=== PATIENT | male | born 1940 | race Caucasian/White ===

== ENCOUNTER 2017-08-14 17:03 | Inpatient (IN) | payer OTHER, MEDICARE ==
[~2017-08-14] VITALS: Ht 180.3 cm; Wt 90.1 kg
[2017-08-14] VITALS (7 sets, daily range): BP systolic 109–128; BP diastolic 70–76; PULSE 85–120; RESP 16–18; TEMP 98.2; O2SAT 92–94
[~2017-08-14 17:03] MED LIST: ALLO100T PO; ALPR.5 PO; ASPI81TA11 PO; CARA1TAB6 PO; FURO1TAB62 PO; LEVO25TA4 PO; METF1000 PO; Morphine Pump; PANT40TA3 PO; PRAV40TA2 PO; REGL10TA5 PO; TERA2CAP3 PO
--- NOTE | 2017-08-14 17:34 | PD ---
HPI Chief Complaint: Respiratory Symptoms Time Seen by Provider: 17:15 Travel History International Travel<30 days: No Contact w/Intl Traveler<30days: No Traveled to known affect area: No History of Present Illness HPI 77 y/o male presents with difficulty breathing that has been going on for the past 3 days per his . She states he's also been congested and complaining of heartburn. He denies any fever. Patient's states when he is been like this before he was given Lasix and followed with the urologist. Patient states his antique finisher is Dr. Tripp and he maybe saw her about 4 months ago. Patient denies any other concurrent complaints and does not wear oxygen at home. History is supplemented from the but still poor historians as notes she was also recently in the hospital. PFS Past Medical History Narrative Medical by records Anxiety: Yes Cancer: No Cardiac Catheterization: Yes ( "50% blockage" ) Cardiovascular Problems: Yes High Cholesterol: Yes Diabetes: Yes Diminished Hearing: No Genitourinary: No Hepatitis: Yes (A) Hiatal Hernia: No Neurologic: Yes (altered mental status) Psychiatric: Yes Reproductive: No Respiratory: Yes (SLEEEP APNEA) Immunizations Current: No Sleep Apnea: Yes Thyroid Disease: No Past Surgical History Narrative Surgical by records Abdominal Surgery: Yes (LAP RYLIE) Body Medical Devices: MORPHINE PUMP RIGHT ABDOMEN Cholecystectomy: Yes Pacemaker: No Other Surgery: Yes (FINGERS AMPUTATED TO RIGHT HAND AND NOSE SURGERY) Social History Alcohol Use: No Tobacco Use: No Substance Use: No Allergies-Medications (Allergen,Severity, Reaction): Coded Allergies: MRI PRECAUTION (Verified Adverse Reaction, Severe, SPINAL STIMULATOR, ) DML 08/13/16, Reported Meds & Prescriptions Reported Meds & Active Scripts Active Reported Potassium Chloride ER (Potassium Chloride) 10 Meq Cap 10 Meq PO DAILY Hydrocodone-Acetaminophen 10-325 mg Tab 1 Tab PO Q6H PRN Dicyclomine (Dicyclomine HCl) 20 Mg Tab 20 Mg PO QID Trazodone (Trazodone HCl) 100 Mg Tablet 150 Mg PO HS Krill Oil 1,000 Mg Cap 1,000 Mg PO BID Vitamin D-1000 (Cholecalciferol) 1,000 Unit Tab 2,000 Units PO DAILY Magnesium Oxide 500 Mg Tab 500 Mg PO BID Carafate (Sucralfate) 1 Gm Tab 1 Gm PO TID On empty stomach [Morphine Pump] Terazosin (Terazosin HCl) 2 Mg Cap 2 Mg PO HS Xanax (Alprazolam) 0.5 Mg Tab 0.5 Mg PO PRN Lasix (Furosemide) 20 Mg Tab 20 Mg PO BID MOWEFR Pantoprazole (Pantoprazole Sodium) 40 Mg Tab 40 Mg PO DAILY Levothyroxine (Levothyroxine Sodium) 25 Mcg Tab 25 Mcg PO DAILY Allopurinol 100 Mg Tab 100 Mg PO DAILY Metformin (Metformin HCl) 1,000 Mg Tab 1,000 Mg PO BIDPC With meals Review of Systems ROS Limitations: Poor Historian Except as stated in HPI: all other systems reviewed are Neg Physical Exam Exam Limitations: Poor Historian Narrative GENERAL: Well-nourished, well-developed patient who appears ill, wearing oxygen. SKIN: Warm and dry. HEAD: Normocephalic and atraumatic. EYES: No injection or drainage. ENT: No nasal drainage noted. NECK: Supple, trachea midline. CARDIOVASCULAR: irregular rate and rhythm RESPIRATORY: Decreased aeration bilaterally. No accessory muscle use. tachypnea noted GASTROINTESTINAL: Abdomen soft, non-tender, nondistended. EXTREMITIES: 2+ pitting edema noted to knee bilaterally NEUROLOGICAL: Awake. Moves all extremities and sensory grossly within normal limits. Normal speech. Data Data Last Documented VS Orders Orders Electrocardiogram (08/14/17 17:15) Complete Blood Count With Diff (08/14/17 17:15) Comprehensive Metabolic Panel (08/14/17 17:15) Prothrombin Time / Inr (Pt) (08/14/17 17:15) Act Partial Throm Time (Ptt) (08/14/17 17:15) Lactic Acid Sepsis Protocol (08/14/17 17:15) Magnesium (Mg) (08/14/17 17:15) Phosphorus (Po4) (08/14/17 17:15) Ckmb (Isoenzyme) Profile (08/14/17 17:15) Troponin I (08/14/17 17:15) Urinalysis - C+S If Indicated (08/14/17 17:15) Influenzae A/B Antigen (08/14/17 17:15) Blood Culture (08/14/17 17:15) Chest, Single Ap (08/14/17 17:15) Ecg Monitoring (08/14/17 17:15) Iv Access Insert/Monitor (08/14/17 17:15) Oximetry (08/14/17 17:15) B-Type Natriuretic Peptide (08/14/17 17:24) Furosemide Inj (Lasix Inj) (08/14/17 18:00) CKMB (08/14/17 17:40) CKMB% (08/14/17 17:40) Vancomycin Inj (Vancomycin Inj) (08/14/17 18:30) Cefepime Inj (Maxipime Inj) (08/14/17 18:30) Aspirin (Aspirin) (08/14/17 18:30) Diet Npo (08/14/17 Dinner) Heparin Inj (Heparin Inj) (08/14/17 19:00) Heparin Inj (Heparin Inj) (08/15/17 01:00) Heparin Inj (Heparin Inj) (08/15/17 01:00) Heparin-D5w 25,000 U/250 Ml (Heparin-D5w (08/14/17 19:00) Act Partial Throm Time (Ptt) (08/15/17 01:52) Consult Cardiology (08/14/17 ) Admit Order (Ed Use Only) (08/14/17 19:03) Labs Laboratory Tests Test 08/14/17 17:40 08/14/17 18:53 White Blood Count 12.9 TH/MM3 Red Blood Count 4.07 MIL/MM3 Hemoglobin 11.5 GM/DL Hematocrit 35.6 % Mean Corpuscular Volume 87.4 FL Mean Corpuscular Hemoglobin 28.3 PG Mean Corpuscular Hemoglobin Concent 32.4 % Red Cell Distribution Width 14.5 % Platelet Count 230 TH/MM3 Mean Platelet Volume 7.6 FL Neutrophils (%) (Auto) 88.9 % Lymphocytes (%) (Auto) 4.4 % Monocytes (%) (Auto) 6.2 % Eosinophils (%) (Auto) 0.2 % Basophils (%) (Auto) 0.3 % Neutrophils # (Auto) 11.5 TH/MM3 Lymphocytes # (Auto) 0.6 TH/MM3 Monocytes # (Auto) 0.8 TH/MM3 Eosinophils # (Auto) 0.0 TH/MM3 Basophils # (Auto) 0.0 TH/MM3 CBC Comment DIFF FINAL Differential Comment Prothrombin Time 13.8 SEC Prothromb Time International Ratio 1.2 RATIO Activated Partial Thromboplast Time 27.5 SEC Blood Urea Nitrogen 17 MG/DL Creatinine 1.10 MG/DL Random Glucose 150 MG/DL Total Protein 6.9 GM/DL Albumin 3.6 GM/DL Calcium Level 8.4 MG/DL Phosphorus Level 3.3 MG/DL Magnesium Level 1.4 MG/DL Alkaline Phosphatase 61 U/L Aspartate Amino Transf (AST/SGOT) 67 U/L Alanine Aminotransferase (ALT/SGPT) 23 U/L Total Bilirubin 0.7 MG/DL Sodium Level 133 MEQ/L Potassium Level 4.9 MEQ/L Chloride Level 98 MEQ/L Carbon Dioxide Level 19.7 MEQ/L Anion Gap 15 MEQ/L Estimat Glomerular Filtration Rate 65 ML/MIN Lactic Acid Level 5.2 mmol/L Total Creatine Kinase 292 U/L Creatine Kinase MB 15.5 NG/ML Troponin I GREATER THAN 40.00 NG/ML B-Type Natriuretic Peptide 610 PG/ML Urine Color YELLOW Urine Turbidity CLEAR Urine pH 5.5 Urine Specific [place] 1.010 Urine Protein NEG mg/dL Urine Glucose (UA) NEG mg/dL Urine Ketones 15 mg/dL Urine Occult Blood NEG Urine Nitrite NEG Urine Bilirubin NEG Urine Leukocyte Esterase NEG Urine WBC 0-2 /hpf Urine Squamous Epithelial Cells 0-5 /hpf Microscopic Urinalysis Comment CULT NOT INDICATED MDM Medical Decision Making Medical Screen Exam Complete: Yes Emergency Medical Condition: Yes Medical Record Reviewed: Yes (pmh confirmed, prior ekg compared) Interpretation(s) EKG shows A. fib with RVR in the 120s with concern of left bundle branch block on prior was normal sinus rhythm with only IV conduction delay CBC & BMP Diagram 08/14/17 17:40 Total Protein 6.9, Albumin 3.6, Calcium Level 8.4 L, Phosphorus Level 3.3, Magnesium Level 1.4 L, Alkaline Phosphatase 61, Aspartate Amino Transf (AST/SGOT ) 67 H, Alanine Aminotransferase (ALT/SGPT) 23, Total Bilirubin 0.7 Last 24 hours Impressions Chest X-Ray 08/14/17 1715 Signed Impressions: Service Date/Time: Monday, August 14, 2017 17:27 - CONCLUSION: Spinal stimulator Moderate congestive failure. Esdras Bermeo MD FACR Troponin is greater than 40 BNP is 610 Lactate is in the 5 range which is likely related to cardiac event but will give cefepime and vancomycin to cover that he does not need IV fluids as he is an active CHF exacerbation Differential Diagnosis Sepsis, pneumonia, A. fib with RVR, anemia, renal failure, CHF, pneumonia, URI Narrative Course Will check blood work, lactic acid, influenza, chest x-ray and reevaluate Patient informed of chest x-ray and given Lasix and updated, given concern of ekg and symptoms cardiology paged, given aspirin, will elevated lactic acid will give cefepime and vancomycin to provide broad coverage as well Patient updated about results and agrees to admission and transfer. Heart rate and symptoms have improved with Lasix, hold nitroglycerin given blood pressure at current time. We will be placing on heparin drip and keeping nothing by mouth. Family at bedside and updated Critical Care Narrative Aggregate critical care time was 35 minutes. Time to perform other separately billable procedures was not included in the critical care time. My time did not include minutes spent treating any other patients simultaneously or on activities that did not directly contribute to the patient's treatment. The services I provided to this patient were to treat and/or prevent clinically significant deterioration that could result in: Dysrhythmia, failure, respiratory distress, I provided critical care services requiring my management, as noted below: Chart data review, documentation time, medication orders and management, vital sign assessments/reviewing monitor data, ordering and reviewing lab tests, ordering and interpreting/reviewing x-rays and diagnostic studies, care of the patient and discussion of the patient with the admitting physicians. Physician Communication Physician Communication multiple calls placed to antique finisher and then notified in procedure I discussed with dr santana by cell phone and states to keep npo, send to the main and agrees to heparin drip dr rodríguez agrees to admit with icu team at [facility] Diagnosis Primary Impression: Myocardial infarction Qualified Codes: I21.4 - Non-ST elevation (NSTEMI) myocardial infarction Additional Impressions: CHF (congestive heart failure) Qualified Codes: I50.9 - Heart failure, unspecified Lactic acidosis Leukocytosis Qualified Codes: D72.829 - Elevated white blood cell count, unspecified Atrial fibrillation with RVR Admitting Information Admitting Physician Requests: Admit Scripts Budesonide-Formoterol Inh (Symbicort Inh) 160-4.5 Mcg/Act Aero 1 PUFF INH Q12HR, #1 INHALER 0 Refills Prov: Darion Lambert MD 08/16/17 Aspirin (Aspirin Low Strength) 81 Mg Chew 81 MG PO DAILY for cad, #30 EA 0 Refills Prov: Darion Lambert MD 08/16/17 Carvedilol (Coreg) 3.125 Mg Tab 3.125 MG PO BID for cad, #60 TAB 0 Refills Prov: Darion Lambert MD 08/16/17 Atorvastatin (Atorvastatin) 80 Mg Tab 80 MG PO HS for cad, #30 TAB 0 Refills Prov: Darion Lambert MD 08/16/17 Serenity Mancini MD Aug 14, 2017 17:34
[2017-08-14 17:52] LABS: AUTOMATED NEUTROPHIL # 11.5 TH/MM3 (1.8-7.7); BASOPHIL % 0.3 % (0.0-2.0); EOSINOPHIL % 0.2 % (0.0-4.0); HEMATOCRIT 35.6 % (39.0-51.0); HEMOGLOBIN 11.5 GM/DL (13.0-17.0); LYMPH % 4.4 % (9.0-44.0); LYMPHOCYTE # 0.6 TH/MM3 (1.0-4.8); MEAN CELL VOLUME 87.4 FL (80.0-100.0); MEAN CORPUSCULAR HEMOGLOBIN 28.3 PG (27.0-34.0); MEAN CORPUSCULAR HGB CONC 32.4 % (32.0-36.0); MEAN PLATELET VOLUME 7.6 FL (7.0-11.0); MONO % 6.2 % (0.0-8.0); MONOCYTE # 0.8 TH/MM3 (0-0.9); NEUT % 88.9 % (16.0-70.0); PLATELET COUNT 230 TH/MM3 (150-450); RED BLOOD COUNT 4.07 MIL/MM3 (4.50-5.90); RED CELL DISTRIBUTION WIDTH 14.5 % (11.6-17.2); WHITE BLOOD COUNT 12.9 TH/MM3 (4.0-11.0)
[2017-08-14] MEDS ORDERED: DICY20TA10 PO ×2 (17:53)
[2017-08-14] MEDS ORDERED: METO25TA3 PO ×2 (17:53)
[2017-08-14] MEDS ORDERED: POTA10CA PO ×2 (17:53)
[2017-08-14] MEDS ORDERED: MAGN500T2 PO ×2 (17:53)
[2017-08-14] MEDS ORDERED: HYDR-3583 PO ×2 (17:53)
[2017-08-14] MEDS ORDERED: VITA1000 PO ×2 (17:53)
[2017-08-14] MEDS ORDERED: TRAZ100T6 PO ×2 (17:53)
[2017-08-14] MEDS ORDERED: KRIL1000 PO ×2 (17:53)
--- NOTE | 2017-08-14 17:53 | RADRPT ---
EXAM DATE/TIME: 08/14/2017 17:27 [place] COMPARISON: CHEST SINGLE AP, August 13, 2016, 13:43. INDICATIONS : Shortness of breath. MEDICAL HISTORY : Hypertension. SURGICAL HISTORY : Cardiac catheterization. Spinal chord stimulator. Pain pump. ENCOUNTER: Initial ACUITY: 1 day PAIN SCORE: 0/10 LOCATION: Bilateral chest FINDINGS: The heart is enlarged with mild interstitial edema. Spinal stimulator is noted. There is either con solidation, pleural effusion or pneumothorax. Degenerative changes are present about the left should er. CONCLUSION: Spinal stimulator Moderate congestive failure. Esdras Bermeo MD FACR on August 14, 2017 at 17:50 Board Certified Radiologist. This report was verified electronically.
[2017-08-14] MEDS ORDERED: FUROSEMIDE 40 MG/4 ML VIAL IV PUSH ONE ×2 (18:00)
[2017-08-14 18:01] LABS: CHLORIDE 98 MEQ/L (98-107); SODIUM (NA) 133 MEQ/L (136-145)
[2017-08-14 18:04] LABS: CALCIUM 8.4 MG/DL (8.5-10.1)
[2017-08-14 18:05] LABS: ALBUMIN 3.6 GM/DL (3.4-5.0); BICARBONATE 19.7 MEQ/L (21.0-32.0); BLOOD UREA NITROGEN 17 MG/DL (7-18); GLUCOSE,RANDOM 150 MG/DL (74-106); INTERNATIONAL NORMALIZED RATIO 1.2 RATIO; MAGNESIUM 1.4 MG/DL (1.5-2.5); PROTHROMBIN TIME - PATIENT 13.8 SEC (9.8-11.6)
[2017-08-14 18:08] LABS: ALT (GPT) 23 U/L (12-78); AST (GOT) 67 U/L (15-37); GLOMERULAR FILTRATION RATE 65 ML/MIN (>89); PHOSPHORUS 3.3 MG/DL (2.5-4.9)
[2017-08-14 18:09] LABS: TOTAL BILIRUBIN ADULT 0.7 MG/DL (0.2-1.0); TOTAL PROTEIN 6.9 GM/DL (6.4-8.2)
[2017-08-14 18:11] LABS: ALKALINE PHOSPHATASE 61 U/L (45-117)
[2017-08-14 18:20] LABS: LACTIC ACID SEPSIS PROTOCOL 5.2 mmol/L (0.4-2.0)
[2017-08-14] MEDS ORDERED: VANCOMYCIN INJ 1,000 MG in SODIUM CHLOR 0.9% 250 ML INJ 250 ML IV ONE ×4 (18:30)
[2017-08-14] MEDS ORDERED: CEFEPIME INJ 2,000 MG in SODIUM CHLORIDE 0.9% INJ 100 ML IV ONE ×4 (18:30)
[2017-08-14] MEDS ORDERED: ASPIRIN 325 MG TAB PO ONE ×2 (18:30)
[2017-08-14 18:44] LABS: TROPONIN I GREATER THAN 40.00 NG/ML (0.02-0.05)
[2017-08-14] MEDS ORDERED: HEPARIN-D5W 25,000 U/250 ML 250 ML IV PRN ×2 (19:00)
[2017-08-14] MEDS ORDERED: HEPARIN SODIUM - IV 10,000 UNITS/10 ML VIAL IV PUSH ONE ×2 (19:00)
[2017-08-14 19:04] LABS: BILIRUBIN, URINE NEG (NEG); BLOOD, URINE NEG (NEG); GLUCOSE,URINE NEG (NEG); KETONE, URINE 15 mg/dL (NEG); NITRITE,URINE NEG (NEG); PH, URINE 5.5 (5.0-8.5); URINE LEUKOCYTE ESTERASE NEG (NEG)
[2017-08-14 19:23] LABS: URINE COLOR YELLOW (YELLW/STRAW)
[2017-08-14 19:24] LABS: SQUAMOUS EPITHELIAL CELL URINE 0-5 /hpf (0-5); WBC, URINE 0-2 /hpf (0-5)
[2017-08-14] MEDS ORDERED: NITROGLYCERIN-D5W 50 MG/250 ML 250 ML IV PRN ×2 (20:00)
[2017-08-14] MEDS ORDERED: DILTIAZEM HCL 25 MG/5 ML VIAL IV ONE ×2 (20:00)
[2017-08-14] MEDS ORDERED: NITROGLYCERIN 2% OINT 1 GM PACKET TOPICAL ONE ×2 (20:15)
--- NOTE | 2017-08-14 20:20 | PD ---
Physical Exam Date Seen by Provider: Aug 14, 2017 Time Seen by Provider: 20:02 Narrative GENERAL: Well-developed well-nourished male in no acute distress no respiratory distress resting 30 semi fowlers SKIN: Warm and dry. HEAD: Normocephalic. EYES: No scleral icterus. No injection or drainage. NECK: Supple, trachea midline. No JVD or lymphadenopathy. CARDIOVASCULAR: Increased irregular irregular rate and rhythm without murmurs, gallops, or rubs. RESPIRATORY: Breath sounds equal bilaterally. No accessory muscle use. GASTROINTESTINAL: Abdomen soft, non-tender, nondistended. MUSCULOSKELETAL: No cyanosis, or edema. BACK: Nontender without obvious deformity. No CVA tenderness. Data Data Last Documented VS Vital Signs Date Time Temp Pulse Resp B/P (MAP) Pulse Ox O2 Delivery O2 Flow Rate FiO2 08/14/17 18:13 85 16 112/71 (85) 94 Nasal Cannula 2.00 08/14/17 17:05 98.2 Orders Orders Electrocardiogram (08/14/17 17:15) Complete Blood Count With Diff (08/14/17 17:15) Comprehensive Metabolic Panel (08/14/17 17:15) Prothrombin Time / Inr (Pt) (08/14/17 17:15) Act Partial Throm Time (Ptt) (08/14/17 17:15) Lactic Acid Sepsis Protocol (08/14/17 17:15) Magnesium (Mg) (08/14/17 17:15) Phosphorus (Po4) (08/14/17 17:15) Ckmb (Isoenzyme) Profile (08/14/17 17:15) Troponin I (08/14/17 17:15) Urinalysis - C+S If Indicated (08/14/17 17:15) Influenzae A/B Antigen (08/14/17 17:15) Blood Culture (08/14/17 17:15) Chest, Single Ap (08/14/17 17:15) Ecg Monitoring (08/14/17 17:15) Iv Access Insert/Monitor (08/14/17 17:15) Oximetry (08/14/17 17:15) B-Type Natriuretic Peptide (08/14/17 17:24) Furosemide Inj (Lasix Inj) (08/14/17 18:00) CKMB (08/14/17 17:40) CKMB% (08/14/17 17:40) Vancomycin Inj (Vancomycin Inj) (08/14/17 18:30) Cefepime Inj (Maxipime Inj) (08/14/17 18:30) Aspirin (Aspirin) (08/14/17 18:30) Diet Npo (08/14/17 Dinner) Heparin Inj (Heparin Inj) (08/14/17 19:00) Heparin Inj (Heparin Inj) (08/15/17 01:00) Heparin Inj (Heparin Inj) (08/15/17 01:00) Heparin-D5w 25,000 U/250 Ml (Heparin-D5w (08/14/17 19:00) Cbc No Diff, Includes Plts (08/17/17 06:00) Act Partial Throm Time (Ptt) (08/15/17 01:52) Occult Blood (Hemoccult) Stool (08/14/17 18:52) Consult Cardiology (08/14/17 ) Admit Order (Ed Use Only) (08/14/17 19:03) Labs Laboratory Tests Test 08/14/17 17:40 08/14/17 18:53 White Blood Count 12.9 TH/MM3 Red Blood Count 4.07 MIL/MM3 Hemoglobin 11.5 GM/DL Hematocrit 35.6 % Mean Corpuscular Volume 87.4 FL Mean Corpuscular Hemoglobin 28.3 PG Mean Corpuscular Hemoglobin Concent 32.4 % Red Cell Distribution Width 14.5 % Platelet Count 230 TH/MM3 Mean Platelet Volume 7.6 FL Neutrophils (%) (Auto) 88.9 % Lymphocytes (%) (Auto) 4.4 % Monocytes (%) (Auto) 6.2 % Eosinophils (%) (Auto) 0.2 % Basophils (%) (Auto) 0.3 % Neutrophils # (Auto) 11.5 TH/MM3 Lymphocytes # (Auto) 0.6 TH/MM3 Monocytes # (Auto) 0.8 TH/MM3 Eosinophils # (Auto) 0.0 TH/MM3 Basophils # (Auto) 0.0 TH/MM3 CBC Comment DIFF FINAL Differential Comment Prothrombin Time 13.8 SEC Prothromb Time International Ratio 1.2 RATIO Activated Partial Thromboplast Time 27.5 SEC Blood Urea Nitrogen 17 MG/DL Creatinine 1.10 MG/DL Random Glucose 150 MG/DL Total Protein 6.9 GM/DL Albumin 3.6 GM/DL Calcium Level 8.4 MG/DL Phosphorus Level 3.3 MG/DL Magnesium Level 1.4 MG/DL Alkaline Phosphatase 61 U/L Aspartate Amino Transf (AST/SGOT) 67 U/L Alanine Aminotransferase (ALT/SGPT) 23 U/L Total Bilirubin 0.7 MG/DL Sodium Level 133 MEQ/L Potassium Level 4.9 MEQ/L Chloride Level 98 MEQ/L Carbon Dioxide Level 19.7 MEQ/L Anion Gap 15 MEQ/L Estimat Glomerular Filtration Rate 65 ML/MIN Lactic Acid Level 5.2 mmol/L Total Creatine Kinase 292 U/L Creatine Kinase MB 15.5 NG/ML Troponin I GREATER THAN 40.00 NG/ML B-Type Natriuretic Peptide 610 PG/ML Urine Color YELLOW Urine Turbidity CLEAR Urine pH 5.5 Urine Specific [place] 1.010 Urine Protein NEG mg/dL Urine Glucose (UA) NEG mg/dL Urine Ketones 15 mg/dL Urine Occult Blood NEG Urine Nitrite NEG Urine Bilirubin NEG Urine Leukocyte Esterase NEG Urine WBC 0-2 /hpf Urine Squamous Epithelial Cells 0-5 /hpf Microscopic Urinalysis Comment CULT NOT INDICATED MDM Medical Record Reviewed: Yes Supervised Visit with JORDAN: No Interpretation(s) EKG #2 with chest pain atrial fibrillation with RVR rate 109-120 marked left axis deviation left bundle branch block SRT elevation persists v2-v4; unchanged from prior EKG performed at 1734 PM except for rate Differential Diagnosis acute [place], chf, afrvr, cardiogenic shock Narrative Course As to patient's bedside as patient is now complaining of 5/10 chest pain; EKG reordered to be performed shows atrial fibrillation with RVR rate 109-120, Cardizem 10 mg IV ordered along with nitroglycerin infusion Administered infusion pending therefore half inch Nitropaste applied to the chest wall; patient's pain has increased to 7/10 in intensity but is otherwise voicing no other concerns or complaints call placed to cardiology on-call @2019 p.m. [facility] @ 20:[address] Cordova --request patient transport as a STEMI alert at 20: 27; STEMI alert called laborer electroplating notified Dr Cordova reports he is already at [facility] @ 20:42 patient leaving EMS bay; metoprolol cancelled Physician Communication Physician Communication call placed to Dr Cordova [phone] Diagnosis Primary Impression: Myocardial infarction Additional Impressions: Atrial fibrillation with RVR CHF (congestive heart failure) Leukocytosis Lactic acidosis Admitting Information Admitting Physician Requests: Admit Hannah Alexander MD Aug 14, 2017 20:19
--- NOTE | 2017-08-14 20:20 | PD ---
Physical Exam Date Seen by Provider: Aug 14, 2017 Time Seen by Provider: 20:02 Narrative GENERAL: Well-developed well-nourished male in no acute distress no respiratory distress resting 30 semi fowlers SKIN: Warm and dry. HEAD: Normocephalic. EYES: No scleral icterus. No injection or drainage. NECK: Supple, trachea midline. No JVD or lymphadenopathy. CARDIOVASCULAR: Increased irregular irregular rate and rhythm without murmurs, gallops, or rubs. RESPIRATORY: Breath sounds equal bilaterally. No accessory muscle use. GASTROINTESTINAL: Abdomen soft, non-tender, nondistended. MUSCULOSKELETAL: No cyanosis, or edema. BACK: Nontender without obvious deformity. No CVA tenderness. Data Data Last Documented VS Vital Signs Date Time Temp Pulse Resp B/P (MAP) Pulse Ox O2 Delivery O2 Flow Rate FiO2 08/14/17 18:13 85 16 112/71 (85) 94 Nasal Cannula 2.00 08/14/17 17:05 98.2 Orders Orders Electrocardiogram (08/14/17 17:15) Complete Blood Count With Diff (08/14/17 17:15) Comprehensive Metabolic Panel (08/14/17 17:15) Prothrombin Time / Inr (Pt) (08/14/17 17:15) Act Partial Throm Time (Ptt) (08/14/17 17:15) Lactic Acid Sepsis Protocol (08/14/17 17:15) Magnesium (Mg) (08/14/17 17:15) Phosphorus (Po4) (08/14/17 17:15) Ckmb (Isoenzyme) Profile (08/14/17 17:15) Troponin I (08/14/17 17:15) Urinalysis - C+S If Indicated (08/14/17 17:15) Influenzae A/B Antigen (08/14/17 17:15) Blood Culture (08/14/17 17:15) Chest, Single Ap (08/14/17 17:15) Ecg Monitoring (08/14/17 17:15) Iv Access Insert/Monitor (08/14/17 17:15) Oximetry (08/14/17 17:15) B-Type Natriuretic Peptide (08/14/17 17:24) Furosemide Inj (Lasix Inj) (08/14/17 18:00) CKMB (08/14/17 17:40) CKMB% (08/14/17 17:40) Vancomycin Inj (Vancomycin Inj) (08/14/17 18:30) Cefepime Inj (Maxipime Inj) (08/14/17 18:30) Aspirin (Aspirin) (08/14/17 18:30) Diet Npo (08/14/17 Dinner) Heparin Inj (Heparin Inj) (08/14/17 19:00) Heparin Inj (Heparin Inj) (08/15/17 01:00) Heparin Inj (Heparin Inj) (08/15/17 01:00) Heparin-D5w 25,000 U/250 Ml (Heparin-D5w (08/14/17 19:00) Cbc No Diff, Includes Plts (08/17/17 06:00) Act Partial Throm Time (Ptt) (08/15/17 01:52) Occult Blood (Hemoccult) Stool (08/14/17 18:52) Consult Cardiology (08/14/17 ) Admit Order (Ed Use Only) (08/14/17 19:03) Labs Laboratory Tests Test 08/14/17 17:40 08/14/17 18:53 White Blood Count 12.9 TH/MM3 Red Blood Count 4.07 MIL/MM3 Hemoglobin 11.5 GM/DL Hematocrit 35.6 % Mean Corpuscular Volume 87.4 FL Mean Corpuscular Hemoglobin 28.3 PG Mean Corpuscular Hemoglobin Concent 32.4 % Red Cell Distribution Width 14.5 % Platelet Count 230 TH/MM3 Mean Platelet Volume 7.6 FL Neutrophils (%) (Auto) 88.9 % Lymphocytes (%) (Auto) 4.4 % Monocytes (%) (Auto) 6.2 % Eosinophils (%) (Auto) 0.2 % Basophils (%) (Auto) 0.3 % Neutrophils # (Auto) 11.5 TH/MM3 Lymphocytes # (Auto) 0.6 TH/MM3 Monocytes # (Auto) 0.8 TH/MM3 Eosinophils # (Auto) 0.0 TH/MM3 Basophils # (Auto) 0.0 TH/MM3 CBC Comment DIFF FINAL Differential Comment Prothrombin Time 13.8 SEC Prothromb Time International Ratio 1.2 RATIO Activated Partial Thromboplast Time 27.5 SEC Blood Urea Nitrogen 17 MG/DL Creatinine 1.10 MG/DL Random Glucose 150 MG/DL Total Protein 6.9 GM/DL Albumin 3.6 GM/DL Calcium Level 8.4 MG/DL Phosphorus Level 3.3 MG/DL Magnesium Level 1.4 MG/DL Alkaline Phosphatase 61 U/L Aspartate Amino Transf (AST/SGOT) 67 U/L Alanine Aminotransferase (ALT/SGPT) 23 U/L Total Bilirubin 0.7 MG/DL Sodium Level 133 MEQ/L Potassium Level 4.9 MEQ/L Chloride Level 98 MEQ/L Carbon Dioxide Level 19.7 MEQ/L Anion Gap 15 MEQ/L Estimat Glomerular Filtration Rate 65 ML/MIN Lactic Acid Level 5.2 mmol/L Total Creatine Kinase 292 U/L Creatine Kinase MB 15.5 NG/ML Troponin I GREATER THAN 40.00 NG/ML B-Type Natriuretic Peptide 610 PG/ML Urine Color YELLOW Urine Turbidity CLEAR Urine pH 5.5 Urine Specific [place] 1.010 Urine Protein NEG mg/dL Urine Glucose (UA) NEG mg/dL Urine Ketones 15 mg/dL Urine Occult Blood NEG Urine Nitrite NEG Urine Bilirubin NEG Urine Leukocyte Esterase NEG Urine WBC 0-2 /hpf Urine Squamous Epithelial Cells 0-5 /hpf Microscopic Urinalysis Comment CULT NOT INDICATED MDM Medical Record Reviewed: Yes Supervised Visit with JORDAN: No Interpretation(s) EKG #2 with chest pain atrial fibrillation with RVR rate 109-120 marked left axis deviation left bundle branch block SRT elevation persists v2-v4; unchanged from prior EKG performed at 1734 PM except for rate Differential Diagnosis acute [place], chf, afrvr, cardiogenic shock Narrative Course As to patient's bedside as patient is now complaining of 5/10 chest pain; EKG reordered to be performed shows atrial fibrillation with RVR rate 109-120, Cardizem 10 mg IV ordered along with nitroglycerin infusion Administered infusion pending therefore half inch Nitropaste applied to the chest wall; patient's pain has increased to 7/10 in intensity but is otherwise voicing no other concerns or complaints call placed to cardiology on-call @2019 p.m. [facility] @ 20:[address] Cordova --request patient transport as a STEMI alert at 20: 27; STEMI alert called builder's labourer notified Dr Cordova reports he is already at [facility] @ 20:42 patient leaving EMS bay; metoprolol cancelled Physician Communication Physician Communication call placed to Dr Cordova [phone] Diagnosis Primary Impression: Myocardial infarction Additional Impressions: Atrial fibrillation with RVR CHF (congestive heart failure) Leukocytosis Lactic acidosis Admitting Information Admitting Physician Requests: Admit Hannah Alexander MD Aug 14, 2017 20:19
--- NOTE | 2017-08-14 20:20 | PD ---
Physical Exam Date Seen by Provider: Aug 14, 2017 Time Seen by Provider: 20:02 Narrative GENERAL: Well-developed well-nourished male in no acute distress no respiratory distress resting 30 semi fowlers SKIN: Warm and dry. HEAD: Normocephalic. EYES: No scleral icterus. No injection or drainage. NECK: Supple, trachea midline. No JVD or lymphadenopathy. CARDIOVASCULAR: Increased irregular irregular rate and rhythm without murmurs, gallops, or rubs. RESPIRATORY: Breath sounds equal bilaterally. No accessory muscle use. GASTROINTESTINAL: Abdomen soft, non-tender, nondistended. MUSCULOSKELETAL: No cyanosis, or edema. BACK: Nontender without obvious deformity. No CVA tenderness. Data Data Last Documented VS Vital Signs Date Time Temp Pulse Resp B/P (MAP) Pulse Ox O2 Delivery O2 Flow Rate FiO2 08/14/17 18:13 85 16 112/71 (85) 94 Nasal Cannula 2.00 08/14/17 17:05 98.2 Orders Orders Electrocardiogram (08/14/17 17:15) Complete Blood Count With Diff (08/14/17 17:15) Comprehensive Metabolic Panel (08/14/17 17:15) Prothrombin Time / Inr (Pt) (08/14/17 17:15) Act Partial Throm Time (Ptt) (08/14/17 17:15) Lactic Acid Sepsis Protocol (08/14/17 17:15) Magnesium (Mg) (08/14/17 17:15) Phosphorus (Po4) (08/14/17 17:15) Ckmb (Isoenzyme) Profile (08/14/17 17:15) Troponin I (08/14/17 17:15) Urinalysis - C+S If Indicated (08/14/17 17:15) Influenzae A/B Antigen (08/14/17 17:15) Blood Culture (08/14/17 17:15) Chest, Single Ap (08/14/17 17:15) Ecg Monitoring (08/14/17 17:15) Iv Access Insert/Monitor (08/14/17 17:15) Oximetry (08/14/17 17:15) B-Type Natriuretic Peptide (08/14/17 17:24) Furosemide Inj (Lasix Inj) (08/14/17 18:00) CKMB (08/14/17 17:40) CKMB% (08/14/17 17:40) Vancomycin Inj (Vancomycin Inj) (08/14/17 18:30) Cefepime Inj (Maxipime Inj) (08/14/17 18:30) Aspirin (Aspirin) (08/14/17 18:30) Diet Npo (08/14/17 Dinner) Heparin Inj (Heparin Inj) (08/14/17 19:00) Heparin Inj (Heparin Inj) (08/15/17 01:00) Heparin Inj (Heparin Inj) (08/15/17 01:00) Heparin-D5w 25,000 U/250 Ml (Heparin-D5w (08/14/17 19:00) Cbc No Diff, Includes Plts (08/17/17 06:00) Act Partial Throm Time (Ptt) (08/15/17 01:52) Occult Blood (Hemoccult) Stool (08/14/17 18:52) Consult Cardiology (08/14/17 ) Admit Order (Ed Use Only) (08/14/17 19:03) Labs Laboratory Tests Test 08/14/17 17:40 08/14/17 18:53 White Blood Count 12.9 TH/MM3 Red Blood Count 4.07 MIL/MM3 Hemoglobin 11.5 GM/DL Hematocrit 35.6 % Mean Corpuscular Volume 87.4 FL Mean Corpuscular Hemoglobin 28.3 PG Mean Corpuscular Hemoglobin Concent 32.4 % Red Cell Distribution Width 14.5 % Platelet Count 230 TH/MM3 Mean Platelet Volume 7.6 FL Neutrophils (%) (Auto) 88.9 % Lymphocytes (%) (Auto) 4.4 % Monocytes (%) (Auto) 6.2 % Eosinophils (%) (Auto) 0.2 % Basophils (%) (Auto) 0.3 % Neutrophils # (Auto) 11.5 TH/MM3 Lymphocytes # (Auto) 0.6 TH/MM3 Monocytes # (Auto) 0.8 TH/MM3 Eosinophils # (Auto) 0.0 TH/MM3 Basophils # (Auto) 0.0 TH/MM3 CBC Comment DIFF FINAL Differential Comment Prothrombin Time 13.8 SEC Prothromb Time International Ratio 1.2 RATIO Activated Partial Thromboplast Time 27.5 SEC Blood Urea Nitrogen 17 MG/DL Creatinine 1.10 MG/DL Random Glucose 150 MG/DL Total Protein 6.9 GM/DL Albumin 3.6 GM/DL Calcium Level 8.4 MG/DL Phosphorus Level 3.3 MG/DL Magnesium Level 1.4 MG/DL Alkaline Phosphatase 61 U/L Aspartate Amino Transf (AST/SGOT) 67 U/L Alanine Aminotransferase (ALT/SGPT) 23 U/L Total Bilirubin 0.7 MG/DL Sodium Level 133 MEQ/L Potassium Level 4.9 MEQ/L Chloride Level 98 MEQ/L Carbon Dioxide Level 19.7 MEQ/L Anion Gap 15 MEQ/L Estimat Glomerular Filtration Rate 65 ML/MIN Lactic Acid Level 5.2 mmol/L Total Creatine Kinase 292 U/L Creatine Kinase MB 15.5 NG/ML Troponin I GREATER THAN 40.00 NG/ML B-Type Natriuretic Peptide 610 PG/ML Urine Color YELLOW Urine Turbidity CLEAR Urine pH 5.5 Urine Specific Kersey 1.010 Urine Protein NEG mg/dL Urine Glucose (UA) NEG mg/dL Urine Ketones 15 mg/dL Urine Occult Blood NEG Urine Nitrite NEG Urine Bilirubin NEG Urine Leukocyte Esterase NEG Urine WBC 0-2 /hpf Urine Squamous Epithelial Cells 0-5 /hpf Microscopic Urinalysis Comment CULT NOT INDICATED MDM Medical Record Reviewed: Yes Supervised Visit with JORDAN: No Interpretation(s) EKG #2 with chest pain atrial fibrillation with RVR rate 109-120 marked left axis deviation left bundle branch block SRT elevation persists v2-v4; unchanged from prior EKG performed at 1734 PM except for rate Differential Diagnosis acute IL, chf, afrvr, cardiogenic shock Narrative Course As to patient's bedside as patient is now complaining of 5/10 chest pain; EKG reordered to be performed shows atrial fibrillation with RVR rate 109-120, Cardizem 10 mg IV ordered along with nitroglycerin infusion Administered infusion pending therefore half inch Nitropaste applied to the chest wall; patient's pain has increased to 7/10 in intensity but is otherwise voicing no other concerns or complaints call placed to cardiology on-call @2019 p.m. [facility] [place] Cordova --request patient transport as a STEMI alert at 20: 27; STEMI alert called cathodic protection technician notified Dr Cordova reports he is already at [facility] @ 20:42 patient leaving EMS bay; metoprolol cancelled Physician Communication Physician Communication call placed to Dr Cordova [phone] Diagnosis Primary Impression: Myocardial infarction Additional Impressions: Atrial fibrillation with RVR CHF (congestive heart failure) Leukocytosis Lactic acidosis Admitting Information Admitting Physician Requests: Admit Hannah Alexander MD Aug 14, 2017 20:19
[2017-08-14] MEDS ORDERED: METOPROLOL TARTRATE 5 MG/5 ML VIAL IV PUSH ONE ×2 (20:45)
[2017-08-14] MEDS ORDERED: MIDAZOLAM HCL 2 MG/2 ML VIAL ONE ×2 (21:10)
[2017-08-14] MEDS ORDERED: HEPARIN-NS/PF INJ 1,000 ML ONE ×2 (21:10)
[2017-08-14] MEDS ORDERED: SODIUM CHLORID 0.9% 500 ML INJ 500 ML ONE ×2 (21:10)
[2017-08-14] MEDS ORDERED: HEPARIN SODIUM - IV 10,000 UNITS/10 ML VIAL ONE ×2 (21:10)
[2017-08-14] MEDS ORDERED: MIDAZOLAM HCL 2 MG/2 ML VIAL IV ONE ×2 (21:24)
[2017-08-14] MEDS ORDERED: HEPARIN SODIUM - IV 10,000 UNITS/10 ML VIAL IV ONE ×2 (21:32)
[2017-08-14] MEDS ORDERED: NITROGLYCERIN INJ 5 ML ONE ×2 (21:42)
[2017-08-14] MEDS ORDERED: CLOPIDOGREL 300 MG TAB ONE ×2 (21:52)
[2017-08-14] MEDS ORDERED: CLOPIDOGREL 300 MG TAB PO ONE ×4 (21:55→22:15)
--- NOTE | 2017-08-14 22:06 | CATHPROC ---
Phrazit HIS Report Study Information Study Number Scheduled Start Study Start [id number] 08/14/2017 Aug 14 2017 9:08PM Referring Institution Admit Source Facility Department 1 Emergency department [facility] - Regional Medical Director Physician and Clinical Staff Initial Nima Leonard Dray Driverrigoberto Dalal RN, Polly Solares RN Other cathlab, cathlab Recorder Aaron Singh RCIS(BS) Chandler Tellez RCIS(BS) Procedures Performed Procedure Location (Site) Vessel Name Coronary Angiograms LCA Left Coronary Coronary Angiograms RCA Right Coronary L Heart Cath LV Gram-hand inj. LV LV Ventricle PTCA LAD Mid Left Coronary Wire insertion Fem Art (right) Femoral Art Equipment Time Dockmaster Description Size Mfg Part Number Used/Scraped COPILOT VALVE, BLEEDBACK [id number] 21:33 [employer] Used CONTROL *[id number] PERCLOSE, PRO GLIDE CLOSER 21:54 [place]ICAL [place]ARE [place] 6 [id number] *[id number] Used DEVICE WIRE, BALANCE MIDDLEWEIGHT [id number] 21:35 [employer] 190CM Used 190CM (SAMANTHA) *[id number] TRANSDUCER, TRUWAVE [id number] 21:25 FONTAINE ROY * Used W/STOCKCOCK *[id number] INTRODUCER SET, 21:25 [employer] FR 5 [id number] *[id number] Used MICROPUNCTURE, STIFFENED [id number] *[id number] [id number] *[id number] 21:25 ISIS sentronics PACK, CCL CUSTOM * Used *[id number] 21:34 MEDTRONIC BALLOON, 2.0 X 12MM EUPHORA 12MM Used *[id number] 21:33 MEDTRONIC/AVE EBU 3.5 Z2 GUIDE CATHETER FR 6 Used *[id number] 21:34 Ebook Glue MEDICAL 30 ELMIRA INDEFLATOR Used *[id number] 21:25 Ebook Glue MEDICAL WIRE, 3MMJ .035 180CM 180CM Used *[id number] 21:25 NAMIC MANIFOLD, 4 PORT * Used *[id number] 21:25 NYCOMED OMNIPAQUE, 350 MG, 150ML 150ML [id number] Used [id number] 21:25 CRUZ MEDICAL BLANKET,WARM AIR CCL * Used *[id number] 21:25 TERUMO MEDICAL SHEATH, FR5 TERUMO (10CM) FR 5 Used *[id number] 21:25 TERUMO MEDICAL SHEATH, FR6 TERUMO (10CM) FR 6 Used *[id number] Equipment Model, Serial, Lot Number and Expiration Data Description Model Number Serial Number Lot Number Expiration Date BALLOON, 2.0 X 12MM EUPHORA [id number] 03-31-2019 PERCLOSE, PRO GLIDE CLOSER [id number] 02-12-2019 DEVICE History: Current Medications Medication Dosage/Unit Route Frequency Last Date/Time Taken Statins (any) Beta Corbin ASA History: Allergies Allergy Reaction MRI PRECAUTION SPINAL STIMULATOR History: Risk Factors Family History of Hypertension Dyslipidemia Previous AL Previous Heart Failure Premature CAD Yes Yes No No No Prior Valve Prior PCI Prior CABG Surgery No No No Cerebrovascular Peripheral Artery Chronic Lung On Dialysis Diabetes Diabetes Therapy Disease Disease Disease No No No Yes Yes Oral History: Symptoms/Diagnosis Selection Items Chest pain History: Stress Tests Stress or Imaging Studies Performed No History: Other Disease Selection Items HTN History: Other Current Smoker No Labs Hgb (g/dl) Hct (%) WBC (l/cumm) Platelets (thousands) 11.60-17.00 35.00-51.00 4.00-11.00 150.00-450.00 11.5 35.6 12.9 230 Glucose (mg/dl) BUN (mg/dl) Creatinine (mg/dl) BUN:Creatinine (1:x) 74.00-106.00 7.00-18.00 0.50-1.30 10.00-20.00 150 17 1.1 15.5 Na (meq/l) K (meq/l) 136.00-145.00 3.50-5.10 133 4.9 INR (PTT:PT) 0.90-1.10 1.2 Troponin I (ng/ml) CPK (u/l) CPK-MB (ng/ML) 0.02-0.05 26.00-308.00 0.50-3.60 40 292 15.5 Medication Medication Total Dose (Bolus/Oral) Medication Total Dosage/Unit 1% XYLOCAINE 20 mL FENTANYL 50 mcg HEPARIN 5000 units NTG (IC) 300 mcg PLAVIX 600 mg VERSED 1 mg Medications (Bolus/Oral) Medication Time Given Dosage/Unit Administered By Reason 1% XYLOCAINE 08/14/2017 9:22:40 PM 20 mL Nima Phan 20 mL 1% XYLOCAINE given in lab by Nima Phan in Right Groin via Subcutaneous. FENTANYL 08/14/2017 9:22:50 PM 50 mcg Reinaldo Dalal RN 50 mcg FENTANYL given in lab by Reinaldo Dalal RN in Right Antecubital via Peripheral IV. Ordered by Co Nima Balderas. VERSED 08/14/2017 9:23:13 PM 1 mg Reinaldo Dalal RN 1 mg VERSED given in lab by Reinaldo Dalal RN in Right Antecubital via Peripheral IV. Ordered by Nima Merida. HEPARIN 08/14/2017 9:32:37 PM 5000 units Polly Haines 5000 units HEPARIN given in lab by Polly Haines RN in Right Antecubital via Peripheral IV. Ordere d by Nima Phan. NTG (IC) 08/14/2017 9:41:51 PM 100 mcg Tasha-Nia Nima 100 mcg NTG (IC) given in lab by Nima Phan via Intra-coronary. NTG (IC) 08/14/2017 9:42:00 PM 100 mcg Tasha-Nia Nima 100 mcg NTG (IC) given in lab by Nima Phan via Intra-coronary. NTG (IC) 08/14/2017 9:46:09 PM 100 mcg Tasha-Nia Nima 100 mcg NTG (IC) given in lab by Nima Phan via Intra-coronary. Ordered by Nima Phan. PLAVIX 08/14/2017 9:55:02 PM 600 mg Reinaldo Dalal RN 600 mg PLAVIX given in lab by Reinaldo Dalal RN via Oral. Ordered by Nima Phan. Medication (Drip) Medication Time Given Dosage/Unit Concentration/Unit Diluent (ml) Solution IV Solutions 08/14/2017 9:08:23 PM 0 mL (IV) 500 NaCl .9 Patient arrived on IV Solutions given by [email or web address] in Right Antecubital via Peripheral IV. Pum p/Drip Flow = 20 ml/hr using NaCl .9. Ordered by Nima Phan. Initial Case Assessment Cardiovascular HR Rhythm NIBP Chest Pain 101 afib 118/77 5 Edema Present Skin color Skin None Normal Warm Dry Circulatory - Right Pulses Posterior Tibial Femoral 1 2 Scale (0,1,2,3,4,d) Circulatory - Left Pulses Posterior Tibial Femoral 1 2 Scale (0,1,2,3,4,d) Neurological State Oriented to time-place- Alert Moves all extremities person Respiration - General Respiration Rate SpO2 (%) (B/min) 15 97 Final Case Assessment Cardiovascular HR Rhythm NIBP Chest Pain 101 afib 120/84 0 Edema Present Skin color Skin None Normal Warm Dry Circulatory - Right Pulses Posterior Tibial Femoral 1 2 Scale (0,1,2,3,4,d) Circulatory - Left Pulses Posterior Tibial Femoral 1 2 Scale (0,1,2,3,4,d) Neurological State Oriented to time-place- Alert Moves all extremities person Respiration - General Respiration Rate SpO2 (%) (B/min) 15 95 Chronological Log Time Study Chronological Log 21:08:11 Patient arrived via Bed. Heparin drip DCed per md upon patient arrival. 21:08:11 Patient Name, D.O.B, / Armband Verified By R.N. 21:08:12 Consent signed by the physician and the patient and verified by the Regional Medical Director staff. 21:08:15 Pre-op and post- op instructions given; patient acknowledges understanding of instructions . 21:08:15 Verbal Stimulation=2 Physical Stimulation=2 Airway=2 Respiration=2 TOTAL=8. (0=absent, 1=l imited, 2=present) 21:08:16 Presedation assessment performed by Regional Medical Director RN. 21:08:17 Immediate Presedation assesment performed by physician. 21:08:17 Patient has been NPO for More than 6Hrs. 21:08:18 Skin Breakdown- rash left groin 21:08:20 Patient Warmer Placed on the Table. 21:08:21 Disposable Defibrillator Pads Placed On Patient. 21:08:21 Lavelle Prominences Protected 21:08:22 A # 20 IV was noted in the Antecubital (right). Grade = 0 21:08:22 A # 20 IV was noted in the Forearm (right). Grade = 0 Patient arrived on IV Solutions given by cathlab, cathlab in Right Antecubital via Peripheral IV. Pump/Drip Flow = 20 21:08:23 ml/hr using NaCl .9. Ordered by Nima Phan. 21:08:25 History and physical on the chart or being dictated. Vitals capture started with the following parameters, Patient=Adult, Interval=2 min, Initial Pr hinouc=701 mmHg, 21:12:50 Deflation Rate=5 mmHg, Cuff placed on Left Arm 21:13:29 EL=658 bpm, RVFZ=692/77 mmhg, SpO2=97.0 %, Resp=15 B/min, Pain=0, Messi=10, Mcclendon=2 Assessment: Initial Case, PB=083 BPM, Rhythm=afib, AIXM=385/77 mmhg, Chest Pain=5, Edema=None, Color=Normal, Skin = Warm, Dry Right Pulses: Post Tib=1, Femoral=2 21:14:54 Left Pulses: Post Tib=1, Femoral=2 Neurological: State=Alert, Ox3, CULLEN Respiration: Resp=15 B/min, SpO2=97 % 21:15:22 DU=865 bpm, NGUE=315/89 mmhg, SpO2=97.0 %, Resp=16 B/min, Pain=0, Messi=10, Mcclendon=2 21:16:46 Bilateral groins prepped with 2% chlorhexidine, and draped after a 3 minute waiting time. 21:17:22 EK=581 bpm, DWED=755/88 mmhg, SpO2=96.0 %, Resp=19 B/min, Pain=4, Messi=10, Mcclendon=2 21:19:23 DU=266 bpm, PNLX=891/84 mmhg, SpO2=96.0 %, Resp=16 B/min, Pain=4, Messi=10, Mcclendon=2 21:21:01 Pressure channel 1 zeroed. 21:21:22 NW=324 bpm, AFSI=242/86 mmhg, SpO2=97.0 %, Resp=15 B/min, Pain=4, Messi=10, Mcclendon=2 21:21:47 MD arrived. ::55 Contrast Scanned ::56 Immediate Presedation assesment performed by physician. Time Out. Correct patient, correct procedure, correct physician, power injector loaded, or not loaded with contrast with ::56 surgical team present. Time Out Concurred by MD and individual staff in procedure. :57 Case Start :: Verbal Stimulation=2 Physical Stimulation=2 Airway=2 Respiration=1 TOTAL=8. (0=absent, 1=li mited, 2=present) 21:22:40 20 mL 1% XYLOCAINE given in lab by Nima Phan in Right Groin via Subcutaneous. 21::50 50 mcg FENTANYL given in lab by Reinaldo Dalal RN in Right Antecubital via Peripheral IV. Ord ered by Nima Phan. 21:23:13 1 mg VERSED given in lab by Reinaldo Dalal RN in Right Antecubital via Peripheral IV. Ordered by Nima Phan. 21::23 PG=334 bpm, QMLW=347/81 mmhg, SpO2=98.0 %, Resp=25 B/min, Pain=4, Messi=10, Mcclendon=2 21:24:36 Access site was Right Femoral Artery. A INTRODUCER SET, MICROPUNCTURE, STIFFENED FR 5 was advanced into the Fem Art (right) using the :40 Percutaneous technique. A SHEATH, FR6 TERUMO (10CM) FR 6 was exchanged in the Fem Art (right). This was necessary in or nessa to :25:02 accomodate a larger catheter. 21:25:24 TH=300 bpm, DFJL=621/77 mmhg, SpO2=96.0 %, Resp=15 B/min, Pain=4, Messi=10, Mcclendon=2 A JR 4.0 INFINITI CATHETER FR 5 was advanced over a wire. OMNIPAQUE, 350 MG, 150ML 150ML was us ed for :25:38 injections. 21:26:09 Reference ECG taken Recorded Pressure: LV, HR=99, Condition=Condition 1 21:27:09 (Left Ventricle) LV 154/85/90 21:27:23 EQ=615 bpm, GQXO=580/81 mmhg, SpO2=96.0 %, Resp=16 B/min, Pain=4, Messi=10, Mcclendon=2 21:27:47 The LV was manually injected with 10 cc's and visualized. OMNIPAQUE, 350 MG, 150ML 150ML us ed. Recorded Pressure: LV, Ao, HR=97, Condition=Condition 1 21:28:01 (Left Ventricle) LV 99/18/24, (Aorta) Ao 108/73/90 21:28:39 The RCA was injected and visualized at various angles. OMNIPAQUE, 350 MG, 150ML 150ML used . :29:23 AC=325 bpm, ACFC=501/75 mmhg, SpO2=96.0 %, Resp=16 B/min, Pain=0, Messi=10, Mcclendon=2 After removing the current catheter a JL 4.0 INFINITI CATHETER FR 5 was advanced over a WIRE, 3 MMJ .035 180CM :29:23 180CM. 21:31:11 The LCA was injected and visualized at various angles. OMNIPAQUE, 350 MG, 150ML 150ML used . 21:31:26 QO=886 bpm, EMBZ=339/70 mmhg, SpO2=96.0 %, Resp=16 B/min, Pain=0, Messi=10, Mcclendon=2 21:31:41 Catheter was removed 5000 units HEPARIN given in lab by Polly Haines RN in Right Antecubital via Peripheral IV. Ordered by Emilie, 21:32:37 Nima. 21:33:25 IV=327 bpm, JMJI=561/67 mmhg, SpO2=96.0 %, Resp=16 B/min, Pain=4, Messi=10, Mcclendon=2 21:35:26 WS=471 bpm, EUIY=838/79 mmhg, SpO2=96.0 %, Resp=16 B/min, Pain=4, Messi=10, Mcclendon=2 21:35:30 A WIRE, BALANCE MIDDLEWEIGHT 190CM (SAMANTHA) 190CM was inserted via Fem Art (right). 21:36:52 Interventional wire has crossed the lesion A BALLOON, 2.0 X 12MM EUPHORA 12MM was inserted over WIRE, BALANCE MIDDLEWEIGHT 190CM (SAMANTHA) 19 0CM 21:36:57 via the LAD Mid. 21:37:27 HR=97 bpm, BEAU=667/74 mmhg, SpO2=96.0 %, Resp=19 B/min, Pain=0, Messi=10, Mcclendon=2 A BALLOON, 2.0 X 12MM EUPHORA 12MM over a WIRE, BALANCE MIDDLEWEIGHT 190CM (SAMANTHA) 190CM in the LAD 21:38:40 Mid was inflated using a 30 ELMIRA INDEFLATOR at 10 elmira for 10 sec. A BALLOON, 2.0 X 12MM EUPHORA 12MM over a WIRE, BALANCE MIDDLEWEIGHT 190CM (SAMANTHA) 190CM in the LAD 21:39:14 Mid was inflated using a 30 ELMIRA INDEFLATOR at 10 elmira for 15 sec. 21:39:21 BQ=518 bpm, SWCI=559/80 mmhg, SpO2=97.0 %, Resp=15 B/min, Pain=0, Messi=10, Mcclendon=2 21:40:22 Balloon Removed. 21:41:26 TA=699 bpm, CGXC=109/78 mmhg, SpO2=97.0 %, Resp=15 B/min, Pain=4, Messi=10, Mcclendon=2 21:41:51 100 mcg NTG (IC) given in lab by Nima Phan via Intra-coronary. 21:42:00 100 mcg NTG (IC) given in lab by Nima Phan via Intra-coronary. 21:43:27 MD=963 bpm, QUBV=453/69 mmhg, SpO2=97.0 %, Resp=15 B/min, Pain=0, Messi=10, Mcclendon=2 A BALLOON, 2.0 X 12MM EUPHORA 12MM over a WIRE, BALANCE MIDDLEWEIGHT 190CM (SAMANTHA) 190CM in the LAD 21:43:37 Mid was inflated using a 30 ELMIRA INDEFLATOR at 12 elmira for 10 sec. A BALLOON, 2.0 X 12MM EUPHORA 12MM over a WIRE, BALANCE MIDDLEWEIGHT 190CM (SAMANTHA) 190CM in the LAD 21:43:51 Mid was inflated using a 30 ELMIRA INDEFLATOR at 12 elmira for 10 sec. A BALLOON, 2.0 X 12MM EUPHORA 12MM over a WIRE, BALANCE MIDDLEWEIGHT 190CM (SAMANTHA) 190CM in the LAD 21:44:10 Mid was inflated using a 30 ELMIRA INDEFLATOR at 10 elmira for 10 sec. A BALLOON, 2.0 X 12MM EUPHORA 12MM over a WIRE, BALANCE MIDDLEWEIGHT 190CM (SAMANTHA) 190CM in the LAD 21:44:13 Mid was inflated using a 30 ELMIRA INDEFLATOR at 10 elmira for 10 sec. A BALLOON, 2.0 X 12MM EUPHORA 12MM over a WIRE, BALANCE MIDDLEWEIGHT 190CM (SAMANTHA) 190CM in the LAD 21:44:21 Mid was inflated using a 30 ELMIRA INDEFLATOR at 10 elmira for 10 sec. 21:45:26 EU=573 bpm, SRZA=268/62 mmhg, SpO2=95.0 %, Resp=23 B/min, Pain=0, Messi=10, Mcclendon=2 A BALLOON, 2.0 X 12MM EUPHORA 12MM over a WIRE, BALANCE MIDDLEWEIGHT 190CM (SAMANTHA) 190CM in the LAD 21:45:42 Mid was inflated using a 30 ELMIRA INDEFLATOR at 12 elmira for 15 sec. 21:46:09 100 mcg NTG (IC) given in lab by Nima Phan via Intra-coronary. Ordered by Nima Wilkins. 21:47:25 DW=139 bpm, QXGB=534/71 mmhg, SpO2=95.0 %, Resp=16 B/min, Pain=0, Messi=10, Mcclendon=2 21:49:26 HR=98 bpm, MRVX=033/68 mmhg, SpO2=96.0 %, Resp=12 B/min, Pain=4, Messi=10, Mcclendon=2 21:49:59 Balloon Removed. 21:50:01 Wire removed 21:51:26 IR=408 bpm, WHMT=966/75 mmhg, SpO2=97.0 %, Resp=16 B/min, Pain=4, Messi=10, Mcclendon=2 21:52:32 Catheter was removed 21:53:10 An injection in the Fem Art (right) was made through the SHEATH, FR6 TERUMO (10CM) FR 6. 21:53:29 IL=116 bpm, XLXU=124/72 mmhg, SpO2=97.0 %, Resp=16 B/min, Pain=0, Messi=10, Mcclendon=2 21:54:26 PERCLOSE, PRO GLIDE CLOSER DEVICE FR 6 placement in the Fem Art (right) 21:55:02 600 mg PLAVIX given in lab by Reinaldo Dalal RN via Oral. Ordered by Nima Phan. 21:55:26 IJ=363 bpm, PPDI=335/84 mmhg, SpO2=96.0 %, Resp=15 B/min, Pain=0, Messi=10, Mcclendon=2 Assessment: Final Case, IJ=615 BPM, Rhythm=afib, UHOZ=644/84 mmhg, Chest Pain=0, Edema=None, Color=Normal, Skin = Warm, Dry Right Pulses: Post Tib=1, Femoral=2 21:55:37 Left Pulses: Post Tib=1, Femoral=2 Neurological: State=Alert, Ox3, CULLEN Respiration: Resp=15 B/min, SpO2=95 % 21:56:06 Case End 21:56:10 No case complications noted. 21:56:10 Cine recording checked. 21:56:13 Bedside Report will be given. 21:56:16 Contrast Scanned 21:56:17 Verbal Stimulation=2 Physical Stimulation=2 Airway=2 Respiration=2 TOTAL=8. (0=absent, 1=l imited, 2=present) 21:56:26 A Left Heart Cath was performed. 21:57:27 FP=247 bpm, CKSA=424/83 mmhg, SpO2=96.0 %, Resp=16 B/min, Pain=0, Messi=10, Mcclendon=2 21:59:28 PE=748 bpm, ZNPT=755/83 mmhg, SpO2=99.0 %, Resp=22 B/min, Pain=0, Messi=10, Mcclendon=2 22:00:15 Sterile dressing applied to site 22:01:27 PG=291 bpm, SZFE=080/84 mmhg, SpO2=99.0 %, Resp=19 B/min, Pain=0, Messi=10, Mcclendon=2 22:03:18 Patient moved to stretcher 22:03:29 EE=913 bpm, VYHA=320/80 mmhg, SpO2=98.0 %, Resp=15 B/min, Pain=0, Messi=10, Mcclendon=2 22:04:02 Vitals capture stopped. End Study - Contrast Media Used In Study Contrast Total Opened (mL) Total Used (mL) Total Wasted (mL) Omnipaque 130 130 0 End Study - Maximum Contrast Load Max Contrast Load (mL) 386.4 End Study - Radiation Exposure Fluoro Time (minutes) 11.1 End Study - Patient Disposition Complications Transferred To Interventional Outcome No Telemetry Bed successful
--- NOTE | 2017-08-14 22:06 | CATHPROC ---
[employer] HIS Report Study Information Study Number Scheduled Start Study Start [id number] 08/14/2017 Aug 14 2017 9:08PM Referring Institution Admit Source Facility Department 1 Emergency department [facility] - Fight Manager Physician and Clinical Staff Initial Nima Leonard Wheel Molderrigoberto Dalal RN, Polly Solares RN Other cathlab, cathlab Recorder Aaron Singh RCIS(BS) Chandler Tellez RCIS(BS) Procedures Performed Procedure Location (Site) Vessel Name Coronary Angiograms LCA Left Coronary Coronary Angiograms RCA Right Coronary L Heart Cath LV Gram-hand inj. LV LV Ventricle PTCA LAD Mid Left Coronary Wire insertion Fem Art (right) Femoral Art Equipment Time Under Water Assistant Description Size Mfg Part Number Used/Scraped COPILOT VALVE, BLEEDBACK [id number] 21:33 [employer] Used CONTROL *[id number] PERCLOSE, PRO GLIDE CLOSER 21:54 [place] [place] FR 6 [id number] *[id number] Used DEVICE WIRE, BALANCE MIDDLEWEIGHT [id number] 21:35 [employer] 190CM Used 190CM (SAMANTHA) *[id number] TRANSDUCER, TRUWAVE [id number] 21:25 FONTAINE ROY * Used W/STOCKCOCK *[id number] INTRODUCER SET, 21:25 [employer] FR 5 [id number] *[id number] Used MICROPUNCTURE, STIFFENED [id number] *[id number] 534-521T *[id number] 21:25 [employer] PACK, CCL CUSTOM * Used *[id number] 21:34 [employer] BALLOON, 2.0 X 12MM EUPHORA 12MM Used *[id number] 21:33 [employer]/AVE EBU 3.5 Z2 GUIDE CATHETER FR 6 Used *[id number] 21:34 [employer] MEDICAL 30 [place]A INDEFLATOR Used *[id number] 21:25 [employer] MEDICAL WIRE, 3MMJ .035 180CM 180CM Used *[id number] 21:25 NAMIC MANIFOLD, 4 PORT * Used *[id number] 21:25 NYCOMED OMNIPAQUE, 350 MG, 150ML 150ML [id number] Used [id number] 21:25 [employer] BLANKET,WARM AIR CCL * Used *[id number] 21:25 TERUMO MEDICAL SHEATH, FR5 TERUMO (10CM) FR 5 Used *[id number] 21:25 [employer] MEDICAL SHEATH, FR6 TERUMO (10CM) FR 6 Used *[id number] Equipment Model, Serial, Lot Number and Expiration Data Description Model Number Serial Number Lot Number Expiration Date BALLOON, 2.0 X 12MM EUPHORA [id number] 03-31-2019 PERCLOSE, PRO GLIDE CLOSER [id number] 02-12-2019 DEVICE History: Current Medications Medication Dosage/Unit Route Frequency Last Date/Time Taken Statins (any) Beta Corbin ASA History: Allergies Allergy Reaction MRI PRECAUTION SPINAL STIMULATOR History: Risk Factors Family History of Hypertension Dyslipidemia Previous GA Previous Heart Failure Premature CAD Yes Yes No No No Prior Valve Prior PCI Prior CABG Surgery No No No Cerebrovascular Peripheral Artery Chronic Lung On Dialysis Diabetes Diabetes Therapy Disease Disease Disease No No No Yes Yes Oral History: Symptoms/Diagnosis Selection Items Chest pain History: Stress Tests Stress or Imaging Studies Performed No History: Other Disease Selection Items HTN History: Other Current Smoker No Labs Hgb (g/dl) Hct (%) WBC (l/cumm) Platelets (thousands) 11.60-17.00 35.00-51.00 4.00-11.00 150.00-450.00 11.5 35.6 12.9 230 Glucose (mg/dl) BUN (mg/dl) Creatinine (mg/dl) BUN:Creatinine (1:x) 74.00-106.00 7.00-18.00 0.50-1.30 10.00-20.00 150 17 1.1 15.5 Na (meq/l) K (meq/l) 136.00-145.00 3.50-5.10 133 4.9 INR (PTT:PT) 0.90-1.10 1.2 Troponin I (ng/ml) CPK (u/l) CPK-MB (ng/ML) 0.02-0.05 26.00-308.00 0.50-3.60 40 292 15.5 Medication Medication Total Dose (Bolus/Oral) Medication Total Dosage/Unit 1% XYLOCAINE 20 mL FENTANYL 50 mcg HEPARIN 5000 units NTG (IC) 300 mcg PLAVIX 600 mg VERSED 1 mg Medications (Bolus/Oral) Medication Time Given Dosage/Unit Administered By Reason 1% XYLOCAINE 08/14/2017 9:22:40 PM 20 mL Nima Phan 20 mL 1% XYLOCAINE given in lab by Nima Phan in Right Groin via Subcutaneous. FENTANYL 08/14/2017 9:22:50 PM 50 mcg Reinaldo Dalal RN 50 mcg FENTANYL given in lab by Reinaldo Dalal RN in Right Antecubital via Peripheral IV. Ordered by Co Nima Balderas. VERSED 08/14/2017 9:23:13 PM 1 mg Reinaldo Dalal RN 1 mg VERSED given in lab by Reinaldo Dalal RN in Right Antecubital via Peripheral IV. Ordered by Nima Merida. HEPARIN 08/14/2017 9:32:37 PM 5000 units Polly Haines 5000 units HEPARIN given in lab by Polly Haines RN in Right Antecubital via Peripheral IV. Ordere d by Nima Phan. NTG (IC) 08/14/2017 9:41:51 PM 100 mcg Tasha-Nia Nima 100 mcg NTG (IC) given in lab by Nima Phan via Intra-coronary. NTG (IC) 08/14/2017 9:42:00 PM 100 mcg Tasha-Nia Nima 100 mcg NTG (IC) given in lab by Nima Phan via Intra-coronary. NTG (IC) 08/14/2017 9:46:09 PM 100 mcg Tasha-Nia Nima 100 mcg NTG (IC) given in lab by Nima Phan via Intra-coronary. Ordered by Nima Phan. PLAVIX 08/14/2017 9:55:02 PM 600 mg Reinaldo Dalal RN 600 mg PLAVIX given in lab by Reinaldo Dalal RN via Oral. Ordered by Nima Phan. Medication (Drip) Medication Time Given Dosage/Unit Concentration/Unit Diluent (ml) Solution IV Solutions 08/14/2017 9:08:23 PM 0 mL (IV) 500 NaCl .9 Patient arrived on IV Solutions given by [email or web address] in Right Antecubital via Peripheral IV. Pum p/Drip Flow = 20 ml/hr using NaCl .9. Ordered by Nima Phan. Initial Case Assessment Cardiovascular HR Rhythm NIBP Chest Pain 101 afib 118/77 5 Edema Present Skin color Skin None Normal Warm Dry Circulatory - Right Pulses Posterior Tibial Femoral 1 2 Scale (0,1,2,3,4,d) Circulatory - Left Pulses Posterior Tibial Femoral 1 2 Scale (0,1,2,3,4,d) Neurological State Oriented to time-place- Alert Moves all extremities person Respiration - General Respiration Rate SpO2 (%) (B/min) 15 97 Final Case Assessment Cardiovascular HR Rhythm NIBP Chest Pain 101 afib 120/84 0 Edema Present Skin color Skin None Normal Warm Dry Circulatory - Right Pulses Posterior Tibial Femoral 1 2 Scale (0,1,2,3,4,d) Circulatory - Left Pulses Posterior Tibial Femoral 1 2 Scale (0,1,2,3,4,d) Neurological State Oriented to time-place- Alert Moves all extremities person Respiration - General Respiration Rate SpO2 (%) (B/min) 15 95 Chronological Log Time Study Chronological Log 21:08:11 Patient arrived via Bed. Heparin drip DCed per md upon patient arrival. 21:08:11 Patient Name, D.O.B, / Armband Verified By R.N. 21:08:12 Consent signed by the physician and the patient and verified by the Fight [employer] staff. 21:08:15 Pre-op and post- op instructions given; patient acknowledges understanding of instructions . 21:08:15 Verbal Stimulation=2 Physical Stimulation=2 Airway=2 Respiration=2 TOTAL=8. (0=absent, 1=l imited, 2=present) 21:08:16 Presedation assessment performed by Fight Manager RN. 21:08:17 Immediate Presedation assesment performed by physician. 21:08:17 Patient has been NPO for More than 6Hrs. 21:08:18 Skin Breakdown- rash left groin 21:08:20 Patient Warmer Placed on the Table. 21:08:21 Disposable Defibrillator Pads Placed On Patient. 21:08:21 Lavelle Prominences Protected 21:08:22 A # 20 IV was noted in the Antecubital (right). Grade = 0 21:08:22 A # 20 IV was noted in the Forearm (right). Grade = 0 Patient arrived on IV Solutions given by cathlab, cathlab in Right Antecubital via Peripheral IV. Pump/Drip Flow = 20 21:08:23 ml/hr using NaCl .9. Ordered by Nima Phan. 21:08:25 History and physical on the chart or being dictated. Vitals capture started with the following parameters, Patient=Adult, Interval=2 min, Initial Pr lzcmyr=591 mmHg, 21:12:50 Deflation Rate=5 mmHg, Cuff placed on Left Arm 21:13:29 AU=142 bpm, NOHN=696/77 mmhg, SpO2=97.0 %, Resp=15 B/min, Pain=0, Messi=10, Mcclnedon=2 Assessment: Initial Case, CC=276 BPM, Rhythm=afib, HCZP=406/77 mmhg, Chest Pain=5, Edema=None, Color=Normal, Skin = Warm, Dry Right Pulses: Post Tib=1, Femoral=2 21:14:54 Left Pulses: Post Tib=1, Femoral=2 Neurological: State=Alert, Ox3, CULLEN Respiration: Resp=15 B/min, SpO2=97 % 21:15:22 LF=150 bpm, QGZG=371/89 mmhg, SpO2=97.0 %, Resp=16 B/min, Pain=0, Messi=10, Mcclendon=2 21:16:46 Bilateral groins prepped with 2% chlorhexidine, and draped after a 3 minute waiting time. 21:17:22 DN=189 bpm, FAVC=561/88 mmhg, SpO2=96.0 %, Resp=19 B/min, Pain=4, Messi=10, Mcclendon=2 21:19:23 JX=309 bpm, UUCR=598/84 mmhg, SpO2=96.0 %, Resp=16 B/min, Pain=4, Messi=10, Mcclendon=2 21:21:01 Pressure channel 1 zeroed. 21:21:22 BX=521 bpm, BWZR=986/86 mmhg, SpO2=97.0 %, Resp=15 B/min, Pain=4, Messi=10, Mcclendon=2 21:21:47 MD arrived. ::55 Contrast Scanned ::56 Immediate Presedation assesment performed by physician. Time Out. Correct patient, correct procedure, correct physician, power injector loaded, or not loaded with contrast with ::56 surgical team present. Time Out Concurred by MD and individual staff in procedure. :57 Case Start :: Verbal Stimulation=2 Physical Stimulation=2 Airway=2 Respiration=1 TOTAL=8. (0=absent, 1=li mited, 2=present) 21:22:40 20 mL 1% XYLOCAINE given in lab by Nima Phan in Right Groin via Subcutaneous. 21::50 50 mcg FENTANYL given in lab by Reinaldo Dalal RN in Right Antecubital via Peripheral IV. Ord ered by Nima Phan. 21:23:13 1 mg VERSED given in lab by Reinaldo Dalal RN in Right Antecubital via Peripheral IV. Ordered by Nima Phan. 21::23 EF=126 bpm, YFFQ=665/81 mmhg, SpO2=98.0 %, Resp=25 B/min, Pain=4, Messi=10, Mcclendon=2 21:24:36 Access site was Right Femoral Artery. A INTRODUCER SET, MICROPUNCTURE, STIFFENED FR 5 was advanced into the Fem Art (right) using the :40 Percutaneous technique. A SHEATH, FR6 TERUMO (10CM) FR 6 was exchanged in the Fem Art (right). This was necessary in or nessa to :25:02 accomodate a larger catheter. 21:25:24 RQ=460 bpm, ODRB=755/77 mmhg, SpO2=96.0 %, Resp=15 B/min, Pain=4, Messi=10, Mcclendon=2 A JR 4.0 INFINITI CATHETER FR 5 was advanced over a wire. OMNIPAQUE, 350 MG, 150ML 150ML was us ed for :25:38 injections. 21:26:09 Reference ECG taken Recorded Pressure: LV, HR=99, Condition=Condition 1 21:27:09 (Left Ventricle) LV 154/85/90 21:27:23 MU=097 bpm, RJHE=053/81 mmhg, SpO2=96.0 %, Resp=16 B/min, Pain=4, Messi=10, Mcclendon=2 21:27:47 The LV was manually injected with 10 cc's and visualized. OMNIPAQUE, 350 MG, 150ML 150ML us ed. Recorded Pressure: LV, Ao, HR=97, Condition=Condition 1 21:28:01 (Left Ventricle) LV 99/18/24, (Aorta) Ao 108/73/90 21:28:39 The RCA was injected and visualized at various angles. OMNIPAQUE, 350 MG, 150ML 150ML used . :29:23 JQ=829 bpm, HRUK=085/75 mmhg, SpO2=96.0 %, Resp=16 B/min, Pain=0, Messi=10, Mcclendon=2 After removing the current catheter a JL 4.0 INFINITI CATHETER FR 5 was advanced over a WIRE, 3 MMJ .035 180CM :29:23 180CM. 21:31:11 The LCA was injected and visualized at various angles. OMNIPAQUE, 350 MG, 150ML 150ML used . 21:31:26 QN=236 bpm, WBQL=908/70 mmhg, SpO2=96.0 %, Resp=16 B/min, Pain=0, Messi=10, Mcclendon=2 21:31:41 Catheter was removed 5000 units HEPARIN given in lab by Polly Haines RN in Right Antecubital via Peripheral IV. Ordered by Emilie, 21:32:37 Nima. 21:33:25 CM=140 bpm, TCOH=548/67 mmhg, SpO2=96.0 %, Resp=16 B/min, Pain=4, Messi=10, Mcclendon=2 21:35:26 XL=372 bpm, HRQV=509/79 mmhg, SpO2=96.0 %, Resp=16 B/min, Pain=4, Messi=10, Mcclendon=2 21:35:30 A WIRE, BALANCE MIDDLEWEIGHT 190CM (SAMANTHA) 190CM was inserted via Fem Art (right). 21:36:52 Interventional wire has crossed the lesion A BALLOON, 2.0 X 12MM EUPHORA 12MM was inserted over WIRE, BALANCE MIDDLEWEIGHT 190CM (SAMANTHA) 19 0CM 21:36:57 via the LAD Mid. 21:37:27 HR=97 bpm, QPSN=488/74 mmhg, SpO2=96.0 %, Resp=19 B/min, Pain=0, Messi=10, Mcclendon=2 A BALLOON, 2.0 X 12MM EUPHORA 12MM over a WIRE, BALANCE MIDDLEWEIGHT 190CM (SAMANTHA) 190CM in the LAD 21:38:40 Mid was inflated using a 30 ELMIRA INDEFLATOR at 10 elmira for 10 sec. A BALLOON, 2.0 X 12MM EUPHORA 12MM over a WIRE, BALANCE MIDDLEWEIGHT 190CM (SAMANTHA) 190CM in the LAD 21:39:14 Mid was inflated using a 30 ELMIRA INDEFLATOR at 10 elmira for 15 sec. 21:39:21 UP=924 bpm, ERFX=184/80 mmhg, SpO2=97.0 %, Resp=15 B/min, Pain=0, Messi=10, Mcclendon=2 21:40:22 Balloon Removed. 21:41:26 TU=241 bpm, OSOV=549/78 mmhg, SpO2=97.0 %, Resp=15 B/min, Pain=4, Messi=10, Mcclendon=2 21:41:51 100 mcg NTG (IC) given in lab by Nima Phan via Intra-coronary. 21:42:00 100 mcg NTG (IC) given in lab by Nima Phan via Intra-coronary. 21:43:27 RU=045 bpm, JPSK=980/69 mmhg, SpO2=97.0 %, Resp=15 B/min, Pain=0, Messi=10, Mcclendon=2 A BALLOON, 2.0 X 12MM EUPHORA 12MM over a WIRE, BALANCE MIDDLEWEIGHT 190CM (SAMNATHA) 190CM in the LAD 21:43:37 Mid was inflated using a 30 ELMIRA INDEFLATOR at 12 elmira for 10 sec. A BALLOON, 2.0 X 12MM EUPHORA 12MM over a WIRE, BALANCE MIDDLEWEIGHT 190CM (SAMANTHA) 190CM in the LAD 21:43:51 Mid was inflated using a 30 ELMIRA INDEFLATOR at 12 elmira for 10 sec. A BALLOON, 2.0 X 12MM EUPHORA 12MM over a WIRE, BALANCE MIDDLEWEIGHT 190CM (SAMANTHA) 190CM in the LAD 21:44:10 Mid was inflated using a 30 ELMIRA INDEFLATOR at 10 elmira for 10 sec. A BALLOON, 2.0 X 12MM EUPHORA 12MM over a WIRE, BALANCE MIDDLEWEIGHT 190CM (SAMANTHA) 190CM in the LAD 21:44:13 Mid was inflated using a 30 EL[place]IRA INDEFLATOR at 10 elmira for 10 sec. A BALLOON, 2.0 X 12MM EUPHORA 12MM over a WIRE, BALANCE MIDDLEWEIGHT 190CM (SAMANTHA) 190CM in the LAD 21:44:21 Mid was inflated using a 30 ELMIRA INDEFLATOR at 10 elmira for 10 sec. 21:45:26 SG=548 bpm, JNWU=027/62 mmhg, SpO2=95.0 %, Resp=23 B/min, Pain=0, Messi=10, Mcclendon=2 A BALLOON, 2.0 X 12MM EUPHORA 12MM over a WIRE, BALANCE MIDDLEWEIGHT 190CM (SAMANTHA) 190CM in the LAD 21:45:42 Mid was inflated using a 30 ELMIRA INDEFLATOR at 12 elmira for 15 sec. 21:46:09 100 mcg NTG (IC) given in lab by Nima Phan via Intra-coronary. Ordered by Nima Wilkins. 21:47:25 GU=320 bpm, PYYT=348/71 mmhg, SpO2=95.0 %, Resp=16 B/min, Pain=0, Messi=10, Mcclendon=2 21:49:26 HR=98 bpm, DRHA=522/68 mmhg, SpO2=96.0 %, Resp=12 B/min, Pain=4, Messi=10, Mcclendon=2 21:49:59 Balloon Removed. 21:50:01 Wire removed 21:51:26 YM=730 bpm, KLJW=827/75 mmhg, SpO2=97.0 %, Resp=16 B/min, Pain=4, Messi=10, Mcclendon=2 21:52:32 Catheter was removed 21:53:10 An injection in the Fem Art (right) was made through the SHEATH, FR6 TERUMO (10CM) FR 6. 21:53:29 YU=344 bpm, SIDI=736/72 mmhg, SpO2=97.0 %, Resp=16 B/min, Pain=0, Messi=10, Mcclendon=2 21:54:26 PERCLOSE, PRO GLIDE CLOSER DEVICE FR 6 placement in the Fem Art (right) 21:55:02 600 mg PLAVIX given in lab by Reinaldo Dalal RN via Oral. Ordered by Nima Phan. 21:55:26 VI=028 bpm, PWPS=172/84 mmhg, SpO2=96.0 %, Resp=15 B/min, Pain=0, Messi=10, Mcclendon=2 Assessment: Final Case, GK=052 BPM, Rhythm=afib, XWZC=432/84 mmhg, Chest Pain=0, Edema=None, Color=Normal, Skin = Warm, Dry Right Pulses: Post Tib=1, Femoral=2 21:55:37 Left Pulses: Post Tib=1, Femoral=2 Neurological: State=Alert, Ox3, CULLEN Respiration: Resp=15 B/min, SpO2=95 % 21:56:06 Case End 21:56:10 No case complications noted. 21:56:10 Cine recording checked. 21:56:13 Bedside Report will be given. 21:56:16 Contrast Scanned 21:56:17 Verbal Stimulation=2 Physical Stimulation=2 Airway=2 Respiration=2 TOTAL=8. (0=absent, 1=l imited, 2=present) 21:56:26 A Left Heart Cath was performed. 21:57:27 MC=914 bpm, EGGQ=642/83 mmhg, SpO2=96.0 %, Resp=16 B/min, Pain=0, Messi=10, Mcclendon=2 21:59:28 IB=052 bpm, MJTP=887/83 mmhg, SpO2=99.0 %, Resp=22 B/min, Pain=0, Messi=10, Mcclendon=2 22:00:15 Sterile dressing applied to site 22:01:27 PK=511 bpm, WXAQ=705/84 mmhg, SpO2=99.0 %, Resp=19 B/min, Pain=0, Messi=10, Mcclendon=2 22:03:18 Patient moved to stretcher 22:03:29 RZ=456 bpm, VHEC=385/80 mmhg, SpO2=98.0 %, Resp=15 B/min, Pain=0, Messi=10, Mcclendon=2 22:04:02 Vitals capture stopped. End Study - Contrast Media Used In Study Contrast Total Opened (mL) Total Used (mL) Total Wasted (mL) Omnipaque 130 130 0 End Study - Maximum Contrast Load Max Contrast Load (mL) 386.4 End Study - Radiation Exposure Fluoro Time (minutes) 11.1 End Study - Patient Disposition Complications Transferred To Interventional Outcome No Telemetry Bed successful
--- NOTE | 2017-08-14 22:06 | CATHPROC ---
[facility] HIS Report Study Information Study Number Scheduled Start Study Start [id number] 08/14/2017 Aug 14 2017 9:08PM Referring Institution Admit Source Facility Department 1 Emergency department [facility] [address] - [employer] Consultant Physician and Clinical Staff Initial Nima Leonard Chicken Buyerrigoberto Dalal RN, Polly Solares RN Other cathlab, cathlab Recorder Aaron Singh RCIS(BS) Chandler Tellez RCIS(BS) Procedures Performed Procedure Location (Site) Vessel Name Coronary Angiograms LCA Left Coronary Coronary Angiograms RCA Right Coronary L Heart Cath LV Gram-hand inj. LV LV Ventricle PTCA LAD Mid Left Coronary Wire insertion Fem Art (right) Femoral Art Equipment Time Cmm Programmer Description Size Mfg Part Number Used/Scraped COPILOT VALVE, BLEEDBACK [id number] 21:33 [employer] Used CONTROL *[id number] PERCLOSE, PRO GLIDE CLOSER 21:54 [employer]TIZ CRITICAL CARE FR 6 [id number] *[id number] Used DEVICE WIRE, BALANCE MIDDLEWEIGHT [id number] 21:35 [employer] 190CM Used 190CM (SAMANTHA) *[id number] TRANSDUCER, TRUWAVE [id number] 21:25 FONTAINE ROY * Used W/STOCKCOCK *[id number] INTRODUCER SET, 21:25 [employer] FR 5 [id number] *[id number] Used MICROPUNCTURE, STIFFENED [id number] *[id number] [id number] *[id number] 21:25 [employer] PACK, CCL CUSTOM * Used *[id number] 21:34 MEDTRONIC BALLOON, 2.0 X 12MM EUPHORA 12MM Used *[id number] 21:33 MEDTRONIC/AVE EBU 3.5 Z2 GUIDE CATHETER FR 6 Used *[id number] 21:34 [employer] MEDICAL 30 ELMIRA INDEFLATOR Used *[id number] 21:25 [employer] MEDICAL WIRE, 3MMJ .035 180CM 180CM Used *[id number] 21:25 NAMIC MANIFOLD, 4 PORT * Used *[id number] 21:25 NYCOMED OMNIPAQUE, 350 MG, 150ML 150ML [id number] Used [id number] 21:25 CRUZ MEDICAL BLANKET,WARM AIR CCL * Used *[id number] 21:25 TERUMO MEDICAL SHEATH, FR5 TERUMO (10CM) FR 5 Used *[id number] 21:25 TERUMO MEDICAL SHEATH, FR6 TERUMO (10CM) FR 6 Used *[id number] Equipment Model, Serial, Lot Number and Expiration Data Description Model Number Serial Number Lot Number Expiration Date BALLOON, 2.0 X 12MM EUPHORA [id number] 03-31-2019 PERCLOSE, PRO GLIDE CLOSER [id number] 02-12-2019 DEVICE History: Current Medications Medication Dosage/Unit Route Frequency Last Date/Time Taken Statins (any) Beta Corbin ASA History: Allergies Allergy Reaction MRI PRECAUTION SPINAL STIMULATOR History: Risk Factors Family History of Hypertension Dyslipidemia Previous NC Previous Heart Failure Premature CAD Yes Yes No No No Prior Valve Prior PCI Prior CABG Surgery No No No Cerebrovascular Peripheral Artery Chronic Lung On Dialysis Diabetes Diabetes Therapy Disease Disease Disease No No No Yes Yes Oral History: Symptoms/Diagnosis Selection Items Chest pain History: Stress Tests Stress or Imaging Studies Performed No History: Other Disease Selection Items HTN History: Other Current Smoker No Labs Hgb (g/dl) Hct (%) WBC (l/cumm) Platelets (thousands) 11.60-17.00 35.00-51.00 4.00-11.00 150.00-450.00 11.5 35.6 12.9 230 Glucose (mg/dl) BUN (mg/dl) Creatinine (mg/dl) BUN:Creatinine (1:x) 74.00-106.00 7.00-18.00 0.50-1.30 10.00-20.00 150 17 1.1 15.5 Na (meq/l) K (meq/l) 136.00-145.00 3.50-5.10 133 4.9 INR (PTT:PT) 0.90-1.10 1.2 Troponin I (ng/ml) CPK (u/l) CPK-MB (ng/ML) 0.02-0.05 26.00-308.00 0.50-3.60 40 292 15.5 Medication Medication Total Dose (Bolus/Oral) Medication Total Dosage/Unit 1% XYLOCAINE 20 mL FENTANYL 50 mcg HEPARIN 5000 units NTG (IC) 300 mcg PLAVIX 600 mg VERSED 1 mg Medications (Bolus/Oral) Medication Time Given Dosage/Unit Administered By Reason 1% XYLOCAINE 08/14/2017 9:22:40 PM 20 mL Nima Phan 20 mL 1% XYLOCAINE given in lab by Nima Phan in Right Groin via Subcutaneous. FENTANYL 08/14/2017 9:22:50 PM 50 mcg Reinaldo Dalal RN 50 mcg FENTANYL given in lab by Reinaldo Dalal RN in Right Antecubital via Peripheral IV. Ordered by Co Nima Balderas. VERSED 08/14/2017 9:23:13 PM 1 mg Reinaldo Dalal RN 1 mg VERSED given in lab by Reinaldo Dalal RN in Right Antecubital via Peripheral IV. Ordered by Nima Merida. HEPARIN 08/14/2017 9:32:37 PM 5000 units Polly Haines 5000 units HEPARIN given in lab by Polly Haines RN in Right Antecubital via Peripheral IV. Ordere d by Nima Phan. NTG (IC) 08/14/2017 9:41:51 PM 100 mcg Tasha-Nia Nima 100 mcg NTG (IC) given in lab by Nima Phan via Intra-coronary. NTG (IC) 08/14/2017 9:42:00 PM 100 mcg Tasha-Nia Nima 100 mcg NTG (IC) given in lab by Nima Phan via Intra-coronary. NTG (IC) 08/14/2017 9:46:09 PM 100 mcg Tasha-Nia Nima 100 mcg NTG (IC) given in lab by Nima Phan via Intra-coronary. Ordered by Nima Phan. PLAVIX 08/14/2017 9:55:02 PM 600 mg Reinaldo Dalal RN 600 mg PLAVIX given in lab by Reinaldo Dalal RN via Oral. Ordered by Nima Phan. Medication (Drip) Medication Time Given Dosage/Unit Concentration/Unit Diluent (ml) Solution IV Solutions 08/14/2017 9:08:23 PM 0 mL (IV) 500 NaCl .9 Patient arrived on IV Solutions given by [email or web address] in Right Antecubital via Peripheral IV. Pum p/Drip Flow = 20 ml/hr using NaCl .9. Ordered by Nima Phan. Initial Case Assessment Cardiovascular HR Rhythm NIBP Chest Pain 101 afib 118/77 5 Edema Present Skin color Skin None Normal Warm Dry Circulatory - Right Pulses Posterior Tibial Femoral 1 2 Scale (0,1,2,3,4,d) Circulatory - Left Pulses Posterior Tibial Femoral 1 2 Scale (0,1,2,3,4,d) Neurological State Oriented to time-place- Alert Moves all extremities person Respiration - General Respiration Rate SpO2 (%) (B/min) 15 97 Final Case Assessment Cardiovascular HR Rhythm NIBP Chest Pain 101 afib 120/84 0 Edema Present Skin color Skin None Normal Warm Dry Circulatory - Right Pulses Posterior Tibial Femoral 1 2 Scale (0,1,2,3,4,d) Circulatory - Left Pulses Posterior Tibial Femoral 1 2 Scale (0,1,2,3,4,d) Neurological State Oriented to time-place- Alert Moves all extremities person Respiration - General Respiration Rate SpO2 (%) (B/min) 15 95 Chronological Log Time Study Chronological Log 21:08:11 Patient arrived via Bed. Heparin drip DCed per md upon patient arrival. 21:08:11 Patient Name, D.O.B, / Armband Verified By R.N. 21:08:12 Consent signed by the physician and the patient and verified by the [employer] Consultant staff. 21:08:15 Pre-op and post- op instructions given; patient acknowledges understanding of instructions . 21:08:15 Verbal Stimulation=2 Physical Stimulation=2 Airway=2 Respiration=2 TOTAL=8. (0=absent, 1=l imited, 2=present) 21:08:16 Presedation assessment performed by [employer] Consultant RN. 21:08:17 Immediate Presedation assesment performed by physician. 21:08:17 Patient has been NPO for More than 6Hrs. 21:08:18 Skin Breakdown- rash left groin 21:08:20 Patient Warmer Placed on the Table. 21:08:21 Disposable Defibrillator Pads Placed On Patient. 21:08:21 Lavelle Prominences Protected 21:08:22 A # 20 IV was noted in the Antecubital (right). Grade = 0 21:08:22 A # 20 IV was noted in the Forearm (right). Grade = 0 Patient arrived on IV Solutions given by cathlab, cathlab in Right Antecubital via Peripheral IV. Pump/Drip Flow = 20 21:08:23 ml/hr using NaCl .9. Ordered by Nima Phan. 21:08:25 History and physical on the chart or being dictated. Vitals capture started with the following parameters, Patient=Adult, Interval=2 min, Initial Pr zmesnx=003 mmHg, 21:12:50 Deflation Rate=5 mmHg, Cuff placed on Left Arm 21:13:29 YE=533 bpm, WFGX=642/77 mmhg, SpO2=97.0 %, Resp=15 B/min, Pain=0, Messi=10, Mcclendon=2 Assessment: Initial Case, YQ=433 BPM, Rhythm=afib, IBJF=455/77 mmhg, Chest Pain=5, Edema=None, Color=Normal, Skin = Warm, Dry Right Pulses: Post Tib=1, Femoral=2 21:14:54 Left Pulses: Post Tib=1, Femoral=2 Neurological: State=Alert, Ox3, CULLEN Respiration: Resp=15 B/min, SpO2=97 % 21:15:22 DP=407 bpm, RCLA=325/89 mmhg, SpO2=97.0 %, Resp=16 B/min, Pain=0, Messi=10, Mcclendon=2 21:16:46 Bilateral groins prepped with 2% chlorhexidine, and draped after a 3 minute waiting time. 21:17:22 DS=103 bpm, GSNU=113/88 mmhg, SpO2=96.0 %, Resp=19 B/min, Pain=4, Messi=10, Mcclendon=2 21:19:23 ZQ=067 bpm, RAHC=302/84 mmhg, SpO2=96.0 %, Resp=16 B/min, Pain=4, Messi=10, Mcclendon=2 21:21:01 Pressure channel 1 zeroed. 21:21:22 MP=002 bpm, CVCS=391/86 mmhg, SpO2=97.0 %, Resp=15 B/min, Pain=4, Messi=10, Mcclendon=2 21:21:47 MD arrived. ::55 Contrast Scanned ::56 Immediate Presedation assesment performed by physician. Time Out. Correct patient, correct procedure, correct physician, power injector loaded, or not loaded with contrast with ::56 surgical team present. Time Out Concurred by MD and individual staff in procedure. :57 Case Start :: Verbal Stimulation=2 Physical Stimulation=2 Airway=2 Respiration=1 TOTAL=8. (0=absent, 1=li mited, 2=present) 21:22:40 20 mL 1% XYLOCAINE given in lab by Nima Phan in Right Groin via Subcutaneous. 21::50 50 mcg FENTANYL given in lab by Reinaldo Dalal RN in Right Antecubital via Peripheral IV. Ord ered by Nima Phan. 21:23:13 1 mg VERSED given in lab by Reinaldo Dalal RN in Right Antecubital via Peripheral IV. Ordered by Nima Phan. 21::23 QE=038 bpm, AESI=196/81 mmhg, SpO2=98.0 %, Resp=25 B/min, Pain=4, Messi=10, Mcclendon=2 21:24:36 Access site was Right Femoral Artery. A INTRODUCER SET, MICROPUNCTURE, STIFFENED FR 5 was advanced into the Fem Art (right) using the :40 Percutaneous technique. A SHEATH, FR6 TERUMO (10CM) FR 6 was exchanged in the Fem Art (right). This was necessary in or nessa to :25:02 accomodate a larger catheter. 21:25:24 BX=343 bpm, LDVS=591/77 mmhg, SpO2=96.0 %, Resp=15 B/min, Pain=4, Messi=10, Mcclendon=2 A JR 4.0 INFINITI CATHETER FR 5 was advanced over a wire. OMNIPAQUE, 350 MG, 150ML 150ML was us ed for :25:38 injections. 21:26:09 Reference ECG taken Recorded Pressure: LV, HR=99, Condition=Condition 1 21:27:09 (Left Ventricle) LV 154/85/90 21:27:23 GQ=034 bpm, NTHM=029/81 mmhg, SpO2=96.0 %, Resp=16 B/min, Pain=4, Messi=10, Mcclendon=2 21:27:47 The LV was manually injected with 10 cc's and visualized. OMNIPAQUE, 350 MG, 150ML 150ML us ed. Recorded Pressure: LV, Ao, HR=97, Condition=Condition 1 21:28:01 (Left Ventricle) LV 99/18/24, (Aorta) Ao 108/73/90 21:28:39 The RCA was injected and visualized at various angles. OMNIPAQUE, 350 MG, 150ML 150ML used . :29:23 EF=931 bpm, NKWY=492/75 mmhg, SpO2=96.0 %, Resp=16 B/min, Pain=0, Messi=10, Mcclendon=2 After removing the current catheter a JL 4.0 INFINITI CATHETER FR 5 was advanced over a WIRE, 3 MMJ .035 180CM :29:23 180CM. 21:31:11 The LCA was injected and visualized at various angles. OMNIPAQUE, 350 MG, 150ML 150ML used . 21:31:26 TW=052 bpm, ACVS=676/70 mmhg, SpO2=96.0 %, Resp=16 B/min, Pain=0, Messi=10, Mcclendon=2 21:31:41 Catheter was removed 5000 units HEPARIN given in lab by Polly Haines RN in Right Antecubital via Peripheral IV. Ordered by Emilie, 21:32:37 Nima. 21:33:25 GX=154 bpm, MQKF=228/67 mmhg, SpO2=96.0 %, Resp=16 B/min, Pain=4, Messi=10, Mcclendon=2 21:35:26 HD=853 bpm, LVCH=975/79 mmhg, SpO2=96.0 %, Resp=16 B/min, Pain=4, Messi=10, Mcclendon=2 21:35:30 A WIRE, BALANCE MIDDLEWEIGHT 190CM (SAMANTHA) 190CM was inserted via Fem Art (right). 21:36:52 Interventional wire has crossed the lesion A BALLOON, 2.0 X 12MM EUPHORA 12MM was inserted over WIRE, BALANCE MIDDLEWEIGHT 190CM (SAMANTHA) 19 0CM 21:36:57 via the LAD Mid. 21:37:27 HR=97 bpm, XCNM=098/74 mmhg, SpO2=96.0 %, Resp=19 B/min, Pain=0, Messi=10, Mcclendon=2 A BALLOON, 2.0 X 12MM EUPHORA 12MM over a WIRE, BALANCE MIDDLEWEIGHT 190CM (SAMANTHA) 190CM in the LAD 21:38:40 Mid was inflated using a 30 ELMIRA INDEFLATOR at 10 elmira for 10 sec. A BALLOON, 2.0 X 12MM EUPHORA 12MM over a WIRE, BALANCE MIDDLEWEIGHT 190CM (SAMANTHA) 190CM in the LAD 21:39:14 Mid was inflated using a 30 ELMIRA INDEFLATOR at 10 elmira for 15 sec. 21:39:21 NM=017 bpm, EAVX=845/80 mmhg, SpO2=97.0 %, Resp=15 B/min, Pain=0, Messi=10, Mcclendon=2 21:40:22 Balloon Removed. 21:41:26 QM=172 bpm, RAWC=335/78 mmhg, SpO2=97.0 %, Resp=15 B/min, Pain=4, Messi=10, Mcclendon=2 21:41:51 100 mcg NTG (IC) given in lab by Nima Phan via Intra-coronary. 21:42:00 100 mcg NTG (IC) given in lab by Nima Phan via Intra-coronary. 21:43:27 TQ=362 bpm, ICTZ=549/69 mmhg, SpO2=97.0 %, Resp=15 B/min, Pain=0, Messi=10, Mcclendon=2 A BALLOON, 2.0 X 12MM EUPHORA 12MM over a WIRE, BALANCE MIDDLEWEIGHT 190CM (SAMANTHA) 190CM in the LAD 21:43:37 Mid was inflated using a 30 ELMIRA INDEFLATOR at 12 elmira for 10 sec. A BALLOON, 2.0 X 12MM EUPHORA 12MM over a WIRE, BALANCE MIDDLEWEIGHT 190CM (SAMANTHA) 190CM in the LAD 21:43:51 Mid was inflated using a 30 ELMIRA INDEFLATOR at 12 elmira for 10 sec. A BALLOON, 2.0 X 12MM EUPHORA 12MM over a WIRE, BALANCE MIDDLEWEIGHT 190CM (SAMANTHA) 190CM in the LAD 21:44:10 Mid was inflated using a 30 ELMIRA INDEFLATOR at 10 elmira for 10 sec. A BALLOON, 2.0 X 12MM EUPHORA 12MM over a WIRE, BALANCE MIDDLEWEIGHT 190CM (SAMANTHA) 190CM in the LAD 21:44:13 Mid was inflated using a 30 ELMIRA INDEFLATOR at 10 elmira for 10 sec. A BALLOON, 2.0 X 12MM EUPHORA 12MM over a WIRE, BALANCE MIDDLEWEIGHT 190CM (SAMANTHA) 190CM in the LAD 21:44:21 Mid was inflated using a 30 ELMIRA INDEFLATOR at 10 elmira for 10 sec. 21:45:26 PU=742 bpm, MYMJ=195/62 mmhg, SpO2=95.0 %, Resp=23 B/min, Pain=0, Messi=10, Mcclendon=2 A BALLOON, 2.0 X 12MM EUPHORA 12MM over a WIRE, BALANCE MIDDLEWEIGHT 190CM (SAMANTHA) 190CM in the LAD 21:45:42 Mid was inflated using a 30 ELMIRA INDEFLATOR at 12 elmira for 15 sec. 21:46:09 100 mcg NTG (IC) given in lab by Nima Phan via Intra-coronary. Ordered by Nima Wilkins. 21:47:25 YO=219 bpm, LWPN=941/71 mmhg, SpO2=95.0 %, Resp=16 B/min, Pain=0, Messi=10, Mcclendon=2 21:49:26 HR=98 bpm, AZBQ=735/68 mmhg, SpO2=96.0 %, Resp=12 B/min, Pain=4, Messi=10, Mcclendon=2 21:49:59 Balloon Removed. 21:50:01 Wire removed 21:51:26 RV=751 bpm, QCFW=884/75 mmhg, SpO2=97.0 %, Resp=16 B/min, Pain=4, Messi=10, Mcclendon=2 21:52:32 Catheter was removed 21:53:10 An injection in the Fem Art (right) was made through the SHEATH, FR6 TERUMO (10CM) FR 6. 21:53:29 ZJ=980 bpm, DFFT=053/72 mmhg, SpO2=97.0 %, Resp=16 B/min, Pain=0, Messi=10, Mcclendon=2 21:54:26 PERCLOSE, PRO GLIDE CLOSER DEVICE FR 6 placement in the Fem Art (right) 21:55:02 600 mg PLAVIX given in lab by Reinaldo Dalal RN via Oral. Ordered by Nima Phan. 21:55:26 RL=229 bpm, PCPK=960/84 mmhg, SpO2=96.0 %, Resp=15 B/min, Pain=0, Messi=10, Mcclendon=2 Assessment: Final Case, PV=592 BPM, Rhythm=afib, WTTM=090/84 mmhg, Chest Pain=0, Edema=None, Color=Normal, Skin = Warm, Dry Right Pulses: Post Tib=1, Femoral=2 21:55:37 Left Pulses: Post Tib=1, Femoral=2 Neurological: State=Alert, Ox3, CULLEN Respiration: Resp=15 B/min, SpO2=95 % 21:56:06 Case End 21:56:10 No case complications noted. 21:56:10 Cine recording checked. 21:56:13 Bedside Report will be given. 21:56:16 Contrast Scanned 21:56:17 Verbal Stimulation=2 Physical Stimulation=2 Airway=2 Respiration=2 TOTAL=8. (0=absent, 1=l imited, 2=present) 21:56:26 A Left Heart Cath was performed. 21:57:27 PS=932 bpm, XXMW=150/83 mmhg, SpO2=96.0 %, Resp=16 B/min, Pain=0, Messi=10, Mcclendon=2 21:59:28 VI=545 bpm, YQNL=419/83 mmhg, SpO2=99.0 %, Resp=22 B/min, Pain=0, Messi=10, Mcclendon=2 22:00:15 Sterile dressing applied to site 22:01:27 PJ=834 bpm, OYPW=787/84 mmhg, SpO2=99.0 %, Resp=19 B/min, Pain=0, Messi=10, Mcclendon=2 22:03:18 Patient moved to stretcher 22:03:29 TA=998 bpm, TCCE=561/80 mmhg, SpO2=98.0 %, Resp=15 B/min, Pain=0, Messi=10, Mcclendon=2 22:04:02 Vitals capture stopped. End Study - Contrast Media Used In Study Contrast Total Opened (mL) Total Used (mL) Total Wasted (mL) Omnipaque 130 130 0 End Study - Maximum Contrast Load Max Contrast Load (mL) 386.4 End Study - Radiation Exposure Fluoro Time (minutes) 11.1 End Study - Patient Disposition Complications Transferred To Interventional Outcome No Telemetry Bed successful
[2017-08-14] MEDS ORDERED: SODIUM CHLOR 0.9% 1000 ML INJ 1,000 ML IV SCH ×2 (22:09)
[2017-08-14] MEDS ORDERED: ONDANSETRON HCL 4 MG/2 ML VIAL IV PUSH PRN ×2 (22:15)
[2017-08-14] MEDS ORDERED: ACETAMINOPHEN/HYDROcodone 325 MG/10 MG TAB PO PRN ×2 (22:15)
[2017-08-14] MEDS ORDERED: ACETAMINOPHEN 325 MG TAB PO PRN ×2 (22:15)
[2017-08-14] MEDS ORDERED: SODIUM CHLORIDE 0.9% FLUSH 10 ML FLUSH IV FLUSH PRN ×2 (22:15)
[2017-08-14] MEDS ORDERED: MISC INFORMATION XX ONE ×2 (22:15)
[2017-08-14] MEDS ORDERED: ATROPINE SULFATE 1 MG/ML VIAL IV PUSH PRN ×2 (22:15)
[2017-08-14] MEDS ORDERED: LACTULOSE SYRUP 20 GM/30 ML CUP PO PRN ×2 (22:45)
[2017-08-14] MEDS ORDERED: CHLORHEXIDINE GLUCONATE 2 % 1 PACK (2 CLOTHS) TOP PRN ×2 (22:45)
[2017-08-14] MEDS ORDERED: BISACODYL 10 MG SUPP RECTAL PRN ×2 (22:45)
[2017-08-14] MEDS ORDERED: SENNOSIDES 8.6 MG TAB PO PRN ×2 (22:45)
[2017-08-14] MEDS ORDERED: RESP: ALBUTEROL 2.5 MG/IPRATROPIUM 0.5 MG NEB (PRN) INH ×2 (22:45)
[2017-08-14] MEDS ORDERED: MAGNESIUM HYDROXIDE SUSP 30 ML CUP PO PRN ×2 (22:45)
[2017-08-14] MEDS ORDERED: MISCELLANEOUS NURSING INFORMATION XX SCH ×2 (22:45)
[2017-08-14] MEDS ORDERED: DEXTROSE 50% IN WATER 50 ML VIAL(D50) IV PUSH PRN (23:00)
[2017-08-14] MEDS ORDERED: GLUCAGON 1 MG/ML VIAL OTHER PRN ×2 (23:00)
[2017-08-14] MEDS ORDERED: HEPARIN SODIUM - SQ 10,000 UNITS/ML VIAL SQ SCH ×2 (23:00)
[2017-08-14] MEDS: INSULIN NovoLIN REGULAR SUPPLEMENTAL SCALE SQ SCH ×2 (23:00)
[2017-08-15] VITALS (22 sets, daily range): BP systolic 88–118; BP diastolic 61–84; PULSE 88–120; RESP 16–22; TEMP 96.9–98.4; O2SAT 93–96
[2017-08-15] MEDS ORDERED: HEPARIN SODIUM - IV 10,000 UNITS/10 ML VIAL IV PUSH PRN ×4 (01:00)
[2017-08-15] MEDS ORDERED: CARVEDILOL 3.125 MG TAB PO SCH ×6 (01:15→09:00)
[2017-08-15] MEDS: INSULIN NovoLIN REGULAR SUPPLEMENTAL SCALE SQ SCH ×12 (03:26→23:00)
[2017-08-15] MEDS: CHLORHEXIDINE GLUCONATE 2 % 1 PACK (2 CLOTHS) TOP SCH ×2 (03:37)
[2017-08-15 05:52] LABS: ALBUMIN 3.4 GM/DL (3.4-5.0); AST (GOT) 51 U/L (15-37); BICARBONATE 21.2 MEQ/L (21.0-32.0); BLOOD UREA NITROGEN 16 MG/DL (7-18); CALCIUM 8.2 MG/DL (8.5-10.1); CHLORIDE 98 MEQ/L (98-107); CREATININE 0.97 MG/DL (0.60-1.30); GLOMERULAR FILTRATION RATE 75 ML/MIN (>89); GLUCOSE,RANDOM 133 MG/DL (74-106); MAGNESIUM 1.4 MG/DL (1.5-2.5); SODIUM (NA) 130 MEQ/L (136-145)
[2017-08-15 05:53] LABS: ALT (GPT) 22 U/L (12-78)
[2017-08-15] MEDS: LEVOTHYROXINE SODIUM 25 MCG TAB PO SCH ×2 (05:56)
[2017-08-15 06:03] LABS: ALKALINE PHOSPHATASE 52 U/L (45-117); TOTAL PROTEIN 6.4 GM/DL (6.4-8.2)
[2017-08-15 06:09] LABS: AUTOMATED NEUTROPHIL # 6.3 TH/MM3 (1.8-7.7); BASOPHIL % 0.2 % (0.0-2.0); EOSINOPHIL % 0.1 % (0.0-4.0); HEMATOCRIT 32.7 % (39.0-51.0); HEMOGLOBIN 11.3 GM/DL (13.0-17.0); MEAN CELL VOLUME 87.8 FL (80.0-100.0); MEAN CORPUSCULAR HEMOGLOBIN 30.3 PG (27.0-34.0); MEAN CORPUSCULAR HGB CONC 34.5 % (32.0-36.0); MEAN PLATELET VOLUME 7.7 FL (7.0-11.0); MONO % 10.9 % (0.0-8.0); MONOCYTE # 0.9 TH/MM3 (0-0.9); NEUT % 76.8 % (16.0-70.0); PLATELET COUNT 182 TH/MM3 (150-450); RED BLOOD COUNT 3.73 MIL/MM3 (4.50-5.90); RED CELL DISTRIBUTION WIDTH 15.4 % (11.6-17.2); WHITE BLOOD COUNT 8.2 TH/MM3 (4.0-11.0)
--- NOTE | 2017-08-15 08:00 | MH ---
cc: SHABANA THOMAS M.D. DATE OF ADMISSION: 08/14/2017 DATE OF 1940 HISTORY OF PRESENT ILLNESS The patient is a 77-year-old male with a past medical history of hypertension, diabetes mellitus, hyperlipidemia, thyroid disease, cardiomyopathy with EF of 20-25%. The patient initially presented to the [facility] [place] ED was with a three-day history of shortness of breath and was complaining of heartburn. The patient is a poor historian and most of the history was obtained from the patient's . On arrival to the ER the patient was tachycardic and his EKG showed atrial fibrillation with rapid ventricular response. His initial laboratory data showed troponin greater than 40, lactic acid of 5.2 and BNP of 610. Chest x-ray in the ER showed moderate congestive failure. Other abnormal labs showed mild leukocytosis with a WBC of 12.9. In the ED he was given aspirin, Lasix, vancomycin and cefepime and placed on heparin drip. Dr. Cordova was notified by the ED and requested to transfer the patient as a STEMI Alert at 20:27. The patient was taken to the mechanical laboratory technician where he underwent angioplasty for a distal LAD occlusion. He was transferred to CPCU per mechanical laboratory technician. When seen the patient is awake, alert, lying in bed in no acute respiratory distress. He is on room air oxygen. He denies any nausea, vomiting, abdominal pain. No history of any constitutional symptoms. PAST MEDICAL HISTORY Significant for - 1. Hypertension. 2. Dyslipidemia . 3. Diabetes mellitus. 4. Chronic back pain. 5. Hypothyroidism. 6. CHF. 7. Cardiomyopathy with EF of 20-25%. PAST SURGICAL HISTORY 1. Previous morphine pump insertion. 2. Previous cholecystectomy. 3. Previous back surgery. 4. 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 ALLERGIES MRI PRECAUTIONS. FAMILY HISTORY Noncontributory. SOCIAL HISTORY Nonsmoker, nondrinker. MEDICATIONS REPORTED 1. Pravastatin. 2. Aspirin. 3. Lopressor. 4. Trazodone. 5. Xanax p.r.n. 6. Lasix. 7. Carafate. 8. Metformin. 9. Allopurinol. REVIEW OF SYSTEMS As per HPI. REVIEW OF SYSTEMS Unremarkable. PHYSICAL EXAMINATION GENERAL: A 77-year-old male lying in bed in no acute respiratory distress. VITAL SIGNS: Afebrile. Pulse of 101, blood pressure 128/71, saturation 93% on room air. HEENT: Atraumatic, normocephalic. Pupils equal, round, reactive to light and accommodation. Extraocular muscles intact. Conjunctivae pink. Nonicteric sclerae. Oral mucosa within normal. NECK: Supple. No JVD, adenopathy or thyromegaly. Trachea in the midline. CARDIOVASCULAR EXAMINATION: Tachycardiac, irregularly irregular. Normal S1-S2. No murmurs, rubs or gallops noted. PULMONARY EXAM: Bilateral air entry with a few coarse breath sounds. ABDOMEN: Soft, nontender, no distension. Positive bowel sounds. EXTREMITIES: No cyanosis, clubbing or edema. NEURO: No focal sensory deficit. LABORATORY DATA WBC 12.9, hemoglobin 11.5, hematocrit 35, platelet count of 230. Sodium of 133, potassium 4.9, chloride 98, CO2 19.7, BUN 17, creatinine 1.1, glucose 150. Lactic acid 5.2, on repeat 4.5. AST 67, ALT 23, total bilirubin 0.7. Troponin greater than 40. CK 292, CK-MB 15.5, BNP 610, albumin 3.6, INR 1.2, PT 13.8. Urinalysis negative for nitrite, leukocyte esterase. CHEST X-RAY Moderate congestive failure. EKG Atrial fibrillation with rapid ventricular response. IMPRESSION 1. Acute myocardial infarction. 2. Atrial fibrillation with rapid ventricle response. 3. CHF. 4. Cardiomyopathy with EF of 20-25% from the echo from last year. 5. Lactic acidemia. 6. Diabetes mellitus. 7. Hyperlipidemia. 8. Hypothyroidism. RECOMMENDATIONS 1. Monitor neuro status and avoid any sedatives. 2. Oxygen p.r.n. to maintain sats above 92%. 3. Bronchodilators on a p.r.n. basis q. 4 hours. 4. Status post cardiac catheterization status post cardiac cath, angioplasty performed for distal LAD occlusion, no stent placed. 5. Continue with Lipitor 10 mg q.h.s. 6. Aspirin 81 mg daily. 7. Coreg 3.125 mg b.i.d. 8. Plavix 75 mg daily. 9. Lasix 20 mg b.i.d. 10. Serial lactic acid monitoring. 11. Monitor renal function, I's and O's and electrolyte replacement as needed. 12. Heart healthy diet as ordered. 13. We will hold off on antibiotics at this time and monitor for signs of infections which include fever and WBC. Follow up on blood cultures which was performed in the ER. His nasal aspirate is negative for influenza. 14. Monitor CBC. 15. Place on sliding scale insulin with Accu-Cheks for glycemic control. 16. Continue with Synthroid 25 mcg daily. Will check a baseline TSH level. 17. No indications for GI prophylaxis. 18. DVT prophylaxis with SCDs and heparin subcu. Further recommendations will be based on his hospital course. MD CAROLINA Kevin/DAI /10:56 PM /7:31 AM
--- NOTE | 2017-08-15 08:11 | MB ---
cc: HANNAH HORTON DATE OF 1940 DATE OF CONSULTATION 08/14/2017 REASON FOR CONSULTATION Chest pain. Elevated troponin. HISTORY OF PRESENT ILLNESS 77-year-old male with history of coronary artery disease, severe LV systolic dysfunction, atrial fibrillation, followed by Dr. Tripp who presented to the emergency department in [place] with three days of worsening chest pain , burning sensation, non-radiating. In the emergency department he was found to have be in atrial fibrillation with RVR and left bundle branch block and nonspecific ST changes. The patient was admitted for rate control and to rule out ACS. Elevated cardiac markers showed negative cardiac markers x2. However, a third set of cardiac enzymes showed a troponin of 40, thus Cardiology has been consulted for further management and evaluation. The patient was going to be transferred to the [facility]; however, he started complaining of worsening chest pain for which he was transferred to the dairy lab technician of the [facility] for emergent PCI. REVIEW OF SYSTEMS Negative except for that mentioned in the HPI. PAST MEDICAL HISTORY 1. LV systolic dysfunction. 2. Atrial fibrillation. 3. CAD. 4. Gastroesophageal reflux disease. ALLERGIES No known drug allergies. PAST SURGICAL HISTORY Has a spinal stimulator. SOCIAL HISTORY Denies smoking, alcohol or substance abuse. PHYSICAL EXAMINATION VITAL SIGNS: Temperature 97, respiratory rate 101, blood pressure 125/89, O2 sat 97% room air. GENERAL: Alert and oriented x3, in no acute distress. He is hard of hearing. NECK: No JVD, no carotid bruit. HEART: Irregularly irregular. No murmurs, rubs or gallops. LUNGS: Clear to auscultation bilaterally. No wheezes or rhonchi or rales. ABDOMEN: Soft, nontender, nondistended. Positive bowel sounds. EXTREMITIES: No clubbing, cyanosis or edema. Pulses throughout. LABORATORY DATA Troponin more than 40. CBC and creatinine stable. EKG Unchanged from previous EKG shows atrial fibrillation with left bundle branch block, rapid ventricular response, nonspecific ST changes. The patient has an echocardiogram from 2016 showing depressed LV systolic function with estimated ejection fraction of 20%. No records of ischemia workup. ASSESSMENT AND PLAN 77-year-old male with known CAD, LV systolic dysfunction, who presented with a [id number] HI, troponin of 40 with ongoing chest pain. Given the patient' s ongoing chest discomfort and elevated troponins, I think it is reasonable to take him to the Cardiac Catheterization Laboratory for primary PCI. The risks, benefits and alternatives of left heart cath/PCI including but not limited to neurovascular trauma, infection, bleeding, acute kidney injury, stroke, emergent bypass surgery and have been explained to the patient. The patient understands the risks and is willing to proceed. PLAN NPO emergent for left heart cath now. Further management to be determined. Thank you. MD LEA Gomez/DAI /9:13 PM /7:57 AM LOYD
--- NOTE | 2017-08-15 08:11 | MB ---
cc: HANNAH HORTON DATE OF 1940 DATE OF CONSULTATION 08/14/2017 REASON FOR CONSULTATION Chest pain. Elevated troponin. HISTORY OF PRESENT ILLNESS 77-year-old male with history of coronary artery disease, severe LV systolic dysfunction, atrial fibrillation, followed by Dr. Tripp who presented to the emergency department in [place] with three days of worsening chest pain , burning sensation, non-radiating. In the emergency department he was found to have be in atrial fibrillation with RVR and left bundle branch block and nonspecific ST changes. The patient was admitted for rate control and to rule out ACS. Elevated cardiac markers showed negative cardiac markers x2. However, a third set of cardiac enzymes showed a troponin of 40, thus Cardiology has been consulted for further management and evaluation. The patient was going to be transferred to the [facility]; however, he started complaining of worsening chest pain for which he was transferred to the microbiology lab technician of the [facility] for emergent PCI. REVIEW OF SYSTEMS Negative except for that mentioned in the HPI. PAST MEDICAL HISTORY 1. LV systolic dysfunction. 2. Atrial fibrillation. 3. CAD. 4. Gastroesophageal reflux disease. ALLERGIES No known drug allergies. PAST SURGICAL HISTORY Has a spinal stimulator. SOCIAL HISTORY Denies smoking, alcohol or substance abuse. PHYSICAL EXAMINATION VITAL SIGNS: Temperature 97, respiratory rate 101, blood pressure 125/89, O2 sat 97% room air. GENERAL: Alert and oriented x3, in no acute distress. He is hard of hearing. NECK: No JVD, no carotid bruit. HEART: Irregularly irregular. No murmurs, rubs or gallops. LUNGS: Clear to auscultation bilaterally. No wheezes or rhonchi or rales. ABDOMEN: Soft, nontender, nondistended. Positive bowel sounds. EXTREMITIES: No clubbing, cyanosis or edema. Pulses throughout. LABORATORY DATA Troponin more than 40. CBC and creatinine stable. EKG Unchanged from previous EKG shows atrial fibrillation with left bundle branch block, rapid ventricular response, nonspecific ST changes. The patient has an echocardiogram from 2016 showing depressed LV systolic function with estimated ejection fraction of 20%. No records of ischemia workup. ASSESSMENT AND PLAN 77-year-old male with known CAD, LV systolic dysfunction, who presented with a [id number] CA, troponin of 40 with ongoing chest pain. Given the patient' s ongoing chest discomfort and elevated troponins, I think it is reasonable to take him to the Cardiac Catheterization Laboratory for primary PCI. The risks, benefits and alternatives of left heart cath/PCI including but not limited to neurovascular trauma, infection, bleeding, acute kidney injury, stroke, emergent bypass surgery and have been explained to the patient. The patient understands the risks and is willing to proceed. PLAN NPO emergent for left heart cath now. Further management to be determined. Thank you. MD LEA Gomez/DAI /9:13 PM /7:57 AM LOYD
--- NOTE | 2017-08-15 08:11 | MB ---
cc: HANNAH HORTON DATE OF 1940 DATE OF CONSULTATION 08/14/2017 REASON FOR CONSULTATION Chest pain. Elevated troponin. HISTORY OF PRESENT ILLNESS 77-year-old male with history of coronary artery disease, severe LV systolic dysfunction, atrial fibrillation, followed by Dr. Tripp who presented to the emergency department in [place] with three days of worsening chest pain , burning sensation, non-radiating. In the emergency department he was found to have be in atrial fibrillation with RVR and left bundle branch block and nonspecific ST changes. The patient was admitted for rate control and to rule out ACS. Elevated cardiac markers showed negative cardiac markers x2. However, a third set of cardiac enzymes showed a troponin of 40, thus Cardiology has been consulted for further management and evaluation. The patient was going to be transferred to the [facility]; however, he started complaining of worsening chest pain for which he was transferred to the labor relations teacher of the [facility] for emergent PCI. REVIEW OF SYSTEMS Negative except for that mentioned in the HPI. PAST MEDICAL HISTORY 1. LV systolic dysfunction. 2. Atrial fibrillation. 3. CAD. 4. Gastroesophageal reflux disease. ALLERGIES No known drug allergies. PAST SURGICAL HISTORY Has a spinal stimulator. SOCIAL HISTORY Denies smoking, alcohol or substance abuse. PHYSICAL EXAMINATION VITAL SIGNS: Temperature 97, respiratory rate 101, blood pressure 125/89, O2 sat 97% room air. GENERAL: Alert and oriented x3, in no acute distress. He is hard of hearing. NECK: No JVD, no carotid bruit. HEART: Irregularly irregular. No murmurs, rubs or gallops. LUNGS: Clear to auscultation bilaterally. No wheezes or rhonchi or rales. ABDOMEN: Soft, nontender, nondistended. Positive bowel sounds. EXTREMITIES: No clubbing, cyanosis or edema. Pulses throughout. LABORATORY DATA Troponin more than 40. CBC and creatinine stable. EKG Unchanged from previous EKG shows atrial fibrillation with left bundle branch block, rapid ventricular response, nonspecific ST changes. The patient has an echocardiogram from 2016 showing depressed LV systolic function with estimated ejection fraction of 20%. No records of ischemia workup. ASSESSMENT AND PLAN 77-year-old male with known CAD, LV systolic dysfunction, who presented with a [id number] NH, troponin of 40 with ongoing chest pain. Given the patient' s ongoing chest discomfort and elevated troponins, I think it is reasonable to take him to the Cardiac Catheterization Laboratory for primary PCI. The risks, benefits and alternatives of left heart cath/PCI including but not limited to neurovascular trauma, infection, bleeding, acute kidney injury, stroke, emergent bypass surgery and have been explained to the patient. The patient understands the risks and is willing to proceed. PLAN NPO emergent for left heart cath now. Further management to be determined. Thank you. MD LEA Gomez/DAI /9:13 PM /7:57 AM LOYD
[2017-08-15 08:14] LABS: CHOLESTEROL/ HDL RATIO 1.96 RATIO; HDL CHOLESTEROL 52.3 MG/DL (40.0-60.0)
--- NOTE | 2017-08-15 08:28 | MA ---
cc: SOLHANNAH DATE 08/14/2017 DATE OF 06/29/1942 PROCEDURE PERFORMED 1. Left heart catheterization 2. Selective right and left coronary angiography 3. Left ventriculogram 4. Successful POBA to the distal LAD. 5. Right common femoral artery angiography PREPROCEDURE DIAGNOSIS [id number] [place] with active chest pain. APPROACH Right femoral PROCEDURE DESCRIPTION Consent signed. The patient was brought into the cardiac supervisor laboratory animal facility in a fasting state in an emergent state. The right groin was prepped and draped in a sterile fashion. Using 1% lidocaine for local anesthesia and a micropuncture kit, a 6-[place] sheath was inserted into the right common femoral artery. Versed and Fentanyl was given for moderate sedation. Then the right coronary angiography was performed to confirm position of the sheath, then selective right and left coronary angiography was performed with a JR-4 and JL-4 diagnostic catheters. The JR-4 diagnostic catheter was introduced into the left ventricle over a wire and it was followed by pressure recordings left ventricular and pullback. I identified a culprit lesion of the non-STEMI which was in the distal LAD. The vessels was small measuring less than 2mm and not amendable for PCI, thus we POBA. The left main was engaged with an EBU 3.5 guide, IV heparin was given for anticoagulation and the LAD was wired with a BMW wire which was anchored distally in the LAD. This was followed by POBA to the distal LAD with a 2.0 x 15 balloon to nominal atmospheres. Final angiographic views revealed good perfusion of the vessel, with RYAN 3. lntracoronary nitroglycerin given and the vessel size remained small. Final angiographic views revealed RYAN-III flow. No signs of dissection or perforation. The patient is chest pain-free. The procedure was concluded. The right groin access site was closed with a Perclose device. LEFT VENTRICULOGRAPHY LEFT VENTRICLE The left ventricular pressure was 99/80 with an LVEDP of 24.The aortic pressure was 108/73 with a mean of 98. There was no gradient upon pullback the left ventricle to the aorta. Left ventriculogram revealed an ejection fraction of 20% with globalhypokinesis which is known. The patient has a history of a nonischemic cardiomyopathy. ANGIOGRAPHY RIGHT CORONARY ARTERY: The right coronary artery is a dominant vessel giving off the PDA. It has minimal luminal irregularities throughout. It has an ostial 40% lesion and mild calcification. It also has a 30% lesion on its mid body and a 10% lesion distally. LEFT MAIN: The left main is patent with RYAN-III flow, nonobstructive coronary artery disease and the left main is giving a circumflex artery, A small ramus vessel and the LAD. LAD: The LAD is a transapical vessel giving off a big first diagonal vessel which is patent and bifurcates and has RYAN-III flow. The LAD is 100% occluded distally after the third septal vessel. LEFT CIRCUMFLEX: The left circumflex artery is patent with minimal luminal irregularities throughout, however, no significant obstruction is giving up to OM vessels which are patent with RYAN-III flow and nonobstructive coronary artery disease. The ramus vessel is small and patent. CONCLUSION 1. Successful POBA to the distal LAD. No stents were placed giving a small- caliber vessel. 2. Elevated LVEDP 3. Severe LV systolic dysfunction with estimated ejection fraction of 20-25%. The patient has a known history of nonischemic cardiomyopathy. RECOMMENDATIONS - Admit to Coronary Step Down Unit - Continue aggressive medical management for secondary prevention of CAD. - Start aspirin and Plavix, as well as optimization of medical therapy for systolic heart failure. The patient should be on Coreg, JUAN inhibitor, statin and long-acting nitrates. - LifeVest upon discharge. MD LEA Gomez/BHAVANA /10:02 PM /8:12 AM LOYD
--- NOTE | 2017-08-15 08:28 | MA ---
cc: SOLHANNAH DATE 08/14/2017 DATE OF 06/29/1942 PROCEDURE PERFORMED 1. Left heart catheterization 2. Selective right and left coronary angiography 3. Left ventriculogram 4. Successful POBA to the distal LAD. 5. Right common femoral artery angiography PREPROCEDURE DIAGNOSIS [id number] [place] with active chest pain. APPROACH Right femoral PROCEDURE DESCRIPTION Consent signed. The patient was brought into the cardiac laborer beam house in a fasting state in an emergent state. The right groin was prepped and draped in a sterile fashion. Using 1% lidocaine for local anesthesia and a micropuncture kit, a 6-[place]altese sheath was inserted into the right common femoral artery. Versed and Fentanyl was given for moderate sedation. Then the right coronary angiography was performed to confirm position of the sheath, then selective right and left coronary angiography was performed with a JR-4 and JL-4 diagnostic catheters. The JR-4 diagnostic catheter was introduced into the left ventricle over a wire and it was followed by pressure recordings left ventricular and pullback. I identified a culprit lesion of the non-STEMI which was in the distal LAD. The vessels was small measuring less than 2mm and not amendable for PCI, thus we POBA. The left main was engaged with an EBU 3.5 guide, IV heparin was given for anticoagulation and the LAD was wired with a BMW wire which was anchored distally in the LAD. This was followed by POBA to the distal LAD with a 2.0 x 15 balloon to nominal atmospheres. Final angiographic views revealed good perfusion of the vessel, with RYAN 3. lntracoronary nitroglycerin given and the vessel size remained small. Final angiographic views revealed RYAN-III flow. No signs of dissection or perforation. The patient is chest pain-free. The procedure was concluded. The right groin access site was closed with a Perclose device. LEFT VENTRICULOGRAPHY LEFT VENTRICLE The left ventricular pressure was 99/80 with an LVEDP of 24.The aortic pressure was 108/73 with a mean of 98. There was no gradient upon pullback the left ventricle to the aorta. Left ventriculogram revealed an ejection fraction of 20% with globalhypokinesis which is known. The patient has a history of a nonischemic cardiomyopathy. ANGIOGRAPHY RIGHT CORONARY ARTERY: The right coronary artery is a dominant vessel giving off the PDA. It has minimal luminal irregularities throughout. It has an ostial 40% lesion and mild calcification. It also has a 30% lesion on its mid body and a 10% lesion distally. LEFT MAIN: The left main is patent with RYAN-III flow, nonobstructive coronary artery disease and the left main is giving a circumflex artery, A small ramus vessel and the LAD. LAD: The LAD is a transapical vessel giving off a big first diagonal vessel which is patent and bifurcates and has RYAN-III flow. The LAD is 100% occluded distally after the third septal vessel. LEFT CIRCUMFLEX: The left circumflex artery is patent with minimal luminal irregularities throughout, however, no significant obstruction is giving up to OM vessels which are patent with RYAN-III flow and nonobstructive coronary artery disease. The ramus vessel is small and patent. CONCLUSION 1. Successful POBA to the distal LAD. No stents were placed giving a small- caliber vessel. 2. Elevated LVEDP 3. Severe LV systolic dysfunction with estimated ejection fraction of 20-25%. The patient has a known history of nonischemic cardiomyopathy. RECOMMENDATIONS - Admit to Coronary Step Down Unit - Continue aggressive medical management for secondary prevention of CAD. - Start aspirin and Plavix, as well as optimization of medical therapy for systolic heart failure. The patient should be on Coreg, JUAN inhibitor, statin and long-acting nitrates. - LifeVest upon discharge. MD LEA Gomez/BHAVANA /10:02 PM /8:12 AM LOYD
--- NOTE | 2017-08-15 08:28 | MA ---
cc: SOLHANNAH DATE 08/14/2017 DATE OF 06/29/1942 PROCEDURE PERFORMED 1. Left heart catheterization 2. Selective right and left coronary angiography 3. Left ventriculogram 4. Successful POBA to the distal LAD. 5. Right common femoral artery angiography PREPROCEDURE DIAGNOSIS [id number] [place] with active chest pain. APPROACH Right femoral PROCEDURE DESCRIPTION Consent signed. The patient was brought into the cardiac paint laboratory technician in a fasting state in an emergent state. The right groin was prepped and draped in a sterile fashion. Using 1% lidocaine for local anesthesia and a micropuncture kit, a 6-[place] sheath was inserted into the right common femoral artery. Versed and Fentanyl was given for moderate sedation. Then the right coronary angiography was performed to confirm position of the sheath, then selective right and left coronary angiography was performed with a JR-4 and JL-4 diagnostic catheters. The JR-4 diagnostic catheter was introduced into the left ventricle over a wire and it was followed by pressure recordings left ventricular and pullback. I identified a culprit lesion of the non-STEMI which was in the distal LAD. The vessels was small measuring less than 2mm and not amendable for PCI, thus we POBA. The left main was engaged with an EBU 3.5 guide, IV heparin was given for anticoagulation and the LAD was wired with a BMW wire which was anchored distally in the LAD. This was followed by POBA to the distal LAD with a 2.0 x 15 balloon to nominal atmospheres. Final angiographic views revealed good perfusion of the vessel, with RYAN 3. lntracoronary nitroglycerin given and the vessel size remained small. Final angiographic views revealed RYAN-III flow. No signs of dissection or perforation. The patient is chest pain-free. The procedure was concluded. The right groin access site was closed with a Perclose device. LEFT VENTRICULOGRAPHY LEFT VENTRICLE The left ventricular pressure was 99/80 with an LVEDP of 24.The aortic pressure was 108/73 with a mean of 98. There was no gradient upon pullback the left ventricle to the aorta. Left ventriculogram revealed an ejection fraction of 20% with globalhypokinesis which is known. The patient has a history of a nonischemic cardiomyopathy. ANGIOGRAPHY RIGHT CORONARY ARTERY: The right coronary artery is a dominant vessel giving off the PDA. It has minimal luminal irregularities throughout. It has an ostial 40% lesion and mild calcification. It also has a 30% lesion on its mid body and a 10% lesion distally. LEFT MAIN: The left main is patent with RYAN-III flow, nonobstructive coronary artery disease and the left main is giving a circumflex artery, A small ramus vessel and the LAD. LAD: The LAD is a transapical vessel giving off a big first diagonal vessel which is patent and bifurcates and has RYAN-III flow. The LAD is 100% occluded distally after the third septal vessel. LEFT CIRCUMFLEX: The left circumflex artery is patent with minimal luminal irregularities throughout, however, no significant obstruction is giving up to OM vessels which are patent with RYAN-III flow and nonobstructive coronary artery disease. The ramus vessel is small and patent. CONCLUSION 1. Successful POBA to the distal LAD. No stents were placed giving a small- caliber vessel. 2. Elevated LVEDP 3. Severe LV systolic dysfunction with estimated ejection fraction of 20-25%. The patient has a known history of nonischemic cardiomyopathy. RECOMMENDATIONS - Admit to Coronary Step Down Unit - Continue aggressive medical management for secondary prevention of CAD. - Start aspirin and Plavix, as well as optimization of medical therapy for systolic heart failure. The patient should be on Coreg, JUAN inhibitor, statin and long-acting nitrates. - LifeVest upon discharge. MD LEA Gomez/BHAVANA /10:02 PM /8:12 AM LOYD
[2017-08-15] MEDS: DICYCLOMINE HCL 20 MG TAB PO SCH ×8 (08:35→22:45)
[2017-08-15] MEDS: SUCRALFATE 1 GM TAB PO SCH ×6 (08:35→18:47)
[2017-08-15] MEDS: ASPIRIN 81 MG CHEW TAB PO SCH ×2 (08:36)
[2017-08-15] MEDS: CLOPIDOGREL 75 MG TAB PO SCH ×2 (08:36)
[2017-08-15] MEDS: DOCUSATE SODIUM 50 MG/SENNA 8.6 MG TAB PO SCH ×4 (08:36→21:12)
[2017-08-15] MEDS: MAGNESIUM OXIDE 400 MG TAB PO SCH ×4 (08:37→21:12)
[2017-08-15] MEDS: FUROSEMIDE 20 MG TAB PO SCH ×4 (08:37→21:13)
[2017-08-15] MEDS: POTASSIUM CHLORIDE 10 MEQ CAP PO SCH ×2 (08:38)
[2017-08-15] MEDS: CHOLECALCIFEROL (VIT D3) 1000 UNIT TAB PO SCH ×2 (08:38)
[2017-08-15] MEDS: PANTOPRAZOLE SOD 40 MG DELAYED RELEASE TAB PO SCH ×2 (08:39)
[2017-08-15] MEDS ORDERED: IOHEXOL 350 MG/ML 100 ML BTL (for Cath Lab) OTHER ONE ×2 (08:43)
[2017-08-15] MEDS ORDERED: IOHEXOL 350 MG/ML 50 ML BTL (for Cath Lab) OTHER ONE ×2 (08:43)
[2017-08-15] MEDS: HEPARIN SODIUM - SQ 10,000 UNITS/ML VIAL SQ SCH ×4 (08:52→21:14)
[2017-08-15] MEDS ORDERED: SODIUM CHLORIDE 0.9% FLUSH 10 ML FLUSH IV FLUSH SCH ×2 (09:00)
[2017-08-15] MEDS ORDERED: METOPROLOL TARTRATE 25 MG TAB PO SCH ×2 (09:00)
[2017-08-15] MEDS ORDERED: NON-FORMULARY DRUG (Krill Oil 1,000 MG) PO SCH ×2 (09:00)
--- NOTE | 2017-08-15 09:00 | PD.CARD.PN ---
Subjective Subjective Remarks no complaints no overnight events s/p POBA to distal LAD Mandaeism (No blood transfusions) Objective Medications Current Medications Medications (Trade) Dose Ordered Sig/Sukhjinder Route Start Time Stop Time Status Last Admin Nitroglycerin/ Dextrose 250 ml @ 1.5 mls/hr TITRATE PRN IV 08/14/17 20:00 08/14/17 20:26 (NS Flush) 2 ml UNSCH PRN IV FLUSH 08/14/17 22:15 (Tylenol) 325 mg Q4H PRN PO 08/14/17 22:15 (Aspirin Chew) 81 mg DAILY PO 08/15/17 09:00 08/15/17 08:36 (Plavix) 75 mg DAILY PO 08/15/17 09:00 08/15/17 08:36 (Atropine Inj) 0.5 mg UNSCH PRN IV PUSH 08/14/17 22:15 (Zofran Inj) 4 mg Q4H PRN IV PUSH 08/14/17 22:15 (Lipitor) 10 mg HS PO 08/15/17 21:00 (Vitamin D3) 2,000 units DAILY PO 08/15/17 09:00 08/15/17 08:38 (Bentyl) 20 mg QID PO 08/15/17 09:00 08/15/17 08:35 (Lasix) 20 mg BID PO 08/15/17 09:00 08/15/17 08:37 ([place] 10-325 Mg) 1 tab Q6H PRN PO 08/14/17 22:15 08/15/17 01:38 (Synthroid) 25 mcg DAILY@0600 PO 08/15/17 06:00 08/15/17 05:56 (Protonix) 40 mg DAILY PO 08/15/17 09:00 08/15/17 08:39 (KCl) 10 meq DAILY PO 08/15/17 09:00 08/15/17 08:38 (Pravachol) 40 mg HS PO 08/15/17 21:00 (Carafate) 1 gm TID PO 08/15/17 09:00 08/15/17 08:35 (Hytrin) 2 mg HS PO 08/15/17 21:00 (Mag-Ox) 400 mg BID PO 08/15/17 09:00 08/15/17 08:37 (Desyrel) 150 mg HS PO 08/15/17 21:00 (Duoneb Neb) 1 ampule Q4HR NEB PRN INH 08/14/17 22:45 Miscellaneous Information 1 Q361D XX 08/14/17 22:45 (Chlorhexidine 2% Cloth) 3 pack Taper DAILY@04 TOP 08/15/17 04:00 08/11/18 03:59 (Chlorhexidine 2% Cloth) 3 pack UNSCH PRN TOP 08/14/17 22:45 (Katie-Colace) 1 tab BID PO 08/15/17 09:00 08/15/17 08:36 (Milk Of Magnesia Liq) 30 ml Q12H PRN PO 08/14/17 22:45 (Senokot) 17.2 mg Q12H PRN PO 08/14/17 22:45 (Dulcolax Supp) 10 mg DAILY PRN RECTAL 08/14/17 22:45 (Lactulose Liq) 30 ml DAILY PRN PO 08/14/17 22:45 (D50w (Vial) Inj) 50 ml UNSCH PRN IV PUSH 08/14/17 23:00 (Glucagon Inj) 1 mg UNSCH PRN OTHER 08/14/17 23:00 (NovoLIN R SUPPLEMENTAL SCALE) 1 Q4H SQ 08/14/17 23:00 08/15/17 03:26 (Heparin Inj) 5,000 units Q12H SQ 08/15/17 08:00 08/15/17 08:52 (Coreg) 3.125 mg BID PO 08/15/17 09:00 08/15/17 01:39 Vital Signs / I&O Vital Signs Date Time Temp Pulse Resp B/P (MAP) Pulse Ox O2 Delivery O2 Flow Rate FiO2 08/15/17 06:17 104 08/15/17 05:13 101 08/15/17 04:05 98 08/15/17 03:13 97.7 107 16 118/84 (95) 96 08/15/17 02:37 18 08/14/17 23:00 99 08/14/17 22:30 98.2 116 16 128/71 (90) 93 08/14/17 20:49 08/14/17 20:26 101 109/70 08/14/17 20:17 118 18 109/70 (83) 94 Nasal Cannula 2.00 08/14/17 19:57 120 18 118/76 (90) 93 Nasal Cannula 2.00 08/14/17 19:57 120 93 Nasal Cannula 2.00 08/14/17 18:13 85 16 112/71 (85) 94 Nasal Cannula 2.00 08/14/17 17:33 16 94 Nasal Cannula 2.00 08/14/17 17:31 16 94 Nasal Cannula 2.00 08/14/17 17:05 98.2 120 16 121/73 (89) 92 I/O 08/14/17 08/14/17 08/14/17 08/15/17 08/15/17 08/15/17 07:00 15:00 23:00 07:00 15:00 23:00 Intake Total 1250 ml 480 ml Output Total 400 ml 525 ml Balance 850 ml -45 ml Intake Oral 480 ml IV Total 1250 ml Output Urine Total 400 ml 525 ml Physical Exam GENERAL: Well-nourished, well-developed patient. SKIN: Warm and dry. HEAD: Normocephalic. EYES: No scleral icterus. No injection or drainage. NECK: Supple, trachea midline. No JVD or lymphadenopathy. CARDIOVASCULAR: Regular rate and rhythm without murmurs, gallops, or rubs. RESPIRATORY: Breath sounds equal bilaterally. No accessory muscle use. GASTROINTESTINAL: Abdomen soft, non-tender, nondistended. EXTREMITIES: No cyanosis, or edema. NEUROLOGICAL: Awake, alert, and oriented x 3. Non-focal. Laboratory Laboratory Tests Test 08/14/17 17:40 08/14/17 18:53 08/14/17 20:03 08/14/17 23:18 White Blood Count 12.9 TH/MM3 Red Blood Count 4.07 MIL/MM3 Hemoglobin 11.5 GM/DL Hematocrit 35.6 % Mean Corpuscular Volume 87.4 FL Mean Corpuscular Hemoglobin 28.3 PG Mean Corpuscular Hemoglobin Concent 32.4 % Red Cell Distribution Width 14.5 % Platelet Count 230 TH/MM3 Mean Platelet Volume 7.6 FL Neutrophils (%) (Auto) 88.9 % Lymphocytes (%) (Auto) 4.4 % Monocytes (%) (Auto) 6.2 % Eosinophils (%) (Auto) 0.2 % Basophils (%) (Auto) 0.3 % Neutrophils # (Auto) 11.5 TH/MM3 Lymphocytes # (Auto) 0.6 TH/MM3 Monocytes # (Auto) 0.8 TH/MM3 Eosinophils # (Auto) 0.0 TH/MM3 Basophils # (Auto) 0.0 TH/MM3 CBC Comment DIFF FINAL Differential Comment Prothrombin Time 13.8 SEC Prothromb Time International Ratio 1.2 RATIO Activated Partial Thromboplast Time 27.5 SEC Blood Urea Nitrogen 17 MG/DL Creatinine 1.10 MG/DL Random Glucose 150 MG/DL Total Protein 6.9 GM/DL Albumin 3.6 GM/DL Calcium Level 8.4 MG/DL Phosphorus Level 3.3 MG/DL Magnesium Level 1.4 MG/DL Alkaline Phosphatase 61 U/L Aspartate Amino Transf (AST/SGOT) 67 U/L Alanine Aminotransferase (ALT/SGPT) 23 U/L Total Bilirubin 0.7 MG/DL Sodium Level 133 MEQ/L Potassium Level 4.9 MEQ/L Chloride Level 98 MEQ/L Carbon Dioxide Level 19.7 MEQ/L Anion Gap 15 MEQ/L Estimat Glomerular Filtration Rate 65 ML/MIN Lactic Acid Level 5.2 mmol/L 4.5 mmol/L 3.4 mmol/L Total Creatine Kinase 292 U/L Creatine Kinase MB 15.5 NG/ML Troponin I GREATER THAN 40.00 NG/ML B-Type Natriuretic Peptide 610 PG/ML Urine Color YELLOW Urine Turbidity CLEAR Urine pH 5.5 Urine Specific [place] 1.010 Urine Protein NEG mg/dL Urine Glucose (UA) NEG mg/dL Urine Ketones 15 mg/dL Urine Occult Blood NEG Urine Nitrite NEG Urine Bilirubin NEG Urine Leukocyte Esterase NEG Urine WBC 0-2 /hpf Urine Squamous Epithelial Cells 0-5 /hpf Microscopic Urinalysis Comment CULT NOT INDICATED Test 08/15/17 05:08 08/15/17 08:20 White Blood Count 8.2 TH/MM3 Red Blood Count 3.73 MIL/MM3 Hemoglobin 11.3 GM/DL Hematocrit 32.7 % Mean Corpuscular Volume 87.8 FL Mean Corpuscular Hemoglobin 30.3 PG Mean Corpuscular Hemoglobin Concent 34.5 % Red Cell Distribution Width 15.4 % Platelet Count 182 TH/MM3 Mean Platelet Volume 7.7 FL Neutrophils (%) (Auto) 76.8 % Lymphocytes (%) (Auto) 12.0 % Monocytes (%) (Auto) 10.9 % Eosinophils (%) (Auto) 0.1 % Basophils (%) (Auto) 0.2 % Neutrophils # (Auto) 6.3 TH/MM3 Lymphocytes # (Auto) 1.0 TH/MM3 Monocytes # (Auto) 0.9 TH/MM3 Eosinophils # (Auto) 0.0 TH/MM3 Basophils # (Auto) 0.0 TH/MM3 CBC Comment DIFF FINAL Differential Comment Blood Urea Nitrogen 16 MG/DL Creatinine 0.97 MG/DL Random Glucose 133 MG/DL Total Protein 6.4 GM/DL Albumin 3.4 GM/DL Calcium Level 8.2 MG/DL Phosphorus Level 4.0 MG/DL Magnesium Level 1.4 MG/DL Alkaline Phosphatase 52 U/L Aspartate Amino Transf (AST/SGOT) 51 U/L Alanine Aminotransferase (ALT/SGPT) 22 U/L Total Bilirubin 1.0 MG/DL Sodium Level 130 MEQ/L Potassium Level 4.6 MEQ/L Chloride Level 98 MEQ/L Carbon Dioxide Level 21.2 MEQ/L Anion Gap 11 MEQ/L Estimat Glomerular Filtration Rate 75 ML/MIN Lactic Acid Level 2.9 mmol/L Triglycerides Level 57 MG/DL Cholesterol Level 103 MG/DL LDL Cholesterol 39 MG/DL HDL Cholesterol 52.3 MG/DL Cholesterol/HDL Ratio 1.96 RATIO Thyroid Stimulating Hormone 3rd Gen 1.540 uIU/ML Imaging Last 24 hours Impressions Chest X-Ray 08/14/17 1715 Signed Impressions: Service Date/Time: Monday, August 14, 2017 17:27 - CONCLUSION: Spinal stimulator Moderate congestive failure. Esdras Bermeo MD FACR Assessment and Plan Problem List: (1) Myocardial infarction ICD Codes: I21.9 - Acute myocardial infarction, unspecified Status: Acute Plan: s/p POBA to distal LAD Hx of Nonischemic CMP with EF ~25% Cont ASA, Plavix, Coreg, ACEi, Statin, Imdur PT Cardiac rehab LifeVest upon d/c F/u with Dr. Tripp upon discharge (2) CHF (congestive heart failure) ICD Codes: I50.9 - Heart failure, unspecified Status: Acute (3) Atrial fibrillation with RVR ICD Codes: I48.91 - Unspecified atrial fibrillation Status: Acute Cordova-Nima Kramer MD Aug 15, 2017 09:00
[2017-08-15] MEDS: CARVEDILOL 3.125 MG TAB PO SCH ×4 (10:00→21:13)
--- NOTE | 2017-08-15 11:09 | HHI.PR ---
Subjective Remarks This is a pleasant 77 y/o male with Hypertension, DM II, Hyperlipidemia, thyroid disease, Cardiomyopathy with EF 20-25% who consulted at [place] [facility] wit Shortness of breath, BNP 610, Chest x-ray in the ER showed moderate congestive failure, with Diagnosis of STEMI was transferred to Cardiac Cath. The patient was already seen by instructional technology specialist for today, bu I was asked to continue his management for discharge once he is ready from transfer specialist standpoint the patient has shortness of breath, seen in his bedroom in the presence of nurse and his Relative, recommended to get LiveVest and Cardiac Rehab on Discharge. my last communication with the floor was at 16:13 and he doesn't has the LiveVest also the patient complaint he is been feeling Short of breath I explained his Ejection Fraction os low there's no signs of acute decompensation, will follow after Life Vest in place for discharge. Objective Vital Signs Date Time Temp Pulse Resp B/P (MAP) Pulse Ox O2 Delivery O2 Flow Rate FiO2 08/15/17 07:15 97.5 98 16 100/68 (79) 96 08/15/17 06:17 104 08/15/17 05:13 101 08/15/17 04:05 98 08/15/17 03:13 97.7 107 16 118/84 (95) 96 08/15/17 02:37 18 08/14/17 23:00 99 08/14/17 22:30 98.2 116 16 128/71 (90) 93 08/14/17 20:49 08/14/17 20:26 101 109/70 08/14/17 20:17 118 18 109/70 (83) 94 Nasal Cannula 2.00 08/14/17 19:57 120 18 118/76 (90) 93 Nasal Cannula 2.00 08/14/17 19:57 120 93 Nasal Cannula 2.00 08/14/17 18:13 85 16 112/71 (85) 94 Nasal Cannula 2.00 08/14/17 17:33 16 94 Nasal Cannula 2.00 08/14/17 17:31 16 94 Nasal Cannula 2.00 08/14/17 17:05 98.2 120 16 121/73 (89) 92 I/O 08/14/17 08/14/17 08/14/17 08/15/17 08/15/17 08/15/17 07:00 15:00 23:00 07:00 15:00 23:00 Intake Total 1250 ml 480 ml Output Total 400 ml 525 ml Balance 850 ml -45 ml Intake Oral 480 ml IV Total 1250 ml Output Urine Total 400 ml 525 ml Result Diagram: 08/15/17 0508 08/15/17 0508 Imaging Last Impressions Chest X-Ray 08/14/17 1715 Signed Impressions: Service Date/Time: Monday, August 14, 2017 17:27 - CONCLUSION: Spinal stimulator Moderate congestive failure. Esdras Bermeo MD FACR Procedures Cardiac Catheterization Other Results Laboratory Tests Test 08/14/17 17:40 08/14/17 18:53 08/15/17 05:08 08/15/17 08:20 Prothrombin Time 13.8 SEC Prothromb Time International Ratio 1.2 RATIO Total Creatine Kinase 292 U/L Creatine Kinase MB 15.5 NG/ML Troponin I GREATER THAN 40.00 NG/ML B-Type Natriuretic Peptide 610 PG/ML Urine Color YELLOW Urine Turbidity CLEAR Urine pH 5.5 Urine Specific [place] 1.010 Urine Protein NEG mg/dL Urine Glucose (UA) NEG mg/dL Urine Ketones 15 mg/dL Urine Occult Blood NEG Urine Nitrite NEG Urine Bilirubin NEG Urine Leukocyte Esterase NEG Urine WBC 0-2 /hpf Urine Squamous Epithelial Cells 0-5 /hpf Microscopic Urinalysis Comment CULT NOT INDICATED White Blood Count 8.2 TH/MM3 Red Blood Count 3.73 MIL/MM3 Hemoglobin 11.3 GM/DL Hematocrit 32.7 % Mean Corpuscular Volume 87.8 FL Mean Corpuscular Hemoglobin 30.3 PG Mean Corpuscular Hemoglobin Concent 34.5 % Red Cell Distribution Width 15.4 % Platelet Count 182 TH/MM3 Mean Platelet Volume 7.7 FL Neutrophils (%) (Auto) 76.8 % Lymphocytes (%) (Auto) 12.0 % Monocytes (%) (Auto) 10.9 % Eosinophils (%) (Auto) 0.1 % Basophils (%) (Auto) 0.2 % Neutrophils # (Auto) 6.3 TH/MM3 Lymphocytes # (Auto) 1.0 TH/MM3 Monocytes # (Auto) 0.9 TH/MM3 Eosinophils # (Auto) 0.0 TH/MM3 Basophils # (Auto) 0.0 TH/MM3 CBC Comment DIFF FINAL Differential Comment Blood Urea Nitrogen 16 MG/DL Creatinine 0.97 MG/DL Random Glucose 133 MG/DL Total Protein 6.4 GM/DL Albumin 3.4 GM/DL Calcium Level 8.2 MG/DL Phosphorus Level 4.0 MG/DL Magnesium Level 1.4 MG/DL Alkaline Phosphatase 52 U/L Aspartate Amino Transf (AST/SGOT) 51 U/L Alanine Aminotransferase (ALT/SGPT) 22 U/L Total Bilirubin 1.0 MG/DL Sodium Level 130 MEQ/L Potassium Level 4.6 MEQ/L Chloride Level 98 MEQ/L Carbon Dioxide Level 21.2 MEQ/L Anion Gap 11 MEQ/L Estimat Glomerular Filtration Rate 75 ML/MIN Lactic Acid Level 2.9 mmol/L Triglycerides Level 57 MG/DL Cholesterol Level 103 MG/DL LDL Cholesterol 39 MG/DL HDL Cholesterol 52.3 MG/DL Cholesterol/HDL Ratio 1.96 RATIO Thyroid Stimulating Hormone 3rd Gen 1.540 uIU/ML Activated Partial Thromboplast Time 31.0 SEC Objective Remarks GENERAL: Mild to Moderate Respiratory distress. HEENT: Atraumatic, normocephalic. NECK: Supple. No JVD, adenopathy or thyromegaly. Trachea in the midline. CARDIOVASCULAR EXAMINATION: Irregular rate and rhythm. PULMONARY EXAM: Decreased breath sounds but no wheezing or crackles. ABDOMEN: Soft, nontender, no distension. Positive bowel sounds. EXTREMITIES: No cyanosis, clubbing or edema. NEURO: No focal sensory deficit. Medications and IVs Current Medications Medications (Trade) Dose Ordered Sig/Sukhjinder Route Start Time Stop Time Status Last Admin (NS Flush) 2 ml UNSCH PRN IV FLUSH 08/14/17 22:15 (Tylenol) 325 mg Q4H PRN PO 08/14/17 22:15 (Aspirin Chew) 81 mg DAILY PO 08/15/17 09:00 08/15/17 08:36 (Plavix) 75 mg DAILY PO 08/15/17 09:00 08/15/17 08:36 (Atropine Inj) 0.5 mg UNSCH PRN IV PUSH 08/14/17 22:15 (Zofran Inj) 4 mg Q4H PRN IV PUSH 08/14/17 22:15 (Lipitor) 10 mg HS PO 08/15/17 21:00 (Vitamin D3) 2,000 units DAILY PO 08/15/17 09:00 08/15/17 08:38 (Bentyl) 20 mg QID PO 10/31/17 09:00 08/15/17 08:35 (Lasix) 20 mg BID PO 08/15/17 09:00 08/15/17 08:37 ([place] 10-325 Mg) 1 tab Q6H PRN PO 08/14/17 22:15 08/15/17 01:38 (Synthroid) 25 mcg DAILY@0600 PO 08/15/17 06:00 08/15/17 05:56 (Protonix) 40 mg DAILY PO 08/15/17 09:00 08/15/17 08:39 (KCl) 10 meq DAILY PO 08/15/17 09:00 08/15/17 08:38 (Pravachol) 40 mg HS PO 08/15/17 21:00 (Carafate) 1 gm TID PO 08/15/17 09:00 08/15/17 08:35 (Hytrin) 2 mg HS PO 08/15/17 21:00 (Mag-Ox) 400 mg BID PO 08/15/17 09:00 08/15/17 08:37 (Desyrel) 150 mg HS PO 08/15/17 21:00 (Duoneb Neb) 1 ampule Q4HR NEB PRN INH 08/14/17 22:45 Miscellaneous Information 1 Q361D XX 08/14/17 22:45 (Chlorhexidine 2% Cloth) 3 pack Taper DAILY@04 TOP 08/15/17 04:00 08/11/18 03:59 (Chlorhexidine 2% Cloth) 3 pack UNSCH PRN TOP 08/14/17 22:45 (Katie-Colace) 1 tab BID PO 08/15/17 09:00 08/15/17 08:36 (Milk Of Magnesia Liq) 30 ml Q12H PRN PO 08/14/17 22:45 (Senokot) 17.2 mg Q12H PRN PO 08/14/17 22:45 (Dulcolax Supp) 10 mg DAILY PRN RECTAL 08/14/17 22:45 (Lactulose Liq) 30 ml DAILY PRN PO 08/14/17 22:45 (D50w (Vial) Inj) 50 ml UNSCH PRN IV PUSH 08/14/17 23:00 (Glucagon Inj) 1 mg UNSCH PRN OTHER 08/14/17 23:00 (NovoLIN R SUPPLEMENTAL SCALE) 1 Q4H SQ 08/14/17 23:00 08/15/17 03:26 (Heparin Inj) 5,000 units Q12H SQ 08/15/17 08:00 08/15/17 08:52 Magnesium Sulfate/ Dextrose 100 ml @ 100 mls/hr Q1H IV 08/15/17 11:00 08/15/17 12:59 (Coreg) 3.125 mg BID PO 08/15/17 10:00 08/15/17 10:00 A/P Assessment and Plan 1. Acute Myocardial Infarction, status post Cardiac Catheterization status post POBA to Distal LAD 2. Atrial Fibrillation with RVR continue medical management. 3. Hypothyroidism 4. CHF/Cardiomyopathy EF 25% recommended to continue Aspirin, Plavix, JUAN inhibitors, Statins, and Imdur, LifeVest at discharge follow up with Doctor Tripp. 5. DM II continue sliding scale. 6. Hyperlipidemia on Statins needs high intensity statins Atorvastatin 80 mg or Rosuvastatin 40 mg daily. Discussed with patient and his relative in the room , also with Mr. Holly nurse he was transferred to second floor to [facility]. Continue present care awaiting for LiveVest and set for Cardiac Rehab for discharge Discharge Planning if not possible later today in am tomorrow Darion Lambert MD Aug 15, 2017 11:09
[2017-08-15] MEDS: MAGNESIUM SULFATE 1 GM PREMIX 100 ML IV SCH ×4 (11:16→12:47)
--- NOTE | 2017-08-15 14:34 | HHI.CCPN ---
Subjective Remarks/Hospital Course 08/15: patient doing well. ambulating on my exam this morning around 9am. denies chest pain. denies other complaints. tolerated breakfast. voiding. back on home meds for CHF. slightly tachycardic at 103 but receiving daily carvedilol during my assessment. states he feels good and possibly ready for discharge home. Objective Vital Signs Date Time Temp Pulse Resp B/P (MAP) Pulse Ox O2 Delivery O2 Flow Rate FiO2 08/15/17 13:00 102 08/15/17 11:45 98.1 20 109/61 (77) 94 08/14/17 20:17 Nasal Cannula 2.00 Intake and Output 08/15/17 08/15/17 08/16/17 08:00 16:00 00:00 Intake Total 480 ml 100 ml Output Total 525 ml Balance -45 ml 100 ml Result Diagram: 08/15/17 0508 08/15/17 0508 Other Results Microbiology Date/Time Source Procedure Growth Status 08/14/17 17:41 Nasal Aspirate Influenza Types A,B Antigen ([place]) - Final NEGATIVE FOR FLU A AND B ANTIGEN.... Complete Objective Remarks gen: elderly male, standing up on my evaluation using a walker. heent: perrl. mucous membranes moist. neck: trachea midline. no jvd. chest: unlabored. equal chest rise. cv: slightly tachycardic rate at 103, regular rhythm. abd: soft, nontender, nondistended. extr: no peripheral edema. neuro: GCS 15. RASS 0. awake and alert. A/P Assessment and Plan Assessment: 77yM with nonischemic cardiomyopathy, EF 25% who presented with STEMI from very small distal LAD lesion which was balloon angioplastied with successful angiographic result. Per Dr. Cordova, the patient can be safely discharged home on his home regimen to follow up with Dr. Tripp as an outpatient. Patient will need LifeVest given low EF and risk of sudden cardiac . If patient feels safe going home and continues to tolerate diet, he may be discharged home. STEMI Nonischemic Cardiomyopathy, EF 25% s/p balloon angioplasty to distal LAD - heart healthy diet - LifeVest - may d/c home if continues to tolerate diet - home meds Discussed care with Dr. Cordova who agrees. Will transfer to hospitalist service if unable to d/c home today. Arnulfo Guillory MD Aug 15, 2017 14:34
[2017-08-15] MEDS: ALPRAZolam 0.5 MG TAB PO PRN ×4 (15:01→22:45)
--- NOTE | 2017-08-15 20:55 | EKG ---
Date Performed: 08/14/2017 Time Performed: 17:34:08 PTAGE: 77 years EKG: ATRIAL FIBRILLATION WITH RAPID VENTRICULAR RESPONSE MARKED LEFT AXIS DEVIATION POSSIBLE RIG HT VENTRICULAR CONDUCTION DELAY LEFT BUNDLE BRANCH BLOCK COMPARED TO PRIOR EKG PATIENT IS NOW IN ATRI AL FIBRILLATION AND HAS LEFT BUNDLE BRANCH BLOCK. ABNORMAL ECG PREVIOUS TRACING : 08/13/2016 13.19 DOCTOR: Angela Tripp Interpretating Date/Time 08/15/2017 20:53:34
--- NOTE | 2017-08-15 20:55 | EKG ---
Date Performed: 08/15/2017 Time Performed: 05:38:44 PTAGE: 77 years EKG: Atrial fibrillation Left axis deviation IV conduction defect Possible anteroseptal infarct - age undetermined Lateral T wave changes may be due to myocardial ischemia Low QRS voltages in preco rdial leads Compared to prior tracing no significant change Abnormal ECG PREVIOUS TRACING : 08/14/2017 20.10 DOCTOR: Angela Tripp Interpretating Date/Time 08/15/2017 20:54:03
--- NOTE | 2017-08-15 20:55 | EKG ---
Date Performed: 08/14/2017 Time Performed: 20:10:32 PTAGE: 77 years EKG: ATRIAL FIBRILLATION WITH RAPID VENTRICULAR RESPONSE WITH ABERRANT CONDUCTION OR VENTRICULAR PREMATURE COMPLEXES MARKED LEFT AXIS DEVIATION LEFT BUNDLE BRANCH BLOCK Compared to prior tracing no significant change ABNORMAL ECG PREVIOUS TRACING : 08/14/2017 17.34 DOCTOR: Angela Tripp Interpretating Date/Time 08/15/2017 20:53:52
[2017-08-15] MEDS ORDERED: PRAVASTATIN SOD 40 MG TAB PO SCH ×2 (21:00)
[2017-08-15] MEDS ORDERED: ATORVASTATIN 10 MG TAB PO SCH ×2 (21:00)
[2017-08-15] MEDS ORDERED: TERAZOSIN HCL 1 MG CAP PO SCH ×2 (21:00)
[2017-08-15] MEDS ORDERED: traZODone HCL 50 MG TAB PO SCH ×2 (21:00)
[2017-08-15] MEDS ORDERED: ATORVASTATIN 80 MG TAB PO SCH ×2 (21:00)
[2017-08-16] VITALS (17 sets, daily range): BP systolic 90–96; BP diastolic 62–75; PULSE 76–98; RESP 17–18; TEMP 97.5–98.2; O2SAT 96–97
[2017-08-16] MEDS: INSULIN NovoLIN REGULAR SUPPLEMENTAL SCALE SQ SCH ×8 (03:00→15:11)
[2017-08-16] MEDS: CHLORHEXIDINE GLUCONATE 2 % 1 PACK (2 CLOTHS) TOP SCH ×2 (04:00)
[2017-08-16] MEDS: LEVOTHYROXINE SODIUM 25 MCG TAB PO SCH ×2 (06:00)
[2017-08-16] MEDS: PANTOPRAZOLE SOD 40 MG DELAYED RELEASE TAB PO SCH ×2 (08:34)
[2017-08-16] MEDS: ASPIRIN 81 MG CHEW TAB PO SCH ×2 (08:34)
[2017-08-16] MEDS: CLOPIDOGREL 75 MG TAB PO SCH ×2 (08:34)
[2017-08-16] MEDS: FUROSEMIDE 20 MG TAB PO SCH ×2 (08:34)
[2017-08-16] MEDS: SUCRALFATE 1 GM TAB PO SCH ×6 (08:34→17:20)
[2017-08-16] MEDS: DICYCLOMINE HCL 20 MG TAB PO SCH ×6 (08:34→17:19)
[2017-08-16] MEDS: MAGNESIUM OXIDE 400 MG TAB PO SCH ×2 (08:34)
[2017-08-16] MEDS: CHOLECALCIFEROL (VIT D3) 1000 UNIT TAB PO SCH ×2 (08:35)
[2017-08-16] MEDS: POTASSIUM CHLORIDE 10 MEQ CAP PO SCH ×2 (08:35)
[2017-08-16] MEDS: CARVEDILOL 3.125 MG TAB PO SCH ×2 (08:35)
[2017-08-16] MEDS: DOCUSATE SODIUM 50 MG/SENNA 8.6 MG TAB PO SCH ×2 (08:35)
[2017-08-16] MEDS: HEPARIN SODIUM - SQ 10,000 UNITS/ML VIAL SQ SCH ×2 (08:35)
[2017-08-16] MEDS ORDERED: MAGNESIUM OXIDE 400 MG TAB PO SCH ×2 (09:45)
--- NOTE | 2017-08-16 10:21 | HHI.PR ---
Subjective Remarks This is a pleasant 77 y/o male with Hypertension, DM II, Hyperlipidemia, thyroid disease, Cardiomyopathy with EF 20-25% who consulted at [facility] wit Shortness of breath, BNP 610, Chest x-ray in the ER showed moderate congestive failure, with Diagnosis of STEMI was transferred to Cardiac Cath. The patient was already seen by internet security specialist for today, bu I was asked to continue his management for discharge once he is ready from patient centered care specialist standpoint the patient has shortness of breath, seen in his bedroom in the presence of nurse and his Relative, recommended to get LiveVest and Cardiac Rehab on Discharge. my last communication with the floor was at 16:13 and he doesn't has the LiveVest also the patient complaint he is been feeling Short of breath I explained his Ejection Fraction os low there's no signs of acute decompensation, will follow after Life Vest in place for discharge. 08/16: Stable seen in his bedroom, no new issues, discussed with nurse and with Motorcycle Fabricator, the patient is deconditioned will get PT evaluation for discharge may need SNF placement before going home the Life Vest will be ready this afternoon no nausea, vomit or diarrhea. Objective Vital Signs Date Time Temp Pulse Resp B/P (MAP) Pulse Ox O2 Delivery O2 Flow Rate FiO2 08/16/17 08:00 86 08/16/17 08:00 97.5 86 18 90/70 (77) 97 08/16/17 06:00 88 08/16/17 05:00 80 08/16/17 04:00 81 08/16/17 03:00 80 08/16/17 03:00 80 18 91/62 (72) 97 08/16/17 02:00 84 08/16/17 01:00 86 08/16/17 00:00 98 08/15/17 23:00 96.9 91 22 88/62 (71) 93 08/15/17 23:00 88 08/15/17 22:00 90 08/15/17 21:00 92 08/15/17 20:00 90 08/15/17 19:00 98.4 99 22 99/69 (79) 96 08/15/17 19:00 90 08/15/17 18:00 101 08/15/17 17:00 97 08/15/17 16:00 92 08/15/17 15:01 98.2 101 18 114/73 (87) 96 08/15/17 13:00 102 08/15/17 12:00 102 08/15/17 11:45 98.1 108 20 109/61 (77) 94 08/15/17 11:00 100 I/O 08/15/17 08/15/17 08/15/17 08/16/17 08/16/17 08/16/17 07:00 15:00 23:00 07:00 15:00 23:00 Intake Total 480 ml 100 ml 660 ml Output Total 525 ml Balance -45 ml 100 ml 660 ml Intake Oral 480 ml 660 ml IV Total 100 ml Output Urine Total 525 ml # Voids 1 Result Diagram: 08/15/17 0508 08/15/17 0508 Imaging Last Impressions Chest X-Ray 08/14/171714 Signed Impressions: Service Date/Time: Monday, August 14, 2017 17:27 - CONCLUSION: Spinal stimulator Moderate congestive failure. Esdras Bermeo MD FACR Procedures Cardiac Catheterization Other Results Laboratory Tests Test 08/14/17 17:40 08/14/17 18:53 08/15/17 05:08 08/15/17 08:20 Prothrombin Time 13.8 SEC Prothromb Time International Ratio 1.2 RATIO Total Creatine Kinase 292 U/L Creatine Kinase MB 15.5 NG/ML Troponin I GREATER THAN 40.00 NG/ML B-Type Natriuretic Peptide 610 PG/ML Urine Color YELLOW Urine Turbidity CLEAR Urine pH 5.5 Urine Specific [place] 1.010 Urine Protein NEG mg/dL Urine Glucose (UA) NEG mg/dL Urine Ketones 15 mg/dL Urine Occult Blood NEG Urine Nitrite NEG Urine Bilirubin NEG Urine Leukocyte Esterase NEG Urine WBC 0-2 /hpf Urine Squamous Epithelial Cells 0-5 /hpf Microscopic Urinalysis Comment CULT NOT INDICATED White Blood Count 8.2 TH/MM3 Red Blood Count 3.73 MIL/MM3 Hemoglobin 11.3 GM/DL Hematocrit 32.7 % Mean Corpuscular Volume 87.8 FL Mean Corpuscular Hemoglobin 30.3 PG Mean Corpuscular Hemoglobin Concent 34.5 % Red Cell Distribution Width 15.4 % Platelet Count 182 TH/MM3 Mean Platelet Volume 7.7 FL Neutrophils (%) (Auto) 76.8 % Lymphocytes (%) (Auto) 12.0 % Monocytes (%) (Auto) 10.9 % Eosinophils (%) (Auto) 0.1 % Basophils (%) (Auto) 0.2 % Neutrophils # (Auto) 6.3 TH/MM3 Lymphocytes # (Auto) 1.0 TH/MM3 Monocytes # (Auto) 0.9 TH/MM3 Eosinophils # (Auto) 0.0 TH/MM3 Basophils # (Auto) 0.0 TH/MM3 CBC Comment DIFF FINAL Differential Comment Blood Urea Nitrogen 16 MG/DL Creatinine 0.97 MG/DL Random Glucose 133 MG/DL Total Protein 6.4 GM/DL Albumin 3.4 GM/DL Calcium Level 8.2 MG/DL Phosphorus Level 4.0 MG/DL Magnesium Level 1.4 MG/DL Alkaline Phosphatase 52 U/L Aspartate Amino Transf (AST/SGOT) 51 U/L Alanine Aminotransferase (ALT/SGPT) 22 U/L Total Bilirubin 1.0 MG/DL Sodium Level 130 MEQ/L Potassium Level 4.6 MEQ/L Chloride Level 98 MEQ/L Carbon Dioxide Level 21.2 MEQ/L Anion Gap 11 MEQ/L Estimat Glomerular Filtration Rate 75 ML/MIN Lactic Acid Level 2.9 mmol/L Triglycerides Level 57 MG/DL Cholesterol Level 103 MG/DL LDL Cholesterol 39 MG/DL HDL Cholesterol 52.3 MG/DL Cholesterol/HDL Ratio 1.96 RATIO Thyroid Stimulating Hormone 3rd Gen 1.540 uIU/ML Activated Partial Thromboplast Time 31.0 SEC Objective Remarks GENERAL: Mild to Moderate Respiratory distress. HEENT: Atraumatic, normocephalic. NECK: Supple. No JVD, adenopathy or thyromegaly. Trachea in the midline. CARDIOVASCULAR EXAMINATION: Irregular rate and rhythm. PULMONARY EXAM: good breath sounds, no wheezing or crackles. ABDOMEN: Soft, nontender, no distension. Positive bowel sounds. EXTREMITIES: No cyanosis, clubbing or edema. NEURO: No focal sensory deficit. Medications and IVs Current Medications Medications (Trade) Dose Ordered Sig/Sukhjinder Route Start Time Stop Time Status Last Admin (NS Flush) 2 ml UNSCH PRN IV FLUSH 08/14/17 22:15 (Tylenol) 325 mg Q4H PRN PO 08/14/17 22:15 (Aspirin Chew) 81 mg DAILY PO 08/15/17 09:00 08/16/17 08:34 (Plavix) 75 mg DAILY PO 08/15/17 09:00 08/16/17 08:34 (Atropine Inj) 0.5 mg UNSCH PRN IV PUSH 08/14/17 22:15 (Zofran Inj) 4 mg Q4H PRN IV PUSH 08/14/17 22:15 (Vitamin D3) 2,000 units DAILY PO 08/15/17 09:00 08/16/17 08:35 (Bentyl) 20 mg QID PO 08/15/17 09:00 08/16/17 08:34 (Lasix) 20 mg BID PO 08/15/17 09:00 08/16/17 08:34 ([place] 10-325 Mg) 1 tab Q6H PRN PO 08/14/17 22:15 08/15/17 01:38 (Synthroid) 25 mcg DAILY@0600 PO 08/15/17 06:00 08/16/17 06:00 (Protonix) 40 mg DAILY PO 08/15/17 09:00 08/16/17 08:34 (KCl) 10 meq DAILY PO 08/15/17 09:00 08/16/17 08:35 (Pravachol) 40 mg HS PO 08/15/17 21:00 08/15/17 21:13 (Carafate) 1 gm TID PO 08/15/17 09:00 08/16/17 08:34 (Hytrin) 2 mg HS PO 08/15/17 21:00 08/15/17 21:13 (Mag-Ox) 400 mg BID PO 08/15/17 09:00 08/16/17 08:34 (Desyrel) 150 mg HS PO 08/15/17 21:00 08/15/17 21:13 (Duoneb Neb) 1 ampule Q4HR NEB PRN INH 08/14/17 22:45 Miscellaneous Information 1 Q361D XX 08/14/17 22:45 (Chlorhexidine 2% Cloth) 3 pack Taper DAILY@04 TOP 08/15/17 04:00 08/11/18 03:59 (Chlorhexidine 2% Cloth) 3 pack UNSCH PRN TOP 08/14/17 22:45 (Katie-Colace) 1 tab BID PO 08/15/17 09:00 08/16/17 08:35 (Milk Of Magnesia Liq) 30 ml Q12H PRN PO 08/14/17 22:45 (Senokot) 17.2 mg Q12H PRN PO 08/14/17 22:45 (Dulcolax Supp) 10 mg DAILY PRN RECTAL 08/14/17 22:45 (Lactulose Liq) 30 ml DAILY PRN PO 08/14/17 22:45 (D50w (Vial) Inj) 50 ml UNSCH PRN IV PUSH 08/14/17 23:00 (Glucagon Inj) 1 mg UNSCH PRN OTHER 08/14/17 23:00 (NovoLIN R SUPPLEMENTAL SCALE) 1 Q4H SQ 08/14/17 23:00 08/15/17 19:00 (Heparin Inj) 5,000 units Q12H SQ 08/15/17 08:00 08/16/17 08:35 (Coreg) 3.125 mg BID PO 08/15/17 10:00 08/16/17 08:35 (Lipitor) 80 mg HS PO 08/15/17 21:00 08/15/17 21:12 (Xanax) 0.5 mg Q8HR PRN PO 08/15/17 15:00 08/15/17 22:45 A/P Assessment and Plan 1. Acute Myocardial Infarction, status post Cardiac Catheterization status post POBA to Distal LAD stable ready to go home once the LifeVest is here this afternoon, asked for PT evaluation for probable SNF placement before going home, the patient wants to go home will follow. discussed with Motorcycle Fabricator and with Nurse. Miss Hennessy 2. Atrial Fibrillation with RVR continue medical management. 3. Hypothyroidism to continue Hormonal replacement. 4. CHF/Cardiomyopathy EF 25% recommended to continue Aspirin, Plavix, JUAN inhibitors, Statins, and Imdur, LifeVest at discharge follow up with Doctor Tripp. 5. DM II continue sliding scale. 6. Hyperlipidemia on Statins needs high intensity statins Atorvastatin 80 mg or Rosuvastatin 40 mg daily. Discussed with patient nurse and Case Manger all questions answered to the best of my abilities. Continue present care awaiting for LiveVest and set for Cardiac Rehab for discharge Discharge Planning Discharge planned for later today. Darion Lambert MD Aug 16, 2017 10:21
--- NOTE | 2017-08-16 10:40 | PD.CARD.PN ---
Subjective Subjective Remarks no complaints no overnight events s/p POBA to distal LAD [employer] (No blood transfusions) Objective Medications Current Medications Medications (Trade) Dose Ordered Sig/Sukhjinder Route Start Time Stop Time Status Last Admin (NS Flush) 2 ml UNSCH PRN IV FLUSH 08/14/17 22:15 (Tylenol) 325 mg Q4H PRN PO 08/14/17 22:15 (Aspirin Chew) 81 mg DAILY PO 08/15/17 09:00 08/16/17 08:34 (Plavix) 75 mg DAILY PO 08/15/17 09:00 08/16/17 08:34 (Atropine Inj) 0.5 mg UNSCH PRN IV PUSH 08/14/17 22:15 (Zofran Inj) 4 mg Q4H PRN IV PUSH 08/14/17 22:15 (Vitamin D3) 2,000 units DAILY PO 08/15/17 09:00 08/16/17 08:35 (Bentyl) 20 mg QID PO 08/15/17 09:00 08/16/17 08:34 (Lasix) 20 mg BID PO 08/15/17 09:00 08/16/17 08:34 ([place] 10-325 Mg) 1 tab Q6H PRN PO 08/14/17 22:15 08/15/17 01:38 (Synthroid) 25 mcg DAILY@0600 PO 08/15/17 06:00 08/16/17 06:00 (Protonix) 40 mg DAILY PO 08/15/17 09:00 08/16/17 08:34 (KCl) 10 meq DAILY PO 08/15/17 09:00 08/16/17 08:35 (Pravachol) 40 mg HS PO 08/15/17 21:00 08/15/17 21:13 (Carafate) 1 gm TID PO 08/15/17 09:00 08/16/17 08:34 (Hytrin) 2 mg HS PO 08/15/17 21:00 08/15/17 21:13 (Mag-Ox) 400 mg BID PO 08/15/17 09:00 08/16/17 08:34 (Desyrel) 150 mg HS PO 08/15/17 21:00 08/15/17 21:13 (Duoneb Neb) 1 ampule Q4HR NEB PRN INH 08/14/17 22:45 Miscellaneous Information 1 Q361D XX 08/14/17 22:45 (Chlorhexidine 2% Cloth) 3 pack Taper DAILY@04 TOP 08/15/17 04:00 08/11/18 03:59 (Chlorhexidine 2% Cloth) 3 pack UNSCH PRN TOP 08/14/17 22:45 (Katie-Colace) 1 tab BID PO 08/15/17 09:00 08/16/17 08:35 (Milk Of Magnesia Liq) 30 ml Q12H PRN PO 08/14/17 22:45 (Senokot) 17.2 mg Q12H PRN PO 08/14/17 22:45 (Dulcolax Supp) 10 mg DAILY PRN RECTAL 08/14/17 22:45 (Lactulose Liq) 30 ml DAILY PRN PO 08/14/17 22:45 (D50w (Vial) Inj) 50 ml UNSCH PRN IV PUSH 08/14/17 23:00 (Glucagon Inj) 1 mg UNSCH PRN OTHER 08/14/17 23:00 (NovoLIN R SUPPLEMENTAL SCALE) 1 Q4H SQ 08/14/17 23:00 08/15/17 19:00 (Heparin Inj) 5,000 units Q12H SQ 08/15/17 08:00 08/16/17 08:35 (Coreg) 3.125 mg BID PO 08/15/17 10:00 08/16/17 08:35 (Lipitor) 80 mg HS PO 08/15/17 21:00 08/15/17 21:12 (Xanax) 0.5 mg Q8HR PRN PO 08/15/17 15:00 08/15/17 22:45 Vital Signs / I&O Vital Signs Date Time Temp Pulse Resp B/P (MAP) Pulse Ox O2 Delivery O2 Flow Rate FiO2 08/16/17 08:00 86 08/16/17 08:00 97.5 86 18 90/70 (77) 97 08/16/17 06:00 88 08/16/17 05:00 80 08/16/17 04:00 81 08/16/17 03:00 80 08/16/17 03:00 80 18 91/62 (72) 97 08/16/17 02:00 84 08/16/17 01:00 86 08/16/17 00:00 98 08/15/17 23:00 96.9 91 22 88/62 (71) 93 08/15/17 23:00 88 08/15/17 22:00 90 08/15/17 21:00 92 08/15/17 20:00 90 08/15/17 19:00 98.4 99 22 99/69 (79) 96 08/15/17 19:00 90 08/15/17 18:00 101 08/15/17 17:00 97 08/15/17 16:00 92 08/15/17 15:01 98.2 101 18 114/73 (87) 96 08/15/17 13:00 102 08/15/17 12:00 102 08/15/17 11:45 98.1 108 20 109/61 (77) 94 08/15/17 11:00 100 I/O 08/15/17 08/15/17 08/15/17 08/16/17 08/16/17 08/16/17 07:00 15:00 23:00 07:00 15:00 23:00 Intake Total 480 ml 100 ml 660 ml Output Total 525 ml Balance -45 ml 100 ml 660 ml Intake Oral 480 ml 660 ml IV Total 100 ml Output Urine Total 525 ml # Voids 1 Physical Exam GENERAL: Well-nourished, well-developed patient. SKIN: Warm and dry. HEAD: Normocephalic. EYES: No scleral icterus. No injection or drainage. NECK: Supple, trachea midline. No JVD or lymphadenopathy. CARDIOVASCULAR: Regular rate and rhythm without murmurs, gallops, or rubs. RESPIRATORY: Breath sounds equal bilaterally. No accessory muscle use. GASTROINTESTINAL: Abdomen soft, non-tender, nondistended. EXTREMITIES: No cyanosis, or edema. NEUROLOGICAL: Awake, alert, and oriented x 3. Non-focal. Assessment and Plan Problem List: (1) Myocardial infarction ICD Codes: I21.9 - Acute myocardial infarction, unspecified Status: Acute Plan: s/p POBA to distal LAD Hx of Nonischemic CMP with EF ~25% Cont ASA, Plavix, Coreg, ACEi, Statin, Imdur PT Cardiac rehab LifeVest upon d/c F/u with Dr. Tripp upon discharge (2) CHF (congestive heart failure) ICD Codes: I50.9 - Heart failure, unspecified Status: Acute (3) Atrial fibrillation with RVR ICD Codes: I48.91 - Unspecified atrial fibrillation Status: Acute Cordova-Nima Kramer MD Aug 16, 2017 10:40
[2017-08-16] MEDS: ALPRAZolam 0.5 MG TAB PO PRN ×2 (11:20)
[2017-08-16] MEDS ORDERED: ATOR1TAB18 PO ×2 (15:05)
[2017-08-16] MEDS ORDERED: SYMB160A INH ×2 (15:05)
[2017-08-16] MEDS ORDERED: CARV3.125 PO ×2 (15:05)
[2017-08-16] MEDS ORDERED: ASPI81CH25 PO ×2 (15:05)
--- NOTE | 2017-08-16 15:06 | HHI.DS ---
Discharge Summary Admission Date Aug 14, 2017 at 19:05 Discharge Date: Aug 16, 2017 Admitting Diagnosis mi, chf exacerbation, lactic acidosis, afib with rvr (1) CHF (congestive heart failure) ICD Code: I50.9 - Heart failure, unspecified Diagnosis: Principal Status: Acute (2) Myocardial infarction ICD Code: I21.9 - Acute myocardial infarction, unspecified Diagnosis: Principal Status: Acute (3) Atrial fibrillation with RVR ICD Code: I48.91 - Unspecified atrial fibrillation Diagnosis: Principal Status: Acute Procedures Cardiac Cath Brief History - From Admission The patient is a 77-year-old male with a past medical history of hypertension, diabetes mellitus, hyperlipidemia, thyroid disease, cardiomyopathy with EF of 20-25%. The patient initially presented to the [place] ED was with a three-day history of shortness of breath and was complaining of heartburn. The patient is a poor historian and most of the history was obtained from the patient's . On arrival to the ER the patient was tachycardic and his EKG showed atrial fibrillation with rapid ventricular response. His initial laboratory data showed troponin greater than 40, lactic acid of 5.2 and BNP of 610. Chest x-ray in the ER showed moderate congestive failure. Other abnormal labs showed mild leukocytosis with a WBC of 12.9. In the ED he was given aspirin, Lasix, vancomycin and cefepime and placed on heparin drip. Dr. Cordova was notified by the ED and requested to transfer the patient as a STEMI Alert at 20:27. The patient was taken to the component lab tech where he underwent angioplasty for a distal LAD occlusion. He was transferred to [facility] per component lab tech. When seen the patient is awake, alert, lying in bed in no acute respiratory distress. He is on room air oxygen. He denies any nausea, vomiting, abdominal pain. No history of any constitutional symptoms. CBC/BMP: 08/15/17 0508 08/15/17 0508 Significant Findings Laboratory Tests Test 08/14/17 17:40 08/14/17 18:53 08/14/17 20:03 08/14/17 23:18 White Blood Count 12.9 TH/MM3 (4.0-11.0) Red Blood Count 4.07 MIL/MM3 (4.50-5.90) Hemoglobin 11.5 GM/DL (13.0-17.0) Hematocrit 35.6 % (39.0-51.0) Neutrophils (%) (Auto) 88.9 % (16.0-70.0) Lymphocytes (%) (Auto) 4.4 % (9.0-44.0) Neutrophils # (Auto) 11.5 TH/MM3 (1.8-7.7) Lymphocytes # (Auto) 0.6 TH/MM3 (1.0-4.8) Prothrombin Time 13.8 SEC (9.8-11.6) Random Glucose 150 MG/DL (74-106) Calcium Level 8.4 MG/DL (8.5-10.1) Magnesium Level 1.4 MG/DL (1.5-2.5) Aspartate Amino Transf (AST/SGOT) 67 U/L (15-37) Sodium Level 133 MEQ/L (136-145) Carbon Dioxide Level 19.7 MEQ/L (21.0-32.0) Estimat Glomerular Filtration Rate 65 ML/MIN (>89) Lactic Acid Level 5.2 mmol/L (0.4-2.0) 4.5 mmol/L (0.4-2.0) 3.4 mmol/L (0.4-2.0) Creatine Kinase MB 15.5 NG/ML (0.5-3.6) Troponin I GREATER THAN 40.00 NG/ML B-Type Natriuretic Peptide 610 PG/ML (0-100) Urine Ketones 15 mg/dL (NEG) Test 08/15/17 05:08 08/15/17 08:20 Red Blood Count 3.73 MIL/MM3 (4.50-5.90) Hemoglobin 11.3 GM/DL (13.0-17.0) Hematocrit 32.7 % (39.0-51.0) Neutrophils (%) (Auto) 76.8 % (16.0-70.0) Monocytes (%) (Auto) 10.9 % (0.0-8.0) Random Glucose 133 MG/DL (74-106) Calcium Level 8.2 MG/DL (8.5-10.1) Magnesium Level 1.4 MG/DL (1.5-2.5) Aspartate Amino Transf (AST/SGOT) 51 U/L (15-37) Sodium Level 130 MEQ/L (136-145) Estimat Glomerular Filtration Rate 75 ML/MIN (>89) Lactic Acid Level 2.9 mmol/L (0.4-2.0) Cholesterol Level 103 MG/DL (120-200) Activated Partial Thromboplast Time 31.0 SEC (24.3-30.1) Imaging Last Impressions Chest X-Ray 08/14/17 7524 Signed Impressions: Service Date/Time: Monday, August 14, 2017 17:27 - CONCLUSION: Spinal stimulator Moderate congestive failure. Esdras Bermeo MD FACR PE at Discharge GENERAL: NO acute distress today. HEENT: Atraumatic, normocephalic. NECK: Supple. No JVD, adenopathy or thyromegaly. Trachea in the midline. CARDIOVASCULAR EXAMINATION: Irregular rate and rhythm. PULMONARY EXAM: good breath sounds, no wheezing or crackles. ABDOMEN: Soft, nontender, no distension. Positive bowel sounds. EXTREMITIES: No cyanosis, clubbing or edema. NEURO: No focal sensory deficit. Alert and oriented x 4. Hospital Course This is a pleasant 77 y/o male with Hypertension, DM II, Hyperlipidemia, thyroid disease, Cardiomyopathy with EF 20-25% who consulted at [place] ED wit Shortness of breath, BNP 610, Chest x-ray in the ER showed moderate congestive failure, with Diagnosis of STEMI was transferred to Cardiac Cath. The patient was already seen by revenue cycle specialist for today, bu I was asked to continue his management for discharge once he is ready from talent specialist standpoint the patient has shortness of breath, seen in his bedroom in the presence of nurse and his Relative, recommended to get LiveVest and Cardiac Rehab on Discharge. my last communication with the floor was at 16:13 and he doesn't has the LiveVest also the patient complaint he is been feeling Short of breath I explained his Ejection Fraction os low there's no signs of acute decompensation, will follow after Life Vest in place for discharge. 08/16: Stable seen in his bedroom, no new issues, discussed with nurse and with Bale Opener, the patient is deconditioned will get PT evaluation for discharge may need SNF placement before going home the Life Vest will be ready this afternoon no nausea, vomit or diarrhea. Assessment and Plan 1. Acute Myocardial Infarction, status post Cardiac Catheterization status post POBA to Distal LAD stable ready to go home once the LifeVest is here this afternoon, asked for PT evaluation for probable SNF placement before going home, the patient wants to go home will follow. discussed with Bale Opener and with Nurse. Miss Hennessy 2. Atrial Fibrillation with RVR continue medical management. 3. Hypothyroidism to continue Hormonal replacement. 4. CHF/Cardiomyopathy EF 25% recommended to continue Aspirin, Plavix, JUAN inhibitors, Statins, and Imdur, LifeVest at discharge follow up with Doctor Qasim. 5. DM II continue sliding scale. 6. Hyperlipidemia on Statins needs high intensity statins Atorvastatin 80 mg or Rosuvastatin 40 mg daily. Discussed with patient nurse and Case Manger all questions answered to the best of my abilities. Continue present care awaiting for Live-Vest and set for Cardiac Rehab for discharge Discharge Planning Discharge to SNF to continue Rehab but the patient refused, this was documented the patient decided to go home with home health care the patient is alert and oriented x 4. Pt Condition on Discharge: Stable Discharge Disposition: Discharge to SNF Discharge Time: <= 30 minutes Discharge Instructions DIET: Follow Instructions for: Heart Healthy Diet Activities you can perform: Regular-No Restrictions Other Activity Instructions: Follow PT recommendations in Rehab Darion Lambert MD Aug 16, 2017 15:06
--- NOTE | 2017-08-16 15:06 | HHI.DS ---
Discharge Summary Admission Date Aug 14, 2017 at 19:05 Discharge Date: Aug 16, 2017 Admitting Diagnosis mi, chf exacerbation, lactic acidosis, afib with rvr (1) CHF (congestive heart failure) ICD Code: I50.9 - Heart failure, unspecified Diagnosis: Principal Status: Acute (2) Myocardial infarction ICD Code: I21.9 - Acute myocardial infarction, unspecified Diagnosis: Principal Status: Acute (3) Atrial fibrillation with RVR ICD Code: I48.91 - Unspecified atrial fibrillation Diagnosis: Principal Status: Acute Procedures Cardiac Cath Brief History - From Admission The patient is a 77-year-old male with a past medical history of hypertension, diabetes mellitus, hyperlipidemia, thyroid disease, cardiomyopathy with EF of 20-25%. The patient initially presented to the [facility] ED was with a three-day history of shortness of breath and was complaining of heartburn. The patient is a poor historian and most of the history was obtained from the patient's . On arrival to the ER the patient was tachycardic and his EKG showed atrial fibrillation with rapid ventricular response. His initial laboratory data showed troponin greater than 40, lactic acid of 5.2 and BNP of 610. Chest x-ray in the ER showed moderate congestive failure. Other abnormal labs showed mild leukocytosis with a WBC of 12.9. In the ED he was given aspirin, Lasix, vancomycin and cefepime and placed on heparin drip. Dr. Cordova was notified by the ED and requested to transfer the patient as a STEMI Alert at 20:27. The patient was taken to the ammunition assembly i laborer where he underwent angioplasty for a distal LAD occlusion. He was transferred to [facility] per ammunition assembly i laborer. When seen the patient is awake, alert, lying in bed in no acute respiratory distress. He is on room air oxygen. He denies any nausea, vomiting, abdominal pain. No history of any constitutional symptoms. CBC/BMP: 08/15/17 0508 08/15/17 0508 Significant Findings Laboratory Tests Test 08/14/17 17:40 08/14/17 18:53 08/14/17 20:03 08/14/17 23:18 White Blood Count 12.9 TH/MM3 (4.0-11.0) Red Blood Count 4.07 MIL/MM3 (4.50-5.90) Hemoglobin 11.5 GM/DL (13.0-17.0) Hematocrit 35.6 % (39.0-51.0) Neutrophils (%) (Auto) 88.9 % (16.0-70.0) Lymphocytes (%) (Auto) 4.4 % (9.0-44.0) Neutrophils # (Auto) 11.5 TH/MM3 (1.8-7.7) Lymphocytes # (Auto) 0.6 TH/MM3 (1.0-4.8) Prothrombin Time 13.8 SEC (9.8-11.6) Random Glucose 150 MG/DL (74-106) Calcium Level 8.4 MG/DL (8.5-10.1) Magnesium Level 1.4 MG/DL (1.5-2.5) Aspartate Amino Transf (AST/SGOT) 67 U/L (15-37) Sodium Level 133 MEQ/L (136-145) Carbon Dioxide Level 19.7 MEQ/L (21.0-32.0) Estimat Glomerular Filtration Rate 65 ML/MIN (>89) Lactic Acid Level 5.2 mmol/L (0.4-2.0) 4.5 mmol/L (0.4-2.0) 3.4 mmol/L (0.4-2.0) Creatine Kinase MB 15.5 NG/ML (0.5-3.6) Troponin I GREATER THAN 40.00 NG/ML B-Type Natriuretic Peptide 610 PG/ML (0-100) Urine Ketones 15 mg/dL (NEG) Test 08/15/17 05:08 08/15/17 08:20 Red Blood Count 3.73 MIL/MM3 (4.50-5.90) Hemoglobin 11.3 GM/DL (13.0-17.0) Hematocrit 32.7 % (39.0-51.0) Neutrophils (%) (Auto) 76.8 % (16.0-70.0) Monocytes (%) (Auto) 10.9 % (0.0-8.0) Random Glucose 133 MG/DL (74-106) Calcium Level 8.2 MG/DL (8.5-10.1) Magnesium Level 1.4 MG/DL (1.5-2.5) Aspartate Amino Transf (AST/SGOT) 51 U/L (15-37) Sodium Level 130 MEQ/L (136-145) Estimat Glomerular Filtration Rate 75 ML/MIN (>89) Lactic Acid Level 2.9 mmol/L (0.4-2.0) Cholesterol Level 103 MG/DL (120-200) Activated Partial Thromboplast Time 31.0 SEC (24.3-30.1) Imaging Last Impressions Chest X-Ray 08/14/17 [id number] Signed Impressions: Service Date/Time: Monday, August 14, 2017 17:27 - CONCLUSION: Spinal stimulator Moderate congestive failure. Esdras Bermeo MD FACR PE at Discharge GENERAL: NO acute distress today. HEENT: Atraumatic, normocephalic. NECK: Supple. No JVD, adenopathy or thyromegaly. Trachea in the midline. CARDIOVASCULAR EXAMINATION: Irregular rate and rhythm. PULMONARY EXAM: good breath sounds, no wheezing or crackles. ABDOMEN: Soft, nontender, no distension. Positive bowel sounds. EXTREMITIES: No cyanosis, clubbing or edema. NEURO: No focal sensory deficit. Alert and oriented x 4. Hospital Course This is a pleasant 77 y/o male with Hypertension, DM II, Hyperlipidemia, thyroid disease, Cardiomyopathy with EF 20-25% who consulted at [facility] ED wit Shortness of breath, BNP 610, Chest x-ray in the ER showed moderate congestive failure, with Diagnosis of STEMI was transferred to Cardiac Cath. The patient was already seen by case specialist for today, bu I was asked to continue his management for discharge once he is ready from culinary specialist standpoint the patient has shortness of breath, seen in his bedroom in the presence of nurse and his Relative, recommended to get LiveVest and Cardiac Rehab on Discharge. my last communication with the floor was at 16:13 and he doesn't has the LiveVest also the patient complaint he is been feeling Short of breath I explained his Ejection Fraction os low there's no signs of acute decompensation, will follow after Life Vest in place for discharge. 08/16: Stable seen in his bedroom, no new issues, discussed with nurse and with Psychiatric Technician Assistant, the patient is deconditioned will get PT evaluation for discharge may need SNF placement before going home the Life Vest will be ready this afternoon no nausea, vomit or diarrhea. Assessment and Plan 1. Acute Myocardial Infarction, status post Cardiac Catheterization status post POBA to Distal LAD stable ready to go home once the LifeVest is here this afternoon, asked for PT evaluation for probable SNF placement before going home, the patient wants to go home will follow. discussed with Psychiatric Technician Assistant and with Nurse. Miss Hennessy 2. Atrial Fibrillation with RVR continue medical management. 3. Hypothyroidism to continue Hormonal replacement. 4. CHF/Cardiomyopathy EF 25% recommended to continue Aspirin, Plavix, JUAN inhibitors, Statins, and Imdur, LifeVest at discharge follow up with Doctor Qasim. 5. DM II continue sliding scale. 6. Hyperlipidemia on Statins needs high intensity statins Atorvastatin 80 mg or Rosuvastatin 40 mg daily. Discussed with patient nurse and Case Manger all questions answered to the best of my abilities. Continue present care awaiting for Live-Vest and set for Cardiac Rehab for discharge Discharge Planning Discharge to SNF to continue Rehab but the patient refused, this was documented the patient decided to go home with home health care the patient is alert and oriented x 4. Pt Condition on Discharge: Stable Discharge Disposition: Discharge to SNF Discharge Time: <= 30 minutes Discharge Instructions DIET: Follow Instructions for: Heart Healthy Diet Activities you can perform: Regular-No Restrictions Other Activity Instructions: Follow PT recommendations in Rehab Darion Lambert MD Aug 16, 2017 15:06
--- NOTE | 2017-08-16 15:06 | HHI.DS ---
Discharge Summary Admission Date Aug 14, 2017 at 19:05 Discharge Date: Aug 16, 2017 Admitting Diagnosis mi, chf exacerbation, lactic acidosis, afib with rvr (1) CHF (congestive heart failure) ICD Code: I50.9 - Heart failure, unspecified Diagnosis: Principal Status: Acute (2) Myocardial infarction ICD Code: I21.9 - Acute myocardial infarction, unspecified Diagnosis: Principal Status: Acute (3) Atrial fibrillation with RVR ICD Code: I48.91 - Unspecified atrial fibrillation Diagnosis: Principal Status: Acute Procedures Cardiac Cath Brief History - From Admission The patient is a 77-year-old male with a past medical history of hypertension, diabetes mellitus, hyperlipidemia, thyroid disease, cardiomyopathy with EF of 20-25%. The patient initially presented to the [place] ED was with a three-day history of shortness of breath and was complaining of heartburn. The patient is a poor historian and most of the history was obtained from the patient's . On arrival to the ER the patient was tachycardic and his EKG showed atrial fibrillation with rapid ventricular response. His initial laboratory data showed troponin greater than 40, lactic acid of 5.2 and BNP of 610. Chest x-ray in the ER showed moderate congestive failure. Other abnormal labs showed mild leukocytosis with a WBC of 12.9. In the ED he was given aspirin, Lasix, vancomycin and cefepime and placed on heparin drip. Dr. Cordova was notified by the ED and requested to transfer the patient as a STEMI Alert at 20:27. The patient was taken to the solder making laborer where he underwent angioplasty for a distal LAD occlusion. He was [facility] to [facility] per solder making laborer. When seen the patient is awake, alert, lying in bed in no acute respiratory distress. He is on room air oxygen. He denies any nausea, vomiting, abdominal pain. No history of any constitutional symptoms. CBC/BMP: 08/15/17 0508 08/15/17 0508 Significant Findings Laboratory Tests Test 08/14/17 17:40 08/14/17 18:53 08/14/17 20:03 08/14/17 23:18 White Blood Count 12.9 TH/MM3 (4.0-11.0) Red Blood Count 4.07 MIL/MM3 (4.50-5.90) Hemoglobin 11.5 GM/DL (13.0-17.0) Hematocrit 35.6 % (39.0-51.0) Neutrophils (%) (Auto) 88.9 % (16.0-70.0) Lymphocytes (%) (Auto) 4.4 % (9.0-44.0) Neutrophils # (Auto) 11.5 TH/MM3 (1.8-7.7) Lymphocytes # (Auto) 0.6 TH/MM3 (1.0-4.8) Prothrombin Time 13.8 SEC (9.8-11.6) Random Glucose 150 MG/DL (74-106) Calcium Level 8.4 MG/DL (8.5-10.1) Magnesium Level 1.4 MG/DL (1.5-2.5) Aspartate Amino Transf (AST/SGOT) 67 U/L (15-37) Sodium Level 133 MEQ/L (136-145) Carbon Dioxide Level 19.7 MEQ/L (21.0-32.0) Estimat Glomerular Filtration Rate 65 ML/MIN (>89) Lactic Acid Level 5.2 mmol/L (0.4-2.0) 4.5 mmol/L (0.4-2.0) 3.4 mmol/L (0.4-2.0) Creatine Kinase MB 15.5 NG/ML (0.5-3.6) Troponin I GREATER THAN 40.00 NG/ML B-Type Natriuretic Peptide 610 PG/ML (0-100) Urine Ketones 15 mg/dL (NEG) Test 08/15/17 05:08 08/15/17 08:20 Red Blood Count 3.73 MIL/MM3 (4.50-5.90) Hemoglobin 11.3 GM/DL (13.0-17.0) Hematocrit 32.7 % (39.0-51.0) Neutrophils (%) (Auto) 76.8 % (16.0-70.0) Monocytes (%) (Auto) 10.9 % (0.0-8.0) Random Glucose 133 MG/DL (74-106) Calcium Level 8.2 MG/DL (8.5-10.1) Magnesium Level 1.4 MG/DL (1.5-2.5) Aspartate Amino Transf (AST/SGOT) 51 U/L (15-37) Sodium Level 130 MEQ/L (136-145) Estimat Glomerular Filtration Rate 75 ML/MIN (>89) Lactic Acid Level 2.9 mmol/L (0.4-2.0) Cholesterol Level 103 MG/DL (120-200) Activated Partial Thromboplast Time 31.0 SEC (24.3-30.1) Imaging Last Impressions Chest X-Ray 08/14/17 [id number] Signed Impressions: Service Date/Time: Monday, August 14, 2017 17:27 - CONCLUSION: Spinal stimulator Moderate congestive failure. Esdras Bermeo MD FACR PE at Discharge GENERAL: NO acute distress today. HEENT: Atraumatic, normocephalic. NECK: Supple. No JVD, adenopathy or thyromegaly. Trachea in the midline. CARDIOVASCULAR EXAMINATION: Irregular rate and rhythm. PULMONARY EXAM: good breath sounds, no wheezing or crackles. ABDOMEN: Soft, nontender, no distension. Positive bowel sounds. EXTREMITIES: No cyanosis, clubbing or edema. NEURO: No focal sensory deficit. Alert and oriented x 4. Hospital Course This is a pleasant 77 y/o male with Hypertension, DM II, Hyperlipidemia, thyroid disease, Cardiomyopathy with EF 20-25% who consulted at [place] ED wit Shortness of breath, BNP 610, Chest x-ray in the ER showed moderate congestive failure, with Diagnosis of STEMI was transferred to Cardiac Cath. The patient was already seen by field property loss specialist for today, bu I was asked to continue his management for discharge once he is ready from solar site assessment specialist standpoint the patient has shortness of breath, seen in his bedroom in the presence of nurse and his Relative, recommended to get LiveVest and Cardiac Rehab on Discharge. my last communication with the floor was at 16:13 and he doesn't has the LiveVest also the patient complaint he is been feeling Short of breath I explained his Ejection Fraction os low there's no signs of acute decompensation, will follow after Life Vest in place for discharge. 08/16: Stable seen in his bedroom, no new issues, discussed with nurse and with Editor Newspaper, the patient is deconditioned will get PT evaluation for discharge may need SNF placement before going home the Life Vest will be ready this afternoon no nausea, vomit or diarrhea. Assessment and Plan 1. Acute Myocardial Infarction, status post Cardiac Catheterization status post POBA to Distal LAD stable ready to go home once the LifeVest is here this afternoon, asked for PT evaluation for probable SNF placement before going home, the patient wants to go home will follow. discussed with Editor Newspaper and with Nurse. Miss Hennessy 2. Atrial Fibrillation with RVR continue medical management. 3. Hypothyroidism to continue Hormonal replacement. 4. CHF/Cardiomyopathy EF 25% recommended to continue Aspirin, Plavix, JUAN inhibitors, Statins, and Imdur, LifeVest at discharge follow up with Doctor Qasim. 5. DM II continue sliding scale. 6. Hyperlipidemia on Statins needs high intensity statins Atorvastatin 80 mg or Rosuvastatin 40 mg daily. Discussed with patient nurse and Case Manger all questions answered to the best of my abilities. Continue present care awaiting for Live-Vest and set for Cardiac Rehab for discharge Discharge Planning Discharge to SNF to continue Rehab but the patient refused, this was documented the patient decided to go home with home health care the patient is alert and oriented x 4. Pt Condition on Discharge: Stable Discharge Disposition: Discharge to SNF Discharge Time: <= 30 minutes Discharge Instructions DIET: Follow Instructions for: Heart Healthy Diet Activities you can perform: Regular-No Restrictions Other Activity Instructions: Follow PT recommendations in Rehab Darion Lambert MD Aug 16, 2017 15:06
--- NOTE | 2017-08-16 15:40 | HHI.FF ---
Face to Face Verification Diagnosis: (1) TIA (transient ischemic attack) (2) CHF (congestive heart failure) (3) Atrial fibrillation with RVR (4) Myocardial infarction Physical Therapy Order: Evaluate and Treat, Improve ambulation, Strength and gait training Home Health Nursing Order: Medical education Signs/symptoms of disease process CHF education Nursing assessment with vital signs Instructions: Follow LifeVest I have seen patient Will Fernandez on 08/16/17. My clinical findings support the need for the requested home health care services because: Ltd mobility - disease progression Deconditioned w/ increased weakness I certify that my clinical findings support that this patient is homebound because: Unsteady gait/balance Unsafe to leave home unassisted Darion Lambert MD Aug 16, 2017 3:40 pm
== END 2017-08-16 18:28 | disposition home health service (06) | DRG 251 ==
LOC: PHED 17:03 → PHEDA 19:05 → HCPC 22:10 → HCIN 08-15 14:02
PROVIDERS: ADMIT Internal Medicine; ATTEND Internal Medicine
PROC: 02703ZZ Dilation of Coronary Artery, One Artery, Percutaneous Approach (ICD-10-PCS; principal; 2017-08-14)
PROC: 4A023N7 Measurement of Cardiac Sampling and Pressure, Left Heart, Percutaneous Approach (ICD-10-PCS; 2017-08-14)
PROC: B2111ZZ Fluoroscopy of Multiple Coronary Arteries using Low Osmolar Contrast (ICD-10-PCS; 2017-08-14)
PROC: B2151ZZ Fluoroscopy of Left Heart using Low Osmolar Contrast (ICD-10-PCS; 2017-08-14)
PROC: B41F1ZZ Fluoroscopy of Right Lower Extremity Arteries using Low Osmolar Contrast (ICD-10-PCS; 2017-08-14)
DX: I21.4 Non-ST elevation (NSTEMI) myocardial infarction (principal); E87.2 Acidosis; I42.9 Cardiomyopathy, unspecified; I11.0 Hypertensive heart disease with heart failure; I50.20 Unspecified systolic (congestive) heart failure; E11.9 Type 2 diabetes mellitus without complications; D72.829 Elevated white blood cell count, unspecified; I48.91 Unspecified atrial fibrillation; E78.5 Hyperlipidemia, unspecified; I44.7 Left bundle-branch block, unspecified; K21.9 Gastro-esophageal reflux disease without esophagitis; I25.10 Atherosclerotic heart disease of native coronary artery without angina pectoris; E03.9 Hypothyroidism, unspecified; R00.0 Tachycardia, unspecified; M54.9 Dorsalgia, unspecified; G89.29 Other chronic pain; G47.30 Sleep apnea, unspecified; Z90.49 Acquired absence of other specified parts of digestive tract; Z79.82 Long term (current) use of aspirin; Z79.84 Long term (current) use of oral hypoglycemic drugs; Z79.899 Other long term (current) drug therapy
CPT/HCPCS: 71010; 80053; 80061; 81001; 82550; 82552; 82948; 83605; 83735; 83880; 84100; 84443; 84484; 85025; 85610; 85730; 87040; 87804; 92920; 93005; 93458; 96365; 96375; C1725; C1760; C1769; C1887; C1893; G0269; J0692; J1644; J1940; J2250; J3010; J3370; J3475; J7030; J7040; J7050; Q9967

== ENCOUNTER 2017-08-28 14:43 | Inpatient (IN) | payer OTHER, MEDICARE ==
[2017-08-28] VITALS (7 sets, daily range): BP systolic 90–115; BP diastolic 65–78; PULSE 87–108; RESP 15–18; TEMP 96.2–97.4; O2SAT 93–97
[~2017-08-28] VITALS: Ht 177.8 cm; Wt 95.3 kg
[~2017-08-28 14:43] MED LIST changes: +ASPI81CH25 PO; -ASPI81TA11 PO; +ATOR80TA45 PO; +CARV3.125 PO; +DICY20TA10 PO; +HYDR-3583 PO; +KRIL1000 PO; +MAGN500T2 PO; +POTA10CA PO; -PRAV40TA2 PO; -REGL10TA5 PO; +SYMB160A INH; +TRAZ100T10 PO; +VITA1000 PO
--- NOTE | 2017-08-28 15:14 | PD ---
HPI Chief Complaint: Edema Time Seen by Provider: 14:55 Travel History International Travel<30 days: No Contact w/Intl Traveler<30days: No Traveled to known affect area: No History of Present Illness HPI This 77-year-old male is complaining of shortness of breath. He has a history of coronary artery disease. He was recently admitted to the hospital with a non -STEMI and on August 14 he had angioplasty performed to open the lesion in the distal LAD. At that time it was noted that he had severe left ventricular systolic dysfunction with ejection fraction of 20-25%. He apparently has a history of nonischemic cardiomyopathy. He has been at home. He is complaining of inability to lay flat due to dyspnea. He gets short of breath with minimal exertion. He says he has been like this since the procedure was done area today at home health nurse went to visit and felt that his abdominal abdomen was more distended than it has been. He does say that his abdomen is distended. He is not having pain in the abdomen or vomiting or diarrhea. He denies chest pain. PFSH Past Medical History Anxiety: Yes Cancer: No Cardiac Catheterization: Yes ( "50% blockage" ) Cardiovascular Problems: Yes High Cholesterol: Yes Diabetes: Yes Diminished Hearing: No Genitourinary: No Hepatitis: Yes (A) Hiatal Hernia: No Hypertension: Yes Implanted Vascular Access Dvce: Yes Neurologic: Yes (altered mental status) Psychiatric: Yes Reproductive: No Respiratory: Yes (SLEEEP APNEA) Immunizations Current: No Sleep Apnea: Yes Thyroid Disease: No Past Surgical History Abdominal Surgery: Yes (LAP RYLIE) Body Medical Devices: MORPHINE PUMP RIGHT ABDOMEN Cholecystectomy: Yes Pacemaker: No Other Surgery: Yes (FINGERS AMPUTATED TO RIGHT HAND AND NOSE SURGERY) Social History Alcohol Use: No Tobacco Use: No Substance Use: No Allergies-Medications (Allergen,Severity, Reaction): Coded Allergies: MRI PRECAUTION (Verified Adverse Reaction, Severe, SPINAL STIMULATOR, ) DML 08/13/16, Reported Meds & Prescriptions Reported Meds & Active Scripts Active Symbicort Inh (Budesonide/Formoterol Fumarate) 160-4.5 Mcg/Act Aero 1 Puff INH Q12HR Aspirin Low Strength (Aspirin) 81 Mg Chew 81 Mg PO DAILY Coreg (Carvedilol) 3.125 Mg Tab 3.125 Mg PO BID Atorvastatin (Atorvastatin Calcium) 80 Mg Tab 80 Mg PO HS Reported Potassium Chloride ER (Potassium Chloride) 10 Meq Cap 10 Meq PO DAILY Hydrocodone-Acetaminophen 10-325 mg Tab 1 Tab PO Q6H PRN Dicyclomine (Dicyclomine HCl) 20 Mg Tab 20 Mg PO QID Trazodone (Trazodone HCl) 100 Mg Tablet 150 Mg PO HS Krill Oil 1,000 Mg Cap 1,000 Mg PO BID Vitamin D-1000 (Cholecalciferol) 1,000 Unit Tab 2,000 Units PO DAILY Magnesium Oxide 500 Mg Tab 500 Mg PO BID Carafate (Sucralfate) 1 Gm Tab 1 Gm PO TID On empty stomach [Morphine Pump] Terazosin (Terazosin HCl) 2 Mg Cap 2 Mg PO HS Xanax (Alprazolam) 0.5 Mg Tab 0.5 Mg PO PRN Lasix (Furosemide) 20 Mg Tab 20 Mg PO BID MOWEFR Pantoprazole (Pantoprazole Sodium) 40 Mg Tab 40 Mg PO DAILY Levothyroxine (Levothyroxine Sodium) 25 Mcg Tab 25 Mcg PO DAILY Allopurinol 100 Mg Tab 100 Mg PO DAILY Metformin (Metformin HCl) 1,000 Mg Tab 1,000 Mg PO BIDPC With meals Review of Systems General / Constitutional: No: Fever, Chills Eyes: No: Diploplia, Blurred Vision HENT: No: Headaches, Vertigo Cardiovascular: Positive: Dyspnea on exertion, Edema, No: Chest Pain or Discomfort Respiratory: Positive: Shortness of Breath, Orthopnea Gastrointestinal: No: Vomiting, Diarrhea Genitourinary: No: Urgency Neurologic: Positive: Weakness Psychiatric: No: Anxiety Hematologic/Lymphatic: No: Easy Bruising Physical Exam Narrative GENERAL: Chronically ill-appearing male oxygen saturation is 93% SKIN: Focused skin assessment warm/dry. HEAD: Atraumatic. Normocephalic. EYES: Pupils equal and round. No scleral icterus. No injection or drainage. ENT: No nasal bleeding or discharge. Mucous membranes pink and moist. NECK: Trachea midline. No JVD. CARDIOVASCULAR: Regular rate and rhythm. No murmur appreciated. RESPIRATORY: He is in mild respiratory distress. Diminished breath sounds bilaterally GASTROINTESTINAL: Abdomen soft, it is distended. It is nontender, Hepatic and splenic margins not palpable. MUSCULOSKELETAL: No obvious deformities. No clubbing. No cyanosis. Bilateral pedal edema. NEUROLOGICAL: Awake and alert. No obvious cranial nerve deficits. Motor grossly within normal limits. Normal speech. PSYCHIATRIC: Appropriate mood and affect; insight and judgment normal. Data Data Last Documented VS Vital Signs Date Time Temp Pulse Resp B/P (MAP) Pulse Ox O2 Delivery O2 Flow Rate FiO2 08/28/17 14:48 97.4 95 15 115/75 (88) 94 Orders Orders Electrocardiogram (08/28/17 15:07) Complete Blood Count With Diff (08/28/17 15:07) Comprehensive Metabolic Panel (08/28/17:07) Troponin I (08/28/17 15:07) B-Type Natriuretic Peptide (08/28/17 15:07) Lipase (08/28/17 15:07) Urinalysis - C+S If Indicated (08/28/17 15:07) Chest, Single Ap (08/28/17 15:07) Furosemide Inj (Lasix Inj) (08/28/17 15:15) Furosemide Inj (Lasix Inj) (08/28/17 15:45) Labs Laboratory Tests Test 08/28/17 15:20 Sodium Level 131 MEQ/L Potassium Level 4.5 MEQ/L Chloride Level 95 MEQ/L MDM Medical Decision Making Medical Screen Exam Complete: Yes Emergency Medical Condition: Yes Medical Record Reviewed: Yes Differential Diagnosis Differential includes CHF exacerbation, anasarca, electrolyte imbalance Narrative Course . EKG shows atrial fibrillation. The configuration of the QRS complex is unchanged from previous tracing Jakub Jung MD Aug 28, 2017 15:14
[2017-08-28] MEDS ORDERED: FUROSEMIDE 40 MG/4 ML VIAL IV PUSH ONE (15:15)
[2017-08-28 15:40] LABS: CHLORIDE 95 MEQ/L (98-107); POTASSIUM 4.5 MEQ/L (3.5-5.1); SODIUM (NA) 131 MEQ/L (136-145)
[2017-08-28 15:44] LABS: AUTOMATED NEUTROPHIL # 6.2 TH/MM3 (1.8-7.7); BASOPHIL % 0.6 % (0.0-2.0); EOSINOPHIL # 0.1 TH/MM3 (0-0.4); EOSINOPHIL % 0.9 % (0.0-4.0); HEMATOCRIT 34.9 % (39.0-51.0); HEMO FLAGS DIFF FINAL; LYMPH % 12.1 % (9.0-44.0); LYMPHOCYTE # 0.9 TH/MM3 (1.0-4.8); MEAN CELL VOLUME 87.3 FL (80.0-100.0); MEAN CORPUSCULAR HEMOGLOBIN 28.1 PG (27.0-34.0); MEAN CORPUSCULAR HGB CONC 32.2 % (32.0-36.0); NEUT % 80.4 % (16.0-70.0); PLATELET COUNT 293 TH/MM3 (150-450); WHITE BLOOD COUNT 7.7 TH/MM3 (4.0-11.0)
[2017-08-28 15:45] LABS: ANION GAP 13 MEQ/L (5-15); BICARBONATE 23.1 MEQ/L (21.0-32.0); BLOOD UREA NITROGEN 18 MG/DL (7-18)
[2017-08-28] MEDS ORDERED: FUROSEMIDE 20 MG/2 ML VIAL IV PUSH ONE (15:45)
[2017-08-28 15:48] LABS: ALT (GPT) 25 U/L (12-78); AST (GOT) 13 U/L (15-37); GLOMERULAR FILTRATION RATE 65 ML/MIN (>89)
[2017-08-28 15:50] LABS: TOTAL BILIRUBIN ADULT 0.7 MG/DL (0.2-1.0)
[2017-08-28 15:51] LABS: ALKALINE PHOSPHATASE 55 U/L (45-117)
--- NOTE | 2017-08-28 15:52 | RADRPT ---
EXAM DATE/TIME: 08/28/2017 15:21 [facility] COMPARISON: CHEST SINGLE AP, August 14, 2017, 17:27. INDICATIONS : Shortness of breath. MEDICAL HISTORY : Hypertension. Coronary artery disease. SURGICAL HISTORY : Cardiac catheterization. Spinal chord stimulator. Pain pump. ENCOUNTER: Initial ACUITY: 1 day PAIN SCORE: 0/10 LOCATION: Bilateral chest FINDINGS: A single portable frontal view the chest shows multiple electronic devices partially obscuring the lo wer chest. A graduated stimulating device overlies the spine. Hypoinflation. Bibasilar consolidations more pronounced on the left. Tiny right effusion suspected. The heart is normal in size. CONCLUSION: 1. Bibasilar infiltrates with tiny right effusion. Roman Gonsalves Jr., MD on August 28, 2017 at 15:50 Board Certified Radiologist. This report was verified electronically.
--- NOTE | 2017-08-28 16:56 | PD ---
Physical Exam Narrative Received sign out from previous team to follow up with labs and admit. 77yo M with nonischemic cardiomyopathy with lifevest on, recent cath Aug 14 that showed EF of 20-25% here with worsening sob. Said he is unable to lie down and has been sob since his heart attack. Denies any fever, cough, chest pain. Labs reviewed, no leukocytosis. H/H low at 11./34.9 but at baseline. BNP elevated at 1124. Troponin elevated at 0.25, pt has no chest pain, thinks this is from his CHF. CXR showed bibasilar infiltrates with tiny right effusion. I reviewed the CXR, appears to be fluid overload, pt has no fever or cough, do not think this is pneumonia. Bilateral crackles. Graphic Editor Dr. Oneill. Pt is saturating well at 95% on RA. Pt given lasix IV by previous team and just now had about 350cc of urine. Discussed with Dr. Dalton and accepted to his service. Data Data Last Documented VS Vital Signs Date Time Temp Pulse Resp B/P (MAP) Pulse Ox O2 Delivery O2 Flow Rate FiO2 08/28/17 16:17 108 18 92/78 (83) 95 Room Air 08/28/17 14:48 97.4 Orders Orders Electrocardiogram (08/28/17 15:07) Complete Blood Count With Diff (08/28/17 15:07) Comprehensive Metabolic Panel (08/28/17 15:07) Troponin I (08/28/17 15:07) B-Type Natriuretic Peptide (08/28/17 15:07) Lipase (08/28/17 15:07) Urinalysis - C+S If Indicated (08/28/17 15:07) Chest, Single Ap (08/28/17 15:07) Furosemide Inj (Lasix Inj) (08/28/17 15:15) Furosemide Inj (Lasix Inj) (08/28/17 15:45) Admit Order (Ed Use Only) (08/28/17 17:14) Labs Laboratory Tests Test 08/28/17 15:20 08/28/17 17:10 White Blood Count 7.7 TH/MM3 Red Blood Count 4.00 MIL/MM3 Hemoglobin 11.3 GM/DL Hematocrit 34.9 % Mean Corpuscular Volume 87.3 FL Mean Corpuscular Hemoglobin 28.1 PG Mean Corpuscular Hemoglobin Concent 32.2 % Red Cell Distribution Width 15.0 % Platelet Count 293 TH/MM3 Mean Platelet Volume 7.9 FL Neutrophils (%) (Auto) 80.4 % Lymphocytes (%) (Auto) 12.1 % Monocytes (%) (Auto) 6.0 % Eosinophils (%) (Auto) 0.9 % Basophils (%) (Auto) 0.6 % Neutrophils # (Auto) 6.2 TH/MM3 Lymphocytes # (Auto) 0.9 TH/MM3 Monocytes # (Auto) 0.5 TH/MM3 Eosinophils # (Auto) 0.1 TH/MM3 Basophils # (Auto) 0.0 TH/MM3 CBC Comment DIFF FINAL Differential Comment Blood Urea Nitrogen 18 MG/DL Creatinine 1.10 MG/DL Random Glucose 146 MG/DL Total Protein 6.7 GM/DL Albumin 3.6 GM/DL Calcium Level 8.6 MG/DL Alkaline Phosphatase 55 U/L Aspartate Amino Transf (AST/SGOT) 13 U/L Alanine Aminotransferase (ALT/SGPT) 25 U/L Total Bilirubin 0.7 MG/DL Sodium Level 131 MEQ/L Potassium Level 4.5 MEQ/L Chloride Level 95 MEQ/L Carbon Dioxide Level 23.1 MEQ/L Anion Gap 13 MEQ/L Estimat Glomerular Filtration Rate 65 ML/MIN Troponin I 0.25 NG/ML B-Type Natriuretic Peptide 1124 PG/ML Lipase 85 U/L Urine Collection Type CLEAN CATCH Urine Color YELLOW Urine Turbidity CLEAR Urine pH 6.0 Urine Specific [place] 1.010 Urine Protein NEG mg/dL Urine Glucose (UA) NEG mg/dL Urine Ketones NEG mg/dL Urine Occult Blood NEG Urine Nitrite NEG Urine Bilirubin NEG Urine Leukocyte Esterase NEG Urine RBC 0-3 /hpf Urine Squamous Epithelial Cells 0-5 /hpf Urine Amorphous Sediment FEW Microscopic Urinalysis Comment CULT NOT INDICATED Urine Collection Time 1710 MDM Supervised Visit with JORDAN: No Diagnosis Primary Impression: CHF exacerbation Qualified Codes: I50.23 - Acute on chronic systolic (congestive) heart failure Admitting Information Admitting Physician Requests: it Dorys Griggs DO Aug 28, 2017 16:56
[2017-08-28 17:20] LABS: BLOOD, URINE NEG (NEG); GLUCOSE,URINE NEG (NEG); KETONE, URINE NEG (NEG); METHOD OF COLLECTION CLEAN CATCH; NITRITE,URINE NEG (NEG); URINE COLOR YELLOW (YELLW/STRAW)
[2017-08-28 17:37] LABS: COMMENT (UR) CULT NOT INDICATED; COMMENT2 (UR) MUCOUS PRESENT; CULTURE IF INDICATED CULT NOT INDICATED; RBC, URINE 0-3 /hpf (0-3); SQUAMOUS EPITHELIAL CELL URINE 0-5 /hpf (0-5)
--- NOTE | 2017-08-28 19:44 | HHI.HP ---
HPI Service [facility] Primary Care Physician Alex Ellison MD Admission Diagnosis CHF exacerbation Diagnoses: Chief Complaint: shortness of breath Travel History International Travel<30 Days: No Contact w/Intl Traveler <30 Da: No Traveled to Known Affected Are: No History of Present Illness 77 y/o WM being admitted for acute CHF exacerbation. Patient was in his usual state of health until about a few days ago when he began developing a gradual onset of shortness of breath along with new onset lower extremity edema. Reports that the shortness of breath would would worsen with lying down, initially would improve with repositioning but then would recur again. When he was seen by his home health nurse today, he was then prompted to the emergency room given some abdominal distention that she had noted which was unusual for him. Patient denies having any nausea vomiting chest pain or lightheadedness. He states that his lines up his medications and that she is pretty good about being compliant with instructions. Patient states that the Lasix that he takes his only given to him if his blood pressure is "okay". Patient recently underwent cardiac catheterization and underwent balloon angioplasty with no further stenting. He had an EF of 20-25% recently documented. Review of Systems Except as stated in HPI: all other systems reviewed are Neg Past Family Social History Past Medical History Hypertension, sleep apnea, anxiety, acid reflux, gout, hypothyroidism, diabetes Past Surgical History VAD placement, morphine pump, right hand surgery and nose surgery, cholecystectomy Allergies: Coded Allergies: MRI PRECAUTION (Verified Adverse Reaction, Severe, SPINAL STIMULATOR, ) DML 08/13/16, Family History Diabetes Social History Smoked from his teenage years and his 20s, has been abstinent since Physical Exam Vital Signs Vital Signs Date Time Temp Pulse Resp B/P (MAP) Pulse Ox O2 Delivery O2 Flow Rate FiO2 08/28/17 19:01 96.2 87 18 103/69 (80) 97 08/28/17 18:47 93 18 104/78 (87) 96 08/28/17 17:16 87 18 102/76 (85) 95 Room Air 11/13/17 16:17 108 18 92/78 (83) 95 Room Air 08/28/17 14:48 97.4 95 15 115/75 (88) 94 Physical Exam VS: Afebrile GENERAL: Elderly white male, lying in bed, awake, alert, no acute distress, slightly pale SKIN: Warm and dry. EYES: No scleral icterus. No injection or drainage. ENT: No nasal bleeding or discharge. Mucous membranes pink and moist. CARDIOVASCULAR: Regular rate and rhythm. no murmurs RESPIRATORY: No accessory muscle use. Clear to auscultation. Diminished breath sounds in bilateral bases with no servando labored breathing GASTROINTESTINAL: Mild abdominal distention, soft abdomen otherwise, nontender Extremities: No clubbing, cyanosis, does have mild to moderate 1+ pitting edema bilateral lower extremities MUSCULOSKELETAL: grossly intact ROM with adequate muscle bulk and tone all 4 extremities NEUROLOGICAL: Awake and alert. No obvious cranial nerve deficits. No facial droop nor slurred speech noted. PSYCHIATRIC: Appropriate mood and affect; insight and judgment normal. Laboratory Laboratory Tests Test 08/28/17 15:20 08/28/17 17:10 White Blood Count 7.7 Red Blood Count 4.00 Hemoglobin 11.3 Hematocrit 34.9 Mean Corpuscular Volume 87.3 Mean Corpuscular Hemoglobin 28.1 Mean Corpuscular Hemoglobin Concent 32.2 Red Cell Distribution Width 15.0 Platelet Count 293 Mean Platelet Volume 7.9 Neutrophils (%) (Auto) 80.4 Lymphocytes (%) (Auto) 12.1 Monocytes (%) (Auto) 6.0 Eosinophils (%) (Auto) 0.9 Basophils (%) (Auto) 0.6 Neutrophils # (Auto) 6.2 Lymphocytes # (Auto) 0.9 Monocytes # (Auto) 0.5 Eosinophils # (Auto) 0.1 Basophils # (Auto) 0.0 CBC Comment DIFF FINAL Differential Comment Blood Urea Nitrogen 18 Creatinine 1.10 Random Glucose 146 Total Protein 6.7 Albumin 3.6 Calcium Level 8.6 Alkaline Phosphatase 55 Aspartate Amino Transf (AST/SGOT) 13 Alanine Aminotransferase (ALT/SGPT) 25 Total Bilirubin 0.7 Sodium Level 131 Potassium Level 4.5 Chloride Level 95 Carbon Dioxide Level 23.1 Anion Gap 13 Estimat Glomerular Filtration Rate 65 Troponin I 0.25 B-Type Natriuretic Peptide 1124 Lipase 85 Urine Collection Type CLEAN CATCH Urine Color YELLOW Urine Turbidity CLEAR Urine pH 6.0 Urine Specific [place] 1.010 Urine Protein NEG Urine Glucose (UA) NEG Urine Ketones NEG Urine Occult Blood NEG Urine Nitrite NEG Urine Bilirubin NEG Urine Leukocyte Esterase NEG Urine RBC 0-3 Urine Squamous Epithelial Cells 0-5 Urine Amorphous Sediment FEW Microscopic Urinalysis Comment CULT NOT INDICATED Urine Collection Time 1710 Result Diagram: 08/28/17 1520 08/28/17 1520 Caprini VTE Risk Assessment Caprini VTE Risk Assessment: Mod/High Risk (score >= 2) Caprini Risk Assessment Model Point Value = 1 Point Value = 2 Point Value = 3 Point Value = 5 Age 41-60 Minor surgery BMI > 25 kg/m2 Swollen legs Varicose veins or History of unexplained or recurrent spontaneous Oral contraceptives or hormone replacement Sepsis (< 1 month) Serious lung disease, including pneumonia (< 1 month) Abnormal pulmonary function Acute myocardial infarction Congestive heart failure (< 1 month) History of inflammatory bowel disease Medical patient at bed rest Age 61-74 Arthroscopic surgery Major open surgery (> 45 min) Laparoscopic surgery (> 45 min) Malignancy Confined to bed (> 72 hours) Immobilizing plaster cast Central venous access Age >= 75 History of VTE Family history of VTE Factor V Leiden Prothrombin [id number] Lupus anticoagulant Anticardiolipin antibodies Elevated serum homocysteine Heparin-induced thrombocytopenia Other congenital or acquired thrombophilia Stroke (< 1 month) Elective arthroplasty Hip, pelvis, or leg fracture Acute spinal cord injury (< 1 month) Prophylaxis Regimen Total Risk Factor Score Risk Level Prophylaxis Regimen 0-1 Low Early ambulation 2 Moderate Order ONE of the following: *Sequential Compression Device (SCD) *Heparin 5000 units SQ BID 3-4 Higher Order ONE of the following medications: *Heparin 5000 units SQ TID *Enoxaparin/Lovenox 40 mg SQ daily (WT < 150 kg, CrCl > 30 mL/min) *Enoxaparin/Lovenox 30 mg SQ daily (WT < 150 kg, CrCl > 10-29 mL/min) *Enoxaparin/Lovenox 30 mg SQ BID (WT < 150 kg, CrCl > 30 mL/min) AND/OR *Sequential Compression Device (SCD) 5 or more Highest Order ONE of the following medications: *Heparin 5000 units SQ TID (Preferred with Epidurals) *Enoxaparin/Lovenox 40 mg SQ daily (WT < 150 kg, CrCl > 30 mL/min) *Enoxaparin/Lovenox 30 mg SQ daily (WT < 150 kg, CrCl > 10-29 mL/min) *Enoxaparin/Lovenox 30 mg SQ BID (WT < 150 kg, CrCl > 30 mL/min) AND *Sequential Compression Device (SCD) Assessment and Plan Assessment and Plan Acute systolic CHF exacerbation - IV Lasix twice a day - Continue home Coreg - telemetry - intake and output - adding on velma-I and spironolactone - on lifevest currently - cards consult given recent cath - starting low dose lisinopril and spironolactone - I independently reviewed the chest x-ray which shows moderate diffuse pulmonary edema with possible right sided pleural effusion - May be worth considering ultrasound guided thoracentesis if dyspnea remains very persistent by tomorrow - I suspect elevated troponin simply from heart strain and not ACS, will therefore not trend them as the patient does not have angina - fluid restriction hyponatremia - likely from CHF - fluid restriction Hypertension - Resume home medications of terazosin when BP better tolerates CAD - Continue home aspirin and Lipitor chronic abd conditions - continue home dicyclomine, protonix, carafate anxiety - continue home xanax, trazodone diabetes - hold home metformin and LDSS w/ accuchecks - home potassium gout - home allopurinol Physician Certification 2 Midnight Certification Type: Admission for Inpatient Services Order for Inpatient Services The services are ordered in accordance with Medicare regulations or non- Medicare payer requirements, as applicable. In the case of services not specified as inpatient-only, they are appropriately provided as inpatient services in accordance with the 2-midnight benchmark. Estimated LOS (days): 2 2 days is the estimated time the patient will need to remain in the hospital, assuming treatment plan goals are met and no additional complications. Post-Hospital Plan: Home Naseem Dalton MD Aug 28, 2017 19:44
[2017-08-28] MEDS ORDERED: DEXTROSE 50% IN WATER 50 ML VIAL(D50) IV PUSH PRN (19:45)
[2017-08-28] MEDS ORDERED: GLUCAGON 1 MG/ML VIAL OTHER PRN (19:45)
[2017-08-28] MEDS ORDERED: ACETAMINOPHEN/HYDROcodone 325 MG/10 MG TAB PO PRN (19:45)
[2017-08-28] MEDS ORDERED: ENOXAPARIN SODIUM 30 MG/0.3 ML SYRINGE SQ SCH (20:00)
[2017-08-28] MEDS: INSULIN NovoLIN REGULAR SUPPLEMENTAL SCALE SQ SCH (21:00)
[2017-08-28] MEDS: BUDESONIDE-FORMOTEROL 160/4.5 MCG INHALER INH SCH (21:20)
[2017-08-28] MEDS: ATORVASTATIN 40 MG TAB PO SCH (21:21)
[2017-08-28] MEDS: MAGNESIUM OXIDE 400 MG TAB PO SCH (21:21)
[2017-08-28] MEDS: CARVEDILOL 3.125 MG TAB PO SCH (21:21)
[2017-08-28] MEDS: traZODone HCL 50 MG TAB PO SCH (21:21)
[2017-08-28] MEDS: DICYCLOMINE HCL 20 MG TAB PO SCH (21:21)
[2017-08-28] MEDS: LISINOPRIL 5 MG TAB PO SCH (21:25)
[2017-08-28] MEDS: SPIRONOLACTONE 25 MG TAB PO SCH (21:26)
[2017-08-29] VITALS (9 sets, daily range): BP systolic 95–110; BP diastolic 57–82; PULSE 69–98; RESP 18–21; TEMP 96–97.5; O2SAT 91–99
[2017-08-29] MEDS: LEVOTHYROXINE SODIUM 25 MCG TAB PO SCH (05:49)
[2017-08-29 06:46] LABS: POTASSIUM 4.4 MEQ/L (3.5-5.1)
[2017-08-29 06:51] LABS: BICARBONATE 24.6 MEQ/L (21.0-32.0)
[2017-08-29] MEDS: INSULIN NovoLIN REGULAR SUPPLEMENTAL SCALE SQ SCH ×4 (08:00→21:47)
[2017-08-29] MEDS ORDERED: FUROSEMIDE 20 MG/2 ML VIAL IV PUSH SCH (09:00)
[2017-08-29] MEDS: LISINOPRIL 5 MG TAB PO SCH (09:00)
[2017-08-29] MEDS: ALPRAZolam 0.5 MG TAB PO PRN ×2 (09:52→21:46)
[2017-08-29] MEDS: BUDESONIDE-FORMOTEROL 160/4.5 MCG INHALER INH SCH ×2 (09:53→21:45)
[2017-08-29] MEDS: MAGNESIUM OXIDE 400 MG TAB PO SCH ×2 (09:54→21:45)
[2017-08-29] MEDS: LEVOFLOXACIN 750 MG TAB PO SCH (09:54)
[2017-08-29] MEDS: POTASSIUM CHLORIDE 10 MEQ CONTROLLED RELEASE TAB PO SCH (09:54)
[2017-08-29] MEDS: PANTOPRAZOLE SOD 40 MG DELAYED RELEASE TAB PO SCH (09:55)
[2017-08-29] MEDS: CHOLECALCIFEROL (VIT D3) 1000 UNIT TAB PO SCH (09:55)
[2017-08-29] MEDS: ASPIRIN 81 MG CHEW TAB PO SCH (09:56)
[2017-08-29] MEDS: SPIRONOLACTONE 25 MG TAB PO SCH (09:56)
[2017-08-29] MEDS: DICYCLOMINE HCL 20 MG TAB PO SCH ×4 (09:56→21:46)
[2017-08-29] MEDS: CARVEDILOL 3.125 MG TAB PO SCH ×2 (09:56→21:45)
[2017-08-29] MEDS: ALLOPURINOL 100 MG TAB PO SCH (09:57)
[2017-08-29] MEDS: SUCRALFATE 1 GM TAB PO SCH ×3 (12:14→20:44)
--- NOTE | 2017-08-29 14:25 | EKG ---
Date Performed: 08/28/2017 Time Performed: 15:38:22 PTAGE: 77 years EKG: ATRIAL FIBRILLATION WITH ABERRANT CONDUCTION OR VENTRICULAR PREMATURE COMPLEXES INTRAVENTRI CULAR CONDUCTION DELAY ANTEROSEPTAL MYOCARDIAL INFARCTION ABNORMAL ECG PREVIOUS TRACING : 08/15/2017 05.38 Compared to prior tracing no significant change DOCTOR: Rashid Pearl Interpretating Date/Time 08/29/2017 14:18:29
--- NOTE | 2017-08-29 15:47 | HHI.PR ---
Subjective Remarks Patient is stable on room air. He states he has low energy. He states the swelling in his legs has not improved much. He states he voided a lot yesterday but not much today. He has an appointment to see his fine patcher Dr. Tripp on Monday. Patient is tired of wearing the LifeVest. Patient states that he is short of breath with exertion and this is unchanged from yesterday. EKG on admission showed atrial fibrillation. Telemetry shows atrial fibrillation with controlled rate. Objective Vitals Vital Signs Date Time Temp Pulse Resp B/P (MAP) Pulse Ox O2 Delivery O2 Flow Rate FiO2 08/29/17 15:00 79 08/29/17 12:00 96.0 86 21 109/82 (91) 99 08/29/17 08:00 96.0 97 18 95/75 (82) 95 08/29/17 07:00 97 08/29/17 04:00 97.5 73 18 101/66 (78) 91 08/29/17 00:00 96.9 69 18 110/57 (74) 95 08/29/17 00:00 96.9 69 18 110/57 (74) 95 08/28/17 23:00 88 08/28/17 20:00 96.9 94 18 90/65 (73) 93 08/28/17 19:01 96.2 87 18 103/69 (80) 97 08/28/17 18:47 93 18 104/78 (87) 96 08/28/17 17:16 87 18 102/76 (85) 95 Room Air 08/28/17 16:17 108 18 92/78 (83) 95 Room Air I/O 08/28/17 08/28/17 08/28/17 08/29/17 08/29/17 08/29/17 07:00 15:00 23:00 07:00 15:00 23:00 Intake Total 360 ml Output Total 750 ml 400 ml 200 ml Balance -750 ml -40 ml -200 ml Intake Oral 360 ml Output Urine Total 750 ml 400 ml 200 ml # Voids 1 # Bowel Movements 0 Result Diagram: 08/28/17 1520 08/29/17 0615 Objective Remarks GENERAL: Well-nourished, well-developed patient. SKIN: Warm and dry. HEAD: Normocephalic. EYES: No scleral icterus. No injection or drainage. NECK: Supple, trachea midline. No JVD or lymphadenopathy. CARDIOVASCULAR: Regular rate and rhythm without murmurs, gallops, or rubs. RESPIRATORY: Breath sounds equal bilaterally. Lungs are clear to auscultation without crackles. No accessory muscle use. GASTROINTESTINAL: Abdomen soft, non-tender, nondistended. EXTREMITIES: 2+ pitting edema of the calves but does not extend to his thighs. NEUROLOGICAL: Awake, alert, and oriented x 3. Non-focal. A/P Problem List: (1) Acute on chronic systolic (congestive) heart failure ICD Code: I50.23 - Acute on chronic systolic (congestive) heart failure (2) DM type 2 (diabetes mellitus, type 2) ICD Code: E11.9 - Type 2 diabetes mellitus without complications (3) Ischemic cardiomyopathy ICD Code: I25.5 - Ischemic cardiomyopathy (4) Hyponatremia ICD Code: E87.1 - Hypo-osmolality and hyponatremia Assessment and Plan -Acute on chronic systolic CHF. Patient had an NSTEMI 2 weeks ago and underwent angioplasty of the LAD. EF 20% and he was given a LifeVest. Over the past 4-5 days has had increasing swelling of his lower extremities as well as exertional dyspnea. Symptoms not much improved overnight. Creatinine stable. Will increase Lasix to 40 mg IV twice a day. Continue Coreg, lisinopril, spironolactone. -Ischemic cardiomyopathy, Coronary artery disease status post NSTEMI with angioplasty of the LAD 2 weeks ago. Continue aspirin. Resume Plavix as per recent cardiology note he was supposed to be on that however it is not reported on his home medications. Continue Lipitor. Continue LifeVest. Mild troponin elevation is likely due to his recent and STEMI as troponin was greater than 40 at that time. -Atrial fibrillation. This was noted during his last admission but apparently converted to sinus rhythm. EKG on admission showing A. fib and currently in A. fib on telemetry. Continue Coreg twice a day. Continue aspirin and Plavix. Will defer decision of anticoagulation to his fine patcher. He has an appointment with Dr. Tripp on Monday. -Type 2 diabetes. Continue sliding scale insulin. -Hyponatremia, hypervolemic. Continue fluid restriction. Repeat BMP in the morning. -DVT prophylaxis with SCDs. Marisol Herron MD Aug 29, 2017 15:47
[2017-08-29] MEDS: CLOPIDOGREL 75 MG TAB PO SCH (18:38)
[2017-08-29] MEDS: FUROSEMIDE 20 MG/2 ML VIAL IV PUSH SCH (18:39)
[2017-08-29] MEDS: ATORVASTATIN 40 MG TAB PO SCH (21:45)
[2017-08-29] MEDS: traZODone HCL 50 MG TAB PO SCH (21:46)
[2017-08-30] VITALS (8 sets, daily range): BP systolic 99–114; BP diastolic 75–91; PULSE 84–100; RESP 16–20; TEMP 95.4–98.8; O2SAT 90–99
[2017-08-30] MEDS: LEVOTHYROXINE SODIUM 25 MCG TAB PO SCH (05:24)
[2017-08-30 07:03] LABS: POTASSIUM 4.5 MEQ/L (3.5-5.1)
[2017-08-30] MEDS: ASPIRIN 81 MG CHEW TAB PO SCH (08:58)
[2017-08-30] MEDS: LEVOFLOXACIN 750 MG TAB PO SCH (08:58)
[2017-08-30] MEDS: INSULIN NovoLIN REGULAR SUPPLEMENTAL SCALE SQ SCH ×5 (08:58→22:13)
[2017-08-30] MEDS: ALLOPURINOL 100 MG TAB PO SCH (08:59)
[2017-08-30] MEDS: MAGNESIUM OXIDE 400 MG TAB PO SCH ×2 (08:59→22:13)
[2017-08-30] MEDS: CHOLECALCIFEROL (VIT D3) 1000 UNIT TAB PO SCH (08:59)
[2017-08-30] MEDS: DICYCLOMINE HCL 20 MG TAB PO SCH ×4 (08:59→22:13)
[2017-08-30] MEDS: LISINOPRIL 5 MG TAB PO SCH (08:59)
[2017-08-30] MEDS: PANTOPRAZOLE SOD 40 MG DELAYED RELEASE TAB PO SCH (08:59)
[2017-08-30] MEDS: SPIRONOLACTONE 25 MG TAB PO SCH (08:59)
[2017-08-30] MEDS: CLOPIDOGREL 75 MG TAB PO SCH (08:59)
[2017-08-30] MEDS: POTASSIUM CHLORIDE 10 MEQ CONTROLLED RELEASE TAB PO SCH (08:59)
[2017-08-30] MEDS: CARVEDILOL 3.125 MG TAB PO SCH ×2 (09:00→22:12)
[2017-08-30] MEDS: BUDESONIDE-FORMOTEROL 160/4.5 MCG INHALER INH SCH ×2 (09:00→22:14)
[2017-08-30] MEDS: FUROSEMIDE 20 MG/2 ML VIAL IV PUSH SCH (09:00)
[2017-08-30] MEDS: SUCRALFATE 1 GM TAB PO SCH ×3 (09:09→22:23)
[2017-08-30] MEDS ORDERED: TOLVAPTAN 15 MG TAB PO ONE (09:45)
--- NOTE | 2017-08-30 09:47 | HHI.PR ---
Subjective Remarks Patient feels the swelling in his legs has improved. He states he ambulated a bit this morning but he felt that his balance was unsteady. Discuss with his . Patient previously receiving home health care. They are agreeable to [facility] facility if recommended per PT evaluation. Objective Vitals Vital Signs Date Time Temp Pulse Resp B/P (MAP) Pulse Ox O2 Delivery O2 Flow Rate FiO2 08/30/17 04:00 96.0 84 20 114/87 (96) 96 08/30/17 00:00 96.0 85 18 99/78 (85) 90 08/29/17 23:00 90 08/29/17 20:00 96.0 98 20 104/78 (87) 96 08/29/17 16:00 96.0 78 20 107/70 (82) 97 08/29/17 15:00 79 08/29/17 12:00 96.0 86 21 109/82 (91) 99 I/O 08/29/17 08/29/17 08/29/17 08/30/17 08/30/17 08/30/17 07:00 15:00 23:00 07:00 15:00 23:00 Intake Total 360 ml 620 ml 240 ml Output Total 400 ml 200 ml 600 ml Balance -40 ml -200 ml 20 ml 240 ml Intake Oral 360 ml 620 ml 240 ml Output Urine Total 400 ml 200 ml 600 ml # Voids 2 # Bowel Movements 0 Result Diagram: 08/28/17 1520 08/30/17 0515 Objective Remarks GENERAL: Well-nourished, well-developed patient. SKIN: Warm and dry. HEAD: Normocephalic. EYES: No scleral icterus. No injection or drainage. NECK: Supple, trachea midline. No JVD or lymphadenopathy. CARDIOVASCULAR: Regular rate and rhythm without murmurs, gallops, or rubs. RESPIRATORY: Breath sounds equal bilaterally. Lungs are clear to auscultation without crackles. No accessory muscle use. GASTROINTESTINAL: Abdomen soft, non-tender, nondistended. EXTREMITIES: 1+ pitting edema of the calves, improved. NEUROLOGICAL: Awake, alert, and oriented x 3. Non-focal. A/P Problem List: (1) Acute on chronic systolic (congestive) heart failure ICD Code: I50.23 - Acute on chronic systolic (congestive) heart failure (2) DM type 2 (diabetes mellitus, type 2) ICD Code: E11.9 - Type 2 diabetes mellitus without complications (3) Ischemic cardiomyopathy ICD Code: I25.5 - Ischemic cardiomyopathy (4) Hyponatremia ICD Code: E87.1 - Hypo-osmolality and hyponatremia Assessment and Plan -Acute on chronic systolic CHF. Patient had an NSTEMI 2 weeks ago and underwent angioplasty of the LAD. EF 20% and he was given a LifeVest. Over the past 4-5 days has had increasing swelling of his lower extremities as well as exertional dyspnea. Symptoms improve with decreasing pedal edema, stable on room air. Creatinine stable. Sodium remains low. I will give him Samsca 15 mg by mouth 1. The fluid restriction and DC Lasix IV. Continue Coreg, lisinopril, spironolactone. Discussed with patient and to limit fluid intake to 1500 mL at home, eat low-sodium diet. He will likely need higher dose of Lasix at home upon discharge she was previously taking 20 mg by mouth twice a day, apparently his blood pressure can tend to run somewhat low and so the does not give him the Lasix if his systolic is less than 90. -Ischemic cardiomyopathy, Coronary artery disease status post NSTEMI with angioplasty of the LAD 2 weeks ago. Continue aspirin. Resume Plavix as per recent cardiology note he was supposed to be on that however it is not reported on his home medications. Continue Lipitor. Continue LifeVest. Mild troponin elevation is likely due to his recent and STEMI as troponin was greater than 40 at that time. -Atrial fibrillation. This was noted during his last admission but apparently converted to sinus rhythm. EKG on admission showing A. fib and currently in A. fib on telemetry. Continue Coreg twice a day. Continue aspirin and Plavix. Will defer decision of anticoagulation to his commercial lines account manager. He has an appointment with Dr. Tripp on Monday. -Type 2 diabetes. Continue sliding scale insulin. -Hyponatremia, hypervolemic. Samsca 50 mg 1, left fluid restriction. Repeat BMP in the morning. -Generalized weakness. Consult physical therapy. -DVT prophylaxis with SCDs. Discharge Planning Home health care versus [facility]dc facility. Marisol Herron MD Aug 30, 2017 09:47
[2017-08-30] MEDS: ATORVASTATIN 40 MG TAB PO SCH (22:12)
[2017-08-30] MEDS: traZODone HCL 50 MG TAB PO SCH (22:13)
[2017-08-30] MEDS: ALPRAZolam 0.5 MG TAB PO PRN (22:17)
[2017-08-31] VITALS: BP 103/80; PULSE 93; RESP 16; TEMP 95.5; O2SAT 95
[2017-08-31 04:00] VITALS: BP 95/81; PULSE 69; RESP 16; TEMP 96.6; O2SAT 98
[2017-08-31] MEDS: LEVOTHYROXINE SODIUM 25 MCG TAB PO SCH (05:34)
[2017-08-31 07:02] LABS: POTASSIUM 4.6 MEQ/L (3.5-5.1)
[2017-08-31 07:08] LABS: BICARBONATE 23.7 MEQ/L (21.0-32.0)
[2017-08-31] MEDS: INSULIN NovoLIN REGULAR SUPPLEMENTAL SCALE SQ SCH ×2 (07:53→13:03)
[2017-08-31 08:00] VITALS: BP 114/72; PULSE 78; RESP 20; TEMP 97; O2SAT 96
[2017-08-31] MEDS: SUCRALFATE 1 GM TAB PO SCH (08:00)
[2017-08-31] MEDS: BUDESONIDE-FORMOTEROL 160/4.5 MCG INHALER INH SCH (09:15)
[2017-08-31] MEDS: CHOLECALCIFEROL (VIT D3) 1000 UNIT TAB PO SCH (09:16)
[2017-08-31] MEDS: MAGNESIUM OXIDE 400 MG TAB PO SCH (09:16)
[2017-08-31] MEDS: LEVOFLOXACIN 750 MG TAB PO SCH (09:16)
[2017-08-31] MEDS: DICYCLOMINE HCL 20 MG TAB PO SCH ×2 (09:16→13:03)
[2017-08-31] MEDS: ASPIRIN 81 MG CHEW TAB PO SCH (09:16)
[2017-08-31] MEDS: PANTOPRAZOLE SOD 40 MG DELAYED RELEASE TAB PO SCH (09:16)
[2017-08-31] MEDS: POTASSIUM CHLORIDE 10 MEQ CONTROLLED RELEASE TAB PO SCH (09:16)
[2017-08-31] MEDS: ALLOPURINOL 100 MG TAB PO SCH (09:16)
[2017-08-31] MEDS: LISINOPRIL 5 MG TAB PO SCH (09:16)
[2017-08-31] MEDS: CARVEDILOL 3.125 MG TAB PO SCH (09:16)
[2017-08-31] MEDS: SPIRONOLACTONE 25 MG TAB PO SCH (09:17)
[2017-08-31] MEDS: CLOPIDOGREL 75 MG TAB PO SCH (09:17)
[2017-08-31] MEDS ORDERED: ALPR.5 PO (11:44)
[2017-08-31] MEDS ORDERED: FURO1TAB62 PO (11:44)
[2017-08-31] MEDS ORDERED: POTA10CA PO (11:44)
--- NOTE | 2017-08-31 11:44 | HHI.DS ---
Discharge Summary Admission Date Aug 28, 2017 at 17:15 Discharge Date: Aug 31, 2017 Admitting Diagnosis CHF exacerbation (1) Acute on chronic systolic (congestive) heart failure ICD Code: I50.23 - Acute on chronic systolic (congestive) heart failure Diagnosis: Principal (2) DM type 2 (diabetes mellitus, type 2) ICD Code: E11.9 - Type 2 diabetes mellitus without complications (3) Ischemic cardiomyopathy ICD Code: I25.5 - Ischemic cardiomyopathy (4) Hyponatremia ICD Code: E87.1 - Hypo-osmolality and hyponatremia Procedures None Brief History - From Admission 77 y/o WM being admitted for acute CHF exacerbation. Patient was in his usual state of health until about a few days ago when he began developing a gradual onset of shortness of breath along with new onset lower extremity edema. Reports that the shortness of breath would would worsen with lying down, initially would improve with repositioning but then would recur again. When he was seen by his home health nurse today, he was then prompted to the emergency room given some abdominal distention that she had noted which was unusual for him. Patient denies having any nausea vomiting chest pain or lightheadedness. He states that his lines up his medications and that she is pretty good about being compliant with instructions. Patient states that the Lasix that he takes his only given to him if his blood pressure is "okay". Patient recently underwent cardiac catheterization and underwent balloon angioplasty with no further stenting. He had an EF of 20-25% recently documented. CBC/BMP: 08/28/17 1520 08/31/17 0617 Significant Findings Laboratory Tests Test 08/28/17 15:20 08/28/17 17:10 08/29/17 06:15 08/30/17 05:15 Red Blood Count 4.00 MIL/MM3 (4.50-5.90) Hemoglobin 11.3 GM/DL (13.0-17.0) Hematocrit 34.9 % (39.0-51.0) Neutrophils (%) (Auto) 80.4 % (16.0-70.0) Lymphocytes # (Auto) 0.9 TH/MM3 (1.0-4.8) Random Glucose 146 MG/DL (74-106) 126 MG/DL (74-106) 164 MG/DL (74-106) Aspartate Amino Transf (AST/SGOT) 13 U/L (15-37) Sodium Level 131 MEQ/L (136-145) 129 MEQ/L (136-145) 129 MEQ/L (136-145) Chloride Level 95 MEQ/L (98-107) 93 MEQ/L (98-107) 93 MEQ/L (98-107) Estimat Glomerular Filtration Rate 65 ML/MIN (>89) 72 ML/MIN (>89) 72 ML/MIN (>89) Troponin I 0.25 NG/ML (0.02-0.05) B-Type Natriuretic Peptide 1124 PG/ML (0-100) Blood Urea Nitrogen 19 MG/DL (7-18) 24 MG/DL (7-18) Test 08/31/17 06:17 Blood Urea Nitrogen 30 MG/DL (7-18) Random Glucose 130 MG/DL (74-106) Sodium Level 127 MEQ/L (136-145) Chloride Level 91 MEQ/L (98-107) Estimat Glomerular Filtration Rate 59 ML/MIN (>89) Imaging Last Impressions Chest X-Ray 08/28/17 1507 Signed Impressions: Service Date/Time: Monday, August 28, 2017 15:21 - CONCLUSION: 1. Bibasilar infiltrates with tiny right effusion. Roman Gonsalves Jr., MD PE at Discharge GENERAL: Well-nourished, well-developed patient. SKIN: Warm and dry. HEAD: Normocephalic. EYES: No scleral icterus. No injection or drainage. NECK: Supple, trachea midline. No JVD or lymphadenopathy. CARDIOVASCULAR: Regular rate and rhythm without murmurs, gallops, or rubs. RESPIRATORY: Breath sounds equal bilaterally. Lungs are clear to auscultation without crackles. No accessory muscle use. GASTROINTESTINAL: Abdomen soft, non-tender, nondistended. EXTREMITIES: 1+ pitting edema of the calves, improved. NEUROLOGICAL: Awake, alert, and oriented x 3. Non-focal. Pt update on day of discharge Patient denies dyspnea although his feels that he is less confused when he wears the oxygen. Patient's pedal edema has improved. Urine output not being accurately recorded. Hospital Course Patient was admitted to the hospital and treated for acute on chronic systolic congestive heart failure. Patient had an NSTEMI 2 weeks ago and underwent angioplasty of the LAD. EF 20% and he was given a LifeVest. Patient's symptoms during this hospitalization consisted mainly of lower extremity edema and dyspnea. Chest x-ray was clear. Patient was diuresed with Lasix IV. He was also given 1 dose of Samsca assist sodium was low. We will continue Coreg, lisinopril, spironolactone. Discussed with patient and to limit fluid intake to 1500 mL at home, eat low-sodium diet. Patient will be discharged with higher dose of Lasix 40 mg twice a day to hold if systolic blood pressure less than 95, he was previously taking 20 mg by mouth twice a day. Patient was also noted to have atrial fibrillation on EKG. Rate was controlled. This was noted during his last admission but apparently converted to sinus rhythm. EKG on this admission showing A. fib and currently in A. fib on telemetry. Continue Coreg twice a day. Continue aspirin and Plavix. Will defer decision of anticoagulation to his licensed [employer] app[employer]. He has an appointment with Dr. Tripp tomorrow. -Hyponatremia, hypervolemic. This is chronic. Status post Samsca 50 mg 1 without much improvement. -Generalized weakness. He required significant assistance from physical therapy. He will benefit from group home facility which he and the are agreeable to. He has been accepted at [facility] rehabilitation. Pt Condition on Discharge: Stable Discharge Disposition: Discharge to SNF Discharge Time: > 30 minutes Discharge Instructions DIET: Follow Instructions for: Heart Healthy Diet Fluid Restrictions: 1500 ml Activities you can perform: Regular-No Restrictions Follow up Referrals: Cardiology - 09/01/17 with Angela Tripp MD SNF/[facility]/ with [facility] Changed Medications: Alprazolam (Xanax) 0.5 Mg Tab 0.5 MG PO BID PRN for ANXIETY, #20 TAB 0 Refills (Medication details modified) Furosemide (Lasix) 20 Mg Tab 40 MG PO BID for edema, #120 TAB 0 Refills (Changed from: 20 MG; BID MoWeFr; 60) Hold if SBP<95 Potassium Chloride ER (Potassium Chloride ER) 10 Meq Cap 20 MEQ PO DAILY for Electrolyte Replacement, #30 CAP 0 Refills (Changed from: 10 MEQ) Continued Medications: Allopurinol (Allopurinol) 100 Mg Tab 100 MG PO DAILY for Gout, #30 TAB 0 Refills Aspirin (Aspirin Low Strength) 81 Mg Chew 81 MG PO DAILY for cad, #30 EA 0 Refills Atorvastatin (Atorvastatin) 80 Mg Tab 80 MG PO HS for cad, #30 TAB 0 Refills Budesonide-Formoterol Inh (Symbicort Inh) 160-4.5 Mcg/Act Aero 1 PUFF INH Q12HR, #1 INHALER 0 Refills Carvedilol (Coreg) 3.125 Mg Tab 3.125 MG PO BID for cad, #60 TAB 0 Refills Cholecalciferol (Vitamin D-1000) 1,000 Unit Tab 2000 UNITS PO DAILY for Nutritional Supplement, #1 BOTTLE 0 Refills Dicyclomine (Dicyclomine) 20 Mg Tab 20 MG PO QID for Bowel Management, #120 TAB 0 Refills Hydrocodone-Acetaminophen (Hydrocodone-Acetaminophen) 10-325 mg Tab 1 TAB PO Q6H PRN for PAIN, TAB 0 Refills Krill Oil (Krill Oil) 1,000 Mg Cap 1000 MG PO BID, CAP Levothyroxine (Levothyroxine) 25 Mcg Tab 25 MCG PO DAILY for Thyroid, #30 TAB 0 Refills Magnesium Oxide (Magnesium Oxide) 500 Mg Tab 500 MG PO BID, TAB 0 Refills Metformin (Metformin) 1,000 Mg Tab 1000 MG PO BIDPC for Blood Sugar Management, #60 TAB 0 Refills With meals Pantoprazole (Pantoprazole) 40 Mg Tab 40 MG PO DAILY for Reflux, #30 TAB 0 Refills Sucralfate (Carafate) 1 Gm Tab 1 GM PO TID for Duodenal ulcer, #90 TAB 0 Refills On empty stomach Terazosin (Terazosin) 2 Mg Cap 2 MG PO HS, #30 CAP 0 Refills Trazodone (Trazodone) 100 Mg Tablet 150 MG PO HS for Control Depression, #30 TAB 0 Refills [Morphine Pump] () Marisol Herron MD Aug 31, 2017 11:44
[2017-08-31 12:00] VITALS: BP 102/75; PULSE 80; RESP 18; TEMP 97.2; O2SAT 94
== END 2017-08-31 15:10 | DRG 281 ==
LOC: PHED 14:43 → PHEDA 17:15 → PH3A 18:47
PROVIDERS: ADMIT Family Medicine; ATTEND Family Medicine
DX: I11.0 Hypertensive heart disease with heart failure (principal); I21.3 ST elevation (STEMI) myocardial infarction of unspecified site; E87.1 Hypo-osmolality and hyponatremia; I48.91 Unspecified atrial fibrillation; E11.9 Type 2 diabetes mellitus without complications; I25.5 Ischemic cardiomyopathy; I50.23 Acute on chronic systolic (congestive) heart failure; M10.9 Gout, unspecified; K21.9 Gastro-esophageal reflux disease without esophagitis; I25.10 Atherosclerotic heart disease of native coronary artery without angina pectoris; E78.00 Pure hypercholesterolemia, unspecified; G47.30 Sleep apnea, unspecified; F41.9 Anxiety disorder, unspecified; E03.9 Hypothyroidism, unspecified; Z87.891 Personal history of nicotine dependence; Z79.82 Long term (current) use of aspirin; Z79.84 Long term (current) use of oral hypoglycemic drugs; Z79.02 Long term (current) use of antithrombotics/antiplatelets
CPT/HCPCS: 71010; 80048; 80053; 81001; 82948; 83690; 83880; 84484; 85025; 93005; 96374; J1650; J1940

== ENCOUNTER 2017-09-25 11:34 | Emergency (ER) | payer MEDICARE, OTHER ==
[~2017-09-25] VITALS: Ht 177.8 cm; Wt 93.0 kg
[2017-09-25 11:45] VITALS: BP 99/72; PULSE 98; RESP 18; TEMP 97.5; O2SAT 98
--- NOTE | 2017-09-25 12:27 | PD ---
HPI Chief Complaint: Complaint Time Seen by Provider: 11:50 Travel History International Travel<30 days: No Contact w/Intl Traveler<30days: No Traveled to known affect area: No History of Present Illness HPI 77-year-old male patient with history of diabetes, gastroparesis, previous PR, hypertension, BPH, presents to the ER today because he states that he has had trouble urinating since yesterday afternoon. He complains of burning but denies any blood in the urine, abdominal pain, fevers, or any other symptoms. He has had problems with his urine before and follows up with Dr. Correa. Modifying Factors: None Associated Signs & Symptoms: Inability to urinate Risk Factors: BPH history PFSH Past Medical History Anxiety: Yes Cancer: No Cardiac Catheterization: Yes ( "50% blockage" ) Cardiovascular Problems: Yes High Cholesterol: Yes Diabetes: Yes Diminished Hearing: No Genitourinary: No Hepatitis: Yes (A) Hiatal Hernia: No Hypertension: Yes Implanted Vascular Access Dvce: Yes Neurologic: Yes (altered mental status) Psychiatric: Yes Reproductive: No Respiratory: Yes (SLEEEP APNEA) Immunizations Current: No Sleep Apnea: Yes Thyroid Disease: No Past Surgical History Abdominal Surgery: Yes (LAP RYLIE) Body Medical Devices: MORPHINE PUMP RIGHT ABDOMEN Cholecystectomy: Yes Pacemaker: No Other Surgery: Yes (FINGERS AMPUTATED TO RIGHT HAND AND NOSE SURGERY) Social History Alcohol Use: No Tobacco Use: No (quit 50 years ago) Substance Use: No Allergies-Medications (Allergen,Severity, Reaction): Coded Allergies: MRI PRECAUTION (Verified Adverse Reaction, Severe, SPINAL STIMULATOR, ) DML 08/13/16, Reported Meds & Prescriptions Reported Meds & Active Scripts Active Potassium Chloride ER (Potassium Chloride) 10 Meq Cap 20 Meq PO DAILY Xanax (Alprazolam) 0.5 Mg Tab 0.5 Mg PO BID PRN Lasix (Furosemide) 20 Mg Tab 40 Mg PO BID Hold if SBP<95 Symbicort Inh (Budesonide/Formoterol Fumarate) 160-4.5 Mcg/Act Aero 1 Puff INH Q12HR Aspirin Low Strength (Aspirin) 81 Mg Chew 81 Mg PO DAILY Coreg (Carvedilol) 3.125 Mg Tab 3.125 Mg PO BID Atorvastatin (Atorvastatin Calcium) 80 Mg Tab 80 Mg PO HS Reported Hydrocodone-Acetaminophen 10-325 mg Tab 1 Tab PO Q6H PRN Dicyclomine (Dicyclomine HCl) 20 Mg Tab 20 Mg PO QID Trazodone (Trazodone HCl) 100 Mg Tablet 150 Mg PO HS Vitamin D-1000 (Cholecalciferol) 1,000 Unit Tab 2,000 Units PO DAILY Magnesium Oxide 500 Mg Tab 500 Mg PO BID Carafate (Sucralfate) 1 Gm Tab 1 Gm PO TID On empty stomach [Morphine Pump] Terazosin (Terazosin HCl) 2 Mg Cap 2 Mg PO HS Pantoprazole (Pantoprazole Sodium) 40 Mg Tab 40 Mg PO DAILY Levothyroxine (Levothyroxine Sodium) 25 Mcg Tab 25 Mcg PO DAILY Allopurinol 100 Mg Tab 100 Mg PO DAILY Metformin (Metformin HCl) 1,000 Mg Tab 1,000 Mg PO BIDPC With meals Review of Systems Except as stated in HPI: all other systems reviewed are Neg Physical Exam Narrative GENERAL: Pleasant well-developed elderly white male patient currently in mild distress. Awake and oriented 3. SKIN: Focused skin assessment warm/dry. HEAD: Atraumatic. Normocephalic. EYES: Pupils equal and round. No scleral icterus. No injection or drainage. ENT: No nasal bleeding or discharge. Mucous membranes pink and moist. NECK: Trachea midline. No JVD. CARDIOVASCULAR: Regular rate and rhythm. No murmur appreciated. RESPIRATORY: No accessory muscle use. Clear to auscultation. Breath sounds equal bilaterally. GASTROINTESTINAL: Abdomen soft, non-tender, nondistended. Hepatic and splenic margins not palpable. MUSCULOSKELETAL: No obvious deformities. No clubbing. No cyanosis. No edema. NEUROLOGICAL: Awake and alert. No obvious cranial nerve deficits. Motor grossly within normal limits. Normal speech. PSYCHIATRIC: Appropriate mood and affect; insight and judgment normal. Data Data Last Documented VS Vital Signs Date Time Temp Pulse Resp B/P (MAP) Pulse Ox O2 Delivery O2 Flow Rate FiO2 09/25/17 11:45 97.5 98 18 99/72 (81) 98 Orders Orders Urinalysis - C+S If Indicated (09/25/17 11:50) Urinary Catheter Insert/Apply (09/25/17 11:50) Complete Blood Count With Diff (09/25/17 12:51) Comprehensive Metabolic Panel (09/25/17 12:51) Ed Discharge Order (12/11/17 13:58) Labs Laboratory Tests Test 12/11/17 12:30 09/25/17 13:15 Urine Collection Type VOIDED Urine Color YELLOW Urine Turbidity CLEAR Urine pH 6.0 Urine Specific [place] 1.012 Urine Protein NEG mg/dL Urine Glucose (UA) NEG mg/dL Urine Ketones NEG mg/dL Urine Occult Blood NEG Urine Nitrite NEG Urine Bilirubin NEG Urine Leukocyte Esterase NEG Urine WBC 0-2 /hpf Urine Squamous Epithelial Cells 0-3 /hpf Microscopic Urinalysis Comment CULT NOT INDICATED White Blood Count 5.9 TH/MM3 Red Blood Count 4.17 MIL/MM3 Hemoglobin 11.6 GM/DL Hematocrit 35.6 % Mean Corpuscular Volume 85.3 FL Mean Corpuscular Hemoglobin 27.7 PG Mean Corpuscular Hemoglobin Concent 32.5 % Red Cell Distribution Width 14.9 % Platelet Count 202 TH/MM3 Mean Platelet Volume 8.3 FL Neutrophils (%) (Auto) 75.9 % Lymphocytes (%) (Auto) 13.7 % Monocytes (%) (Auto) 8.3 % Eosinophils (%) (Auto) 1.7 % Basophils (%) (Auto) 0.4 % Neutrophils # (Auto) 4.5 TH/MM3 Lymphocytes # (Auto) 0.8 TH/MM3 Monocytes # (Auto) 0.5 TH/MM3 Eosinophils # (Auto) 0.1 TH/MM3 Basophils # (Auto) 0.0 TH/MM3 CBC Comment DIFF FINAL Differential Comment Blood Urea Nitrogen 19 MG/DL Creatinine 1.10 MG/DL Random Glucose 114 MG/DL Total Protein 6.2 GM/DL Albumin 3.3 GM/DL Calcium Level 8.5 MG/DL Alkaline Phosphatase 66 U/L Aspartate Amino Transf (AST/SGOT) 17 U/L Alanine Aminotransferase (ALT/SGPT) 26 U/L Total Bilirubin 0.9 MG/DL Sodium Level 132 MEQ/L Potassium Level 4.2 MEQ/L Chloride Level 94 MEQ/L Carbon Dioxide Level 26.9 MEQ/L Anion Gap 11 MEQ/L Estimat Glomerular Filtration Rate 65 ML/MIN [facility] Medical Decision Making Medical Screen Exam Complete: Yes Emergency Medical Condition: Yes Medical Record Reviewed: Yes Interpretation(s) Laboratory Tests Test 09/25/17 12:30 09/25/17 13:15 Red Blood Count 4.17 MIL/MM3 (4.50-5.90) Hemoglobin 11.6 GM/DL (13.0-17.0) Hematocrit 35.6 % (39.0-51.0) Neutrophils (%) (Auto) 75.9 % (16.0-70.0) Monocytes (%) (Auto) 8.3 % (0.0-8.0) Lymphocytes # (Auto) 0.8 TH/MM3 (1.0-4.8) Blood Urea Nitrogen 19 MG/DL (7-18) Random Glucose 114 MG/DL (74-106) Total Protein 6.2 GM/DL (6.4-8.2) Albumin 3.3 GM/DL (3.4-5.0) Sodium Level 132 MEQ/L (136-145) Chloride Level 94 MEQ/L (98-107) Estimat Glomerular Filtration Rate 65 ML/MIN (>89) Differential Diagnosis Difficulty urinating: Urinary retention versus dehydration versus UTI Narrative Course Urinary catheterization was done and patient is putting out yellow urine, but not a large amount. Patient's family states that he has not been drinking well , is on hospice currently, and he has history of CHF so they are trying to keep his fluid intake below 64 ounces. And but, patient is not drinking a whole lot. He denies any vomiting or other issues. At this point, he does not have a UTI and vital signs are stable in the ER. He does not have other symptoms. I suspect that his gastroparesis may be part of the problem but he is not vomiting and my plan would be to release him and have family continue to encourage by mouth intake. He should be taking in 48-64 ounces as previously prescribed by his physician. Patient monitor his urine output, he should be urinating several times a day. If symptoms worsen, he should return for any worsening in issues, dizziness, fevers, abdominal pains, or new symptoms as needed. The plan was discussed with the patient's family and patient and they state understanding. They can also talked to the hospitalist nurse and physician regarding ongoing issues to help them care for this problem. Diagnosis Primary Impression: Decreased urination Additional Impression: Mild dehydration Disposition: 01 DISCHARGE HOME Condition: Stable SoonGiuseppe silvestre MD Sep 25, 2017 12:27
[2017-09-25 12:42] LABS: BLOOD, URINE NEG (NEG); GLUCOSE,URINE NEG (NEG); KETONE, URINE NEG (NEG); NITRITE,URINE NEG (NEG)
[2017-09-25 12:58] LABS: METHOD OF COLLECTION VOIDED; URINE COLOR YELLOW (YELLW/STRAW)
[2017-09-25 12:59] LABS: WBC, URINE 0-2 /hpf (0-5)
[2017-09-25 13:00] LABS: COMMENT (UR) CULT NOT INDICATED; CULTURE IF INDICATED CULT NOT INDICATED; SQUAMOUS EPITHELIAL CELL URINE 0-3 /hpf (0-5)
[2017-09-25 13:37] LABS: AUTOMATED NEUTROPHIL # 4.5 TH/MM3 (1.8-7.7); BASOPHIL % 0.4 % (0.0-2.0); EOSINOPHIL # 0.1 TH/MM3 (0-0.4); EOSINOPHIL % 1.7 % (0.0-4.0); HEMATOCRIT 35.6 % (39.0-51.0); HEMO FLAGS DIFF FINAL; LYMPH % 13.7 % (9.0-44.0); LYMPHOCYTE # 0.8 TH/MM3 (1.0-4.8); MEAN CELL VOLUME 85.3 FL (80.0-100.0); MEAN CORPUSCULAR HEMOGLOBIN 27.7 PG (27.0-34.0); MEAN CORPUSCULAR HGB CONC 32.5 % (32.0-36.0); MONO % 8.3 % (0.0-8.0); NEUT % 75.9 % (16.0-70.0); PLATELET COUNT 202 TH/MM3 (150-450); RED BLOOD COUNT 4.17 MIL/MM3 (4.50-5.90); RED CELL DISTRIBUTION WIDTH 14.9 % (11.6-17.2); WHITE BLOOD COUNT 5.9 TH/MM3 (4.0-11.0)
[2017-09-25 13:38] LABS: CHLORIDE 94 MEQ/L (98-107); POTASSIUM 4.2 MEQ/L (3.5-5.1); SODIUM (NA) 132 MEQ/L (136-145)
[2017-09-25 13:41] LABS: ANION GAP 11 MEQ/L (5-15); BICARBONATE 26.9 MEQ/L (21.0-32.0); BLOOD UREA NITROGEN 19 MG/DL (7-18)
[2017-09-25 13:44] LABS: ALT (GPT) 26 U/L (12-78); AST (GOT) 17 U/L (15-37); GLOMERULAR FILTRATION RATE 65 ML/MIN (>89)
[2017-09-25 13:46] LABS: TOTAL BILIRUBIN ADULT 0.9 MG/DL (0.2-1.0)
[2017-09-25 13:47] LABS: ALKALINE PHOSPHATASE 66 U/L (45-117)
[2017-09-25 14:22] VITALS: BP 100/69
== END 2017-09-25 14:25 | disposition home or self-care (01) ==
LOC: PHED 11:34
DX: E86.0 Dehydration (principal); E11.43 Type 2 diabetes mellitus with diabetic autonomic (poly)neuropathy; K31.84 Gastroparesis; E78.00 Pure hypercholesterolemia, unspecified; I10 Essential (primary) hypertension; Z79.84 Long term (current) use of oral hypoglycemic drugs; Z87.891 Personal history of nicotine dependence
CPT/HCPCS: 51702; 80053; 81001; 85025